=== PATIENT | female | born 1950 | race Caucasian/White ===

== ENCOUNTER 2025-02-10 08:59 | Emergency (ER) | payer MEDICARE, OTHER, SELFPAY ==
[2025-02-10] VITALS (11 sets, daily range): BP systolic 101–145; BP diastolic 67–83; PULSE 54–62; RESP 11–29; TEMP 36.3; O2SAT 96–98
--- NOTE | ~2025-02-10 | XR_ITS ---
Clinical Indication: Weakness AP and lateral views of the chest: Comparison: None Findings: The lungs are clear, without evidence of focal consolidation or pleural effusion. Cardiome diastinal silhouette is within normal limits. Bones and soft tissues are unremarkable. Impression: Normal chest. Reviewed, dictated and finalized at location . Impression: Normal chest.
--- NOTE | 2025-02-10 09:09 | ECG_ITS ---
Test Date: 2025-02-10 09:08:32 Measurements Intervals [place] Rate: 54 P: 55 CA: 201 QRS: 52 QRSD: 94 T: 45 QT: 431 QTc: 411 Interpretive Statements SINUS BRADYCARDIA BORDERLINE AV CONDUCTION DELAY BASELINE ARTIFACT- I, II, III, AVR, AVL, AVF, V1-V6 BORDERLINE ECG No previous ECG available for comparison Electronically Signed On 02-10-2025 09:33:58 CDT by Ran Laura D.O.
[2025-02-10 09:26] LABS: Basophils Absolute Auto 0.1 K/mm3 (0.0-0.1); Basophils Percent Auto 0.6 % (0.2-1.2); Eosinophils Absolute Auto 0.3 K/mm3 (0-0.3); Eosinophils Percent Auto 3.4 % (0-4.4); Hematocrit 41.4 % (37.0-47.0); Hemoglobin 13.5 g/dL (12.0-15.0); Immature Granulocyte Absolute 0.04 K/mm3 (0.00-0.031); Immature Granulocyte Percent A 0.5 % (0-0.5); Lymphocytes Absolute Auto 0.98 K/mm3 (0.9-3.2); Lymphocytes Percent Auto 11.3 % (18.3-44.2); Mean Corpuscular HGB Conc 32.6 g/dl (32-36); Mean Corpuscular Hemoglobin 30.1 pg (26-34); Mean Corpuscular Volume 92.2 fl (80-100); Mean Platelet Volume 9.9 fl (7.4-10.4); Monocytes Absolute Auto 0.8 K/mm3 (0.1-0.6); Monocytes Percent Auto 8.8 % (2.6-8.5); Neutrophils Absolute Auto 6.6 K/mm3 (1.3-6.7); Neutrophils Percent Auto 75.4 % (45.5-73.1); Platelet Count Result 284 k/mm3 (150-375); Red Blood Count 4.49 M/mm3 (4.2-5.4); Red Cell Distribution Width 13.1 % (11.5-14.5); White Blood Count 8.7 K/mm3 (4.5-10.0)
[2025-02-10 09:38] LABS: Alanine Aminotransferase 24 U/L (6-35); Albumin Level 4.3 g/dL (3.5-5.1); Alkaline Phosphatase 60 U/L (38-126); Anion Gap 7 mmol/L (4-12); Aspartate Amino Transferase 38 U/L (14-36); Bilirubin,Total 0.9 mg/dL (0.2-1.3); Blood Urea Nitrogen 15 mg/dL (7-17); Carbon Dioxide 26 mmol/L (22-30); Chloride 97 mmol/L (98-107); Estimated CRCL calculation 49 ml/min; Estimated Glomerular Filt Rate > 60; Glucose 103 mg/dL (65-110); Potassium 4.5 mmol/L (3.4-5.0); Sodium 130 mmol/L (137-145)
--- NOTE | 2025-02-10 09:44 | ED_ITS ---
HPI - Weakness General Chief complaint: Weakness Stated complaint: weakness, near syncope Time Seen by Provider: 02/10/25 09:43 Source: patient, family and RN notes reviewed Mode of arrival: EMS Limitations: no limitations History of Present Illness HPI Narrative: Patient presents with report of weakness. She states she had a near syncopal episode and adamantly denies losing consciousness and muscle tone however daughter states that she did. Patient states when she woke up she still felt tired. She felt like she had to go the bathroom and had a hard stool. But later she felt like she had to go to the bathroom again due to gurgling in her abdomen. She states she did not really eat dinner last night and in general over the last several days has been eating junk food ([employer]) while visiting. She notes that she had abdominal pain and felt flushed. For breakfast she had had toast and coffee and half of a boost drink. EMS was called and they reported initial blood pressure of 78/48. She has a history of hypertension and took her medications 30 minutes before her episode. She is wondering if perhaps she does not need to be on antihypertensives anymore given that she has made a lot of lifestyle changes including quitting smoking and exercising. Will check she endorses exercising yesterday and, this combined with the fact that she did not really eat well yesterday makes her believe she might be a bit dehydrated. She felt nauseated around the time of the event. She feels absolutely fine now any abdominal pain. She had no chest pain shortness of breath at the time of the incident. No history of CHF. When she felt acutely unwell she was laying down on the couch with her head down but got up to try to use the bathroom again and in fact had 2 more bowel movements while EMS was present. Related Data Allergies Allergy/AdvReac Type Severity Reaction Status Date / Time Penicillins Allergy Severe Anaphylactic Verified 02/10/25 09:17 Shock ibuprofen (From Motrin) AdvReac Intermediate Abdominal Verified 02/10/25 09:17 Pain codeine AdvReac Unknown Unknown Verified 02/10/25 09:17 [facility] Past Medical History Medical History Hypertension Social History Social History Social History: Starting to exercise regularly 2024 Smoking status: Former smoker Exam 2 Narrative: GENERAL: Well-appearing, well-nourished, and in no acute distress. HEAD: Normocephalic, atraumatic. EYES: Non injected, non icteric ENT: Nares clear, no rhinorrhea or epistaxis. Tacky mucous membranes NECK: Supple. CHEST: Speaking in full sentences. No respiratory distress. HEART: Borderline bradycardic rate and rhythm. . ABDOMEN: Soft, nondistended. EXTREMITIES: Normal range of motion. No lower extremity edema. SKIN: Warm, dry, no rash. NEURO: No focal deficits. Alert and oriented x3. PSYCH: Normal mood and affect. Course Vital Signs Vital signs: Vital Signs Temperature 97.3 F L 02/10/25 08:58 Pulse Rate 59 L 02/10/25 08:58 Respiratory Rate 16 02/10/25 08:58 Blood Pressure 134/83 02/10/25 08:58 Pulse Oximetry 98 02/10/25 08:58 Temperature 97.3 F L 02/10/25 08:58 Pulse Rate 62 02/10/25 12:16 Respiratory Rate 20 02/10/25 12:16 Blood Pressure 116/70 02/10/25 12:16 Pulse Oximetry 96 02/10/25 12:16 Oxygen Delivery Room Air 02/10/25 09:22 MDM - Weakness MDM Narrative Medical decision making narrative: Patient presents after report of feeling weak and nauseated and having a syncopal versus near syncopal event (patient adamantly denies losing muscle tone/consciousness, only that she felt like she might). In the emergency department she is afebrile with vital signs notable for borderline bradycardia. Patient's symptoms sound very consistent with orthostatic hypotension as she knows that there preceded by her laying on the couch and then getting up to go to the bathroom. There is possibly component of vasovagal as well given that she had been having multiple bowel movements prior to feeling that way and then even after EMS arrival. They reported initial blood pressure of 78/48 however her blood pressure on arrival here is 134/83. Hyponatremia with no prior for comparison. Not to a degree to suggest cause of symptoms. Normal troponin. Patient is given IV fluid hydration. Ortho stats are reviewed and appropriate. Starke Syncope Rule: Congestive heart failure history: 0 Hematocrit <30%: 0 EKG abnormal (changed or any non-sinus rhythm): 0 SOB symptoms: 0 SBP <90mmHg at triage: 0 Low risk. At the time of my assessment patient stated she was already feeling much better and she continues to feel sign while in the emergency department. Nurse notes that she is able to ambulate with steady gait to the bathroom. She was only able to initially give a small amount of urine which even further supports a degree of dehydration (combined with tacky mucous membranes on initial assesment) which has now been addressed. Differential Diagnosis Differential diagnosis: Likely acute myocardial infarction, anemia, hypoglycemia, dehydration and other (Orthostatic, vasovagal, tachydysrhythmia, Sukhdev dysrhythmia, complete heart block) Lab Data Attestation: I reviewed the patient's lab results. 02/10/25 09:20 02/10/25 09:20 Labs: Lab Results 02/10/25 02/10/25 02/10/25 Range/Units 09:19 09:20 11:27 WBC 8.7 (4.5-10.0) K/mm3 RBC 4.49 (4.2-5.4) M/mm3 Hgb 13.5 (12.0-15.0) g/dL Hct 41.4 (37.0-47.0) % MCV 92.2 (80-100) fl MCH 30.1 (26-34) pg MCHC 32.6 (32-36) g/dl RDW 13.1 (11.5-14.5) % Plt Count 284 (150-375) k/mm3 MPV 9.9 (7.4-10.4) fl Immature Gran % (Auto) 0.5 (0-0.5) % Neut % (Auto) 75.4 H (45.5-73.1) % Lymph % (Auto) 11.3 L (18.3-44.2) % [place] % (Auto) 8.8 H (2.6-8.5) % Eos % (Auto) 3.4 (0-4.4) % Baso % (Auto) 0.6 (0.2-1.2) % Lymph # (Auto) 0.98 (0.9-3.2) K/mm3 [place] # (Auto) 0.8 H (0.1-0.6) K/mm3 Eos # (Auto) 0.3 (0-0.3) K/mm3 Baso # (Auto) 0.1 (0.0-0.1) K/mm3 Abs Immat Gran (auto) 0.04 H (0.00-0.031) K/mm3 Absolute Neuts (auto) 6.6 (1.3-6.7) K/mm3 Absolute Nucleated RBC 0.000 (0.0-0.012) K/mm3 Nucleated RBC % 0.0 (0.0-0.2) % Sodium 130 L (137-145) mmol/L Potassium 4.5 (3.4-5.0) mmol/L Chloride 97 L (98-107) mmol/L Carbon Dioxide 26 (22-30) mmol/L Anion Gap 7 (4-12) mmol/L BUN 15 (7-17) mg/dL Creatinine 0.67 L (0.7-1.0) mg/dL Estim Creat Clear Calc 49 ml/min Estimated GFR > 60 (59 - ) Glucose 103 (65-110) mg/dL Calcium 9.0 (8.4-10.2) mg/dL Total Bilirubin 0.9 (0.2-1.3) mg/dL AST 38 H (14-36) U/L ALT 24 (6-35) U/L Alkaline Phosphatase 60 (38-126) U/L Troponin I < 0.012 (0.000-0.034) ng/mL Total Protein 7.0 (6.3-8.2) g/dL Albumin 4.3 (3.5-5.1) g/dL Urine Color Cancelled Urine Appearance Cancelled Urine pH Cancelled Ur Specific [place] Cancelled Urine Protein Cancelled Urine Glucose (UA) Cancelled Urine Ketones Cancelled Ur Blood (Man) Cancelled Urine Nitrate Cancelled Urine Bilirubin Cancelled Urine Urobilinogen Cancelled Add Ur Microanalysis Cancelled Leukocyte Esterase Rfl Cancelled Urine RBC Cancelled Urine WBC Cancelled Urine WBC Clumps Cancelled Ur Squamous Epith Cells Cancelled Ur Transition Epith Cell Cancelled Ur Renal Epithelial Cell Cancelled [place] Biurate Crystals Cancelled Calcium Carbonate Cryst Cancelled Calcium Phosphate Cryst Cancelled Calcium Oxalate Crystal Cancelled Leucine Crystals Cancelled Cystine Crystals Cancelled Uric Acid Crystals Cancelled Triple Phos Crystals Cancelled Sulfonamide Crystals Cancelled Cholesterol Crystals Cancelled Talc Crystals Cancelled Tyrosine Crystals Cancelled Hippuric Acid Crystals Cancelled Bilirubin Crystals Cancelled Other Crystals Cancelled Amorphous Sediment Cancelled Other Sediment Cancelled Urine Bacteria Cancelled Urine Casts Cancelled Cellular Casts Cancelled Epithelial Casts Cancelled Fatty Casts Cancelled Hyaline Casts Cancelled Granular Casts Cancelled Waxy Casts Cancelled Broad Casts Cancelled RBC Casts Cancelled WBC Casts Cancelled Urine Starch Cancelled Urine Mucus Cancelled Urine Trichomonas Cancelled Urine Yeast (Budding) Cancelled Ur Oval Fat Bodies Cancelled Sperm Presence Cancelled Imaging Data Radiologist's impression: Impression: Normal chest. ECG Data EKG #1: Attestation: I personally reviewed and interpreted this ECG as follows: ECG completion date: 02/10/25 ECG completion time: 09:08 Interpretation: Sinus bradycardia rate of 54 beats per minute. UT interval 201. This is consistent with a first-degree AV block. QRS 94. QT/QTC 431/417. Good R-wave progression across the precordial leads. No T-wave inversions. Discharge Plan Discharge Clinical Impression: Hyponatremia, Orthostatic syncope, Near syncope Patient Disposition: Home Condition: Stable Instructions: Antibiotic Form, Hyponatremia (ED), Near Syncope (ED), Syncope in Older Adults (ED) Additional Instructions: As we discussed, your symptoms sound consistent with orthostatic near syncope/syncope. We checked your vital signs to assess for this after which received fluid hydration, they were better. Rest and maintain your hydration and nutrition today. Follow-up the primary care physician. If you do not have 1 but remain in the area the name of a doctor is listed below. Return to the emergency department with any new or worsening symptoms Patient Language: Uzbek Follow-up/Referrals: Asim Abdi MD [Physician] - UNKNOWN,DOCTOR [Primary Care Provider] - Time of Disposition: 12:15
[2025-02-10] MEDS: SODIUM CHLORIDE 0.9% IV 1,000 ML 999 ML IV CONT (10:13)
[2025-02-10 10:53] LABS: Troponin I < 0.012 ng/mL (0.000-0.034)
--- OUTSIDE RECORDS SUMMARY | 2025-02-10 11:28 | XMS_ITS ---
Author Organization [facility] [place] Address [address] [place] [address] Care Team Providers Care Upsetter Helper Name Role Phone Mya Winchester Primary Care Provider Minh Tovar [phone] REASON FOR VISIT test results Encounters Encounter Location Date Provider Diagnosis [facility] [address] [facility] [address] [place] [address] 12/18/2024 Minh Holm Plan Of Treatment Next Appt Details Provider Name:Minh Xie i, 04/14/2025 12:50:00 PM, [address] [place], [address], Progress Notes * Annemarie ORTEGADOB:[birth year] (74 yo F)Acc No.[id number]:12/18/2024 Patient: Francisco Annemarie RUBIO :1950 A ge:74 Y S ex:Female [address] [address] [place] [address] * true * Date: Generated for Printi ng/Faxing/eTransmitting on: 0 02/10/2025 12:28 PM EDT
--- OUTSIDE RECORDS SUMMARY | 2025-02-10 11:29 | XMS_ITS | Encounter Summary ---
Author Organization [facility] Address [address] [place] [id number] Care Team Providers Care Unix Administrator Name Role Phone Kareen Winchester MD Primary Care Provider + Encounter Details Date Type Department Care Team (Late st Contact Info) Description 05/26/2024 Lab Requisition [facility] [address] [place] [address] [place] [address] [facility] [address] [place] [address] Social History Tobacco Use Types Packs/Day Years Used Date Smoking Tobacco: Former Cigarettes Q uit: 11/05/2018 Smokeless Tobacco: Former Quit: 11/05/2018 Comments:Hx 49 years 1/2 to 1 ppd. Multiple attempts to quit starting in 1992 Alcohol Use Standard Drinks/Week Comments Not Currently 0 (1 standard drink = 0.6 oz pur e alcohol) Comments Unknown Sex and Gender Information Value Date Recorded Sex Assigned at Female 01/23/2024 10:45 PM EDT Legal Sex Female 10:45 PM EDT Gender Identity Female 01/23/2024 10:45 PM EDT Sexual Orientation Straight 01/23/2024 10 :45 PM EDT documented as of this encounter Plan of Treatment Upcoming Encounters Date Type Department Care Team (Late st Contact Info) Description 06/02/2025 9:30 AM EDT [facility] [address] [facility] [address] [place] [address] Lazaro Murillo MD [address] [place] [address] documented as of this encounter Procedures Procedure Name Priority Date/Time Associated Diagnosis Comments BODY FLUID MAN DIFF KEYBOARD Routine 05/26/2024 4:20 PM EDT BODY FLUID CELL COUNT WITH DIFF IF INDICATED STAT 05/26/2024 4:20 PM EDT BODY FLUID CULTURE STAT 05/26/2024 4: 20 PM EDT WOUND CULTURE STAT 05/26/2024 4:20 PM EDT documented in this encounter Results * Body Fluid Manual Differential (Lab only) (05/26/2024 4:20 PM EDT) Neutrophils 23 % 05/26/2024 6:52 PM EDT [facility] Lymphocytes 61 % 05/26/2024 6:52 PM EDT [facility] Monocytes/Macrop hages 13 % 05/26/2024 6:52 PM EDT [facility] Eosinophils 3 % 05/26/2024 6:52 PM EDT [facility] Total Cells Counted 100 05/26/2024 6:52 PM EDT [facility] Body Fluid HIP JOINT SYNOVIAL FLUID / Unknown 05/26/2024 4:20 PM EDT 05/26/2024 5:47 PM EDT us Nati Whitney MD LAB BLOOD ORDERABLES Final Resul t [facility] [address] [place] [address] * (ABNORMAL) Body Fluid Cell Count, Diff if indicated ( [facility] Only ) (05/26/2024 4:20 PMEDT) Specimen Source Synovial, Hip, Right 05/26/2024 6:52 PM EDT [facility] Body Fluid Color [place](A) Colorless 05/26/2024 6:52 PM EDT [facility] Body Fluid Clarity Hazy(A) Clear 05/26/2024 6:52 PM EDT [facility] RBC 46,000(H) <=0 05/26/2024 6:52 PM EDT [facility] Total Nucleated Cells 571(H) <=200 /mcL 05/26/2024 6:52 PM EDT [facility] Body Fluid HIP JOINT SYNOVIAL FLUID / Unknown 05/26/2024 4:20 PM EDT 05/26/2024 5:47 PM EDT Nati Whitney MD LAB BODY FLUIDS ORDERABLES Final Result Performing Organization Address City/[facility]/ZIP Co de Phone Number [address] [facility] [place] [address] * Wound Culture (05/26/2024 4:20 PM EDT) Wound Culture No growth at 2 days [facility]MU 05/29/2024 7:38 AM EDT [facility] Gram stain Few PMNs 05/29/2024 7:38 AM EDT [facility] Gram stain No organism seen 05/29/2024 7:38 AM EDT [facility] Swabbed Collection HIP JOINT SYNOVIAL FLUID / Unknown 05/26/2024 4:20 PM EDT 05/26/2024 5:47 PM EDT Nati Whitney MD LAB MICROBIOLOGY - GENERAL ORDER MARCELO Final Result Performing Organization Address City/[facility]/ZIP Co de Phone Number [address] [facility] [place] [address] * Body Fluid Culture (05/26/2024 4:20 PM EDT) Body Fluid Culture No Growth at 4 days UMU 05/30/2024 4:53 PM EDT [facility] Gram stain No PMNs, no organisms seen 05/30/2024 4:53 PM EDT [facility] Body Fluid HIP JOINT SYNOVIAL FLUID / Unknown 05/26/2024 4:20 PM EDT 05/26/2024 5:47 PM EDT us Nati Whitney MD LAB MICROBIOLOGY - GENERAL ORDER MARCELO Final Result [facility] [address] [place] [address] documented in this encounter Visit Diagnoses Not on filedocumented in this encounter Care Teams Unix Administrator Relationship Specialty Start Date End Date Kareen Winchester MD [address] [place] [address] PCP - General Family Medicine 07/09/10 documented as of this encounter
--- OUTSIDE RECORDS SUMMARY | 2025-02-10 11:29 | XMS_ITS | Patient Health Record ---
Author Organization [facility] Address [address] [place] [address] Care Team Providers Care Route Clerk Name Role Phone Ranulfo Mya Primary Care Provider UnavailMinh Kemp Unavailable [phone] Remi Goodman Unavailable [phone] Allergies Allergen (clinical drug ingredient) Drug/Non Drug Allergy documented on EMR Reaction Allergy Type Onset Date Status ibuprofen Ibuprofen stomach upset Drug Allergy Act hipolito codeine Codeine anaphylaxis Drug Allergy Activ e Penicillin anaphylaxis Drug Allergy Acti ve Reason For Referral No Information Medications Medication SIG (Take, Route, Frequency, Duration) Notes Start Date End Date Status Aspirin 81 MG 1 tablet Orally Once a day Active Eliquis 5 MG 1 tablet Orally Twic e a day for 90 days Active ZyrTEC 10 MG 1 tablet Orally Once a day Active Atorvastatin Calcium 40 MG 1 tablet Orally Once a day Active Fish Oil Active Calcium & Magnesium Carbonates Active Vitamin C Active Spiriva Respimat 2.5 MCG/ACT 2 puffs Inhalation once a day Not-Taking oxyBUTYnin Chloride ER 5 MG 1 tablet Orally Once a day Active Albuterol Sulfate HFA 108 (90 Base) MCG/ACT 1 puff as needed Inhalation every 4 hrs Active Stool Softener Activ e Zinc Active busPIRone HCl 5 MG 1 tablet daily once a day Active clopidogrel 75mg once daily No t-Taking Fluticasone Propionate 50 MCG/ACT 1 spray in each nostril Nasally Twice a day Active Flonase Active Colchicine 0.6 MG 1 tablet Orally once a day Not-Taking Varenicline Tartrate 1 MG 1 tablet after eating with a full glass of water Orally TWICE A DAY As needed Active Vitamin B + C Complex Not-Taking Symbicort 160-4.5 MCG/ACT 2 puffs Inhala tion Twice a day Active Alendronate Sodium 70 MG 1 tablet 30 min utes before the first food, beverage or medicine of the day with plain water Orally Once a day every 7 days Active Budesonide-Formoterol Fumarate 160-4.5 MCG/ACT 1 puff as needed Inhalation once a day Active Sodium Chloride 1 GM 1 tablet Orally onc e a day Active Ferrous Sulfate 325 MG as directed Orally Active Omeprazole 20 MG 1 capsule 30 minutes before morning meal Orally Once a day Active Tdcyxpf-Cmhvygdzh-Uflz 333-133-8.3 MG 1 tablet with a meal Orally Once a day Active Nebulizer - as directed three ti mes a day Active Lisinopril 20 MG TAKE 1 TABLET BY [place] TH EVERY DAY for 90 Active Folic Acid Active Metoprolol Tartrate 25 MG TAKE 1 TABLET BY MOUTH TWICE A DAY WITH FOOD FOR 30 DAYS for 30 Active Mucinex 600 MG 1 tablet as needed Orally every 12 hrs Active Turmeric 500 MG as directed Orally Active Birchleaf 3 1200 MG 1 capsule Orally Onc e a day Active Vitamin B12 1000 MCG 1 tablet Orally onc e a day Active Social History Tobacco Use: Social History Observation Description Date Details (start date - stop date) Never Smoker NA - NA Tobacco Use/Smoking Question Answer Notes Are you a nonsmoker Problems Problem Type SNOMED Code ICD Code Onset Dates Problem Status W/U Status Risk Notes Problem Atrial fibrillation (disorder) (69028789) Afib (I48.91) Active confirmed Problem 999972286 Paroxysmal atria l fibrillation (I48.0) Active confirmed Problem 310936898 Bilateral caroti d artery stenosis (I65.23) Active confirmed Problem 195379225 Coronary artery disease involving [place] coronary artery of [place] heart without angina pectoris (I25.10) Active confirmed Problem 97918908 Hyperlipidemia, unspecified hyperlipidemia type (E78.5) Active confirmed Problem 82978820 Hypertension, unspecified type (I10) Active confirmed Problem 857588627568736 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) Active confirmed Vital Signs Heart Rate 60 /min 08/20/2024 Oximetry 93 % 08/20/2024 Height 62 in 08/20/2024 Weight 131 lbs 08/20/2024 BMI 23.96 kg/m2 08/20/2024 Encounters Encounter Location Date Provider Diagnosis [facility] [address] [place] [address] 08/20/2024 Remi Goodman Coronary artery dise ase involving [place] coronary artery of [place] heart without angina pectoris I25.10 ; Hypertension, unspecified type I10 ; Paroxysmal atrial fibrillation I48.0 ; Bilateral carotid artery stenosis I65.23 ; Hyperlipidemia, unspecified hyperlipidemia type E78.5 ; Other pericarditis, unspecified chronicity I31.8 ; History of COPD Z87.09 and Former smoker Z87.891 [facility] [address] [facility] [place] [address] 12/11/2024 Minh Holm [facility] [address] [place] [address] 12/18/2024 Minh Alta [facility] [address] [place] [address] 12/24/2024 Minh Alta [facility] [address] [place] [address] 12/24/2024 Minh Alta Assessments Encounter Date Diagnosis (ICD Code) Assessment Notes Treatment Notes Treatment Clinical Notes Section Notes 08/20/2024 Coronary artery disease involving [place] coronary artery of [place] heart without angina pectoris (ICD-10 - I25.10) Patient has a history of coronary artery disease. She had cardiac cath in 10/2022 which showed mild to moderate CAD. EKG today is SB, 1st degree block. She denies chest pain, shortness of breath, dizziness, or palpitations. Had a stress test done earlier this year seen below. Will continue with current meds and continue to monitor. Lexiscan Stress Test 01/08/24: Read as normal perfusion. Official report to follow Cardiac Cath 10/22/22: Impression:1. Mild to moderate coronary artery disease2. Normal LV systolic function with normal filling pressures. 08/20/2024 Hypertension, unspecified type (ICD-10 - I10) BP is elevated in the office today. Patient states her BP usually runs around 120/70s at home. Low sodium diet advised. Will continue with current meds and continue to monitor. Echocardiogram 03/12/23: Normal LV systolic function with visual EF 60-65%. Doppler evidence of grade I (impaired) diastolic dysfunction. Trileaflet aortic valve with trace regurgitation. Mild aortic valve leaflet calcification. Mild (Grade I) mitral regurgitation. Mild mitral valve leaflet calcification. Structurally normal tricuspid valve with mild regurgitation. Mild pulmonary hypertension. Structurally normal pulmonic valve with trace regurgitation. IVC is normal with a respiratory response of <50%. 08/20/2024 Paroxysmal atrial fibrillation (ICD-10 - I48.0) Patient has a history of Atrial fibrillation. EKG today is SB, 1st degree block. She is on BB and Eliquis therapy. Denies blood in urine, blood in stool, or black tarry stools. Will continue with current meds and continue to monitor. 08/20/2024 Bilateral carotid artery stenosis (ICD-10 - I65.23) Patient has a history of stroke in 2019, central retinal artery occlusion of left eye. Patient had a carotid duplex performed on 08/01/2022 that showed Mild stenosis in the right internal carotid artery (< 50%). Mild stenosis in the left internal carotid artery (< 50%). Antegrade right vertebral artery flow. Antegrade left vertebral artery flow with elevated velocity. She is currently asymptomatic. Physical exam shows right side carotid bruit. Will obtain a carotid duplex to reassess the stenosis. Will continue with current meds and continue to monitor. 08/20/2024 Hyperlipidemia, unspecified hyperlipidemia type (ICD-10 - E78.5) Lipids are managed by primary care physician. We will continue medical therapy and continue monitoring. Patient is encouraged to maintain a low-fat, low-cholesterol , 2 g sodium per day diet and exercise 20-30 minutes daily as tolerated. 08/20/2024 Other pericarditis, unspecified chronicity (ICD-10 - I31.8) Patient has history of pericarditis for which she was taking Colchine for. Reviewed and discussed prior echo results seen below. Will continue to monitor. Echocardiogram 03/12/23: Normal LV systolic function with visual EF 60-65%. Doppler evidence of grade I (impaired) diastolic dysfunction. Trileaflet aortic valve with trace regurgitation. Mild aortic valve leaflet calcification. Mild (Grade I) mitral regurgitation. Mild mitral valve leaflet calcification. Structurally normal tricuspid valve with mild regurgitation. Mild pulmonary hypertension. Structurally normal pulmonic valve with trace regurgitation. IVC is normal with a respiratory response of <50%. 08/20/2024 History of COPD (ICD-10 - Z87.09) Patient has a PMH of COPD for which she sees Dr. Murillo for. 08/20/2024 Former smoker (ICD-10 - Z87.891) Patient is a former smoker, she quit smoking in 2018. Plan Of Treatment Pending Test Test Name Order Date -Carotid doppler 08/20/2024 -EKG 08/20/2024 -EKG 07/04/2022 -EKG 12/18/2023 -Lexiscan 12/18/2023 -Lexiscan 07/04/2022 VASC BILATERAL CAROTID DUPLEX 02/15/2023 Next Appt Details Provider Name:Minh Xie i, 04/14/2025 12:50:00 PM, [address] , [place], [address], Insurance Providers Payer Name Payer Address Payer Phone Subscriber Number Group Number Insured Name Patient Relationship to Insured Coverage Start Date Coverage End Date MEDICARE [employer] [place] [address] [address] [place] [address] [id number] Annemarie Hutson Self - patient is the insured [employer] [address] [place] [address] [phone] [id number] Annemarie Hutson Self - patient is the insured MEDICARE [employer] [facility] [address] [place] [address] [id number] Annemarie Hutson Self - patient is the insured Medical (General) History Medical History History ICD Code Chronic obstructive pulmonary disease, u nspecified J44.9 Hyperlipidemia, unspecified E78.5 Essential (primary) hypertension I10 Lung nodule R91.1 Alcohol abuse, uncomplicated F10.10 Gastro-esophageal reflux disease without esophagitis K21.9 Other osteoporosis without current patho logical fracture M81.8 Anxiety disorder, unspecified F41.9 Central retinal artery occlusion, unspec ified eye H34.10 Surgical History Surgery Date(Month/Year) breast biopsy tonsillectomy and adenoidectomy cardiac cath no intervention 10/22/2022 lexiscan stress test 01/08/24 Hospitalization History Reason Date(Month/Year) Pilar @ [facility] 10/2022 FLU/ @ [facility] 11/2022
--- OUTSIDE RECORDS SUMMARY | 2025-02-10 11:29 | XMS_ITS | Referral Summary ---
Author Organization [place] ([facility] ore 05/25/2024) ([employer]) Address [address] [place] [address] Care Team Providers Care Shear Tender Name Role Phone Kareen Winchester MD Primary Care Provider + Allergies Active Allergy Reactions Criticality Noted Date Comments Codeine Anaphylaxis/Shock High 08/18/2010 Ibuprofen Micronized GI Distress 09/08/2010 Penicillin G Anaphylaxis/Shock High 08/18/2010 Had reaction > 10 yrs ago, not sure if she has ever had augmentin, amoxicillin, keflex, or ancef Medications Medication Sig Dispensed Refills Start Date End Date Status Lisle-3 Fatty Acids 1000 MG PO Cap take 1 Capsule by mouth once daily. Active omeprazole (PriLOSEC) 20 MG PO CAPSULE DELAYED RELEASE take 1 Capsule by mouth once daily before breakfast. 90 Capsule 1 07/03/2023 Active Additional Information Patient taking differently:20 mg OralEVERY EVENING, Reported on 04/21/2024 oxyBUTYnin (DITROPAN) 5 MG PO Tab take 1 Tablet by mouth twice daily. 180 Tablet 3 10/15/2023 Active busPIRone (BUSPAR) 5 MG PO Tab take 1 Tablet by mouth twice daily. Active ferrous sulfate 325 (65 Fe) MG PO Tab take 1 Tablet by mouth once daily. Active docusate (COLACE) 100 MG PO Cap take 1 Capsule by mouth once daily. Active guaiFENesin (MUCINEX) 600 MG PO TABLET SR 12 HR take 1 Tablet by mouth once every morning. Active Turmeric 400 MG PO Cap take by mouth once daily. Active Vitamin D, Cholecalciferol, 10 MCG (400 UNIT) PO Cap take by mouth once daily. Active vitamin C, ascorbic acid, 250 MG PO Tab take 1 Tablet by mouth once daily. Active folic acid (FOLATE) 1 MG PO Tab take 1 Tablet by mouth once daily. Active Rvgqdku-Cajjcttbr-M inc 333-133-5 MG PO Tab take by mouth once daily. Active cetirizine (ZyrTEC) 5 MG PO Chew Tab take 1 Tablet by mouth once daily. Active Alendronate Sodium 70 MG PO Tab take 1 Tablet by mouth every 7 days. Takes on Tuesdays01/07/2024 Active lisinopril (PRINIVIL, ZESTRIL) 20 MG PO Tab 1 Tablet once daily. 01/09/2024 Active varenicline (Chantix) 1 MG PO Tab take 1 Tablet by mouth twice daily. 60 Tablet 1 02/11/2024 Active albuterol-ipratropi um (DUONEB) 0.5-2.5 (3) MG/3ML INHAL Solution inhale 3 mL into the lungs 3 times daily. 360 mL 1 03/24/2024 Active mupirocin (BACTROBAN) 2 % EXTERNAL Ointment APPLY PEA-SIZED AMOUNT TO EACH NOSTRIL BOTH AM & PM THE 5 DAYS PRIOR TO SURGERY 30 g 03/28/2024 Active metoprolol (LOPRESSOR) 25 MG PO Tab take 1 Tablet by mouth twice daily. 180 Tablet 04/08/2024 Active CLINDAMYCIN HCL PO take 1 Capsule by mouth once daily. Active tiZANidine (ZANAFLEX) 2 MG PO Tab take 1 Tablet by mouth every 8 hours as needed for FOR MUSCLE SPASM. 30 Tablet 04/22/2024 Active traMADol (ULTRAM) 50 MG PO Tab take 1 Tablet by mouth every 6 hours as needed for FOR MODERATE PAIN or FOR SEVERE PAIN. 10 Tablet 04/22/2024 Active apixaban (ELIQUIS) 5 MG PO Tab take 1 Tablet by mouth every 12 hours. Hold until cleared by your surgeon 04/22/2024 Active aspirin (ECOTRIN) 81 MG PO Tablet Delayed Response take 1 Tablet by mouth every 12 hours. 56 Tablet 04/22/2024 Active Naproxen Sodium 220 MG PO Cap take 1 Capsule by mouth every 6 hours as needed (for pain). 60 Capsule 04/22/2024 Active albuterol HFA 108 (90 Base) MCG/ACT INHAL Aero SolnIndications:Pul monary emphysema, unspecified emphysema type (CMS/HCC),COPD, moderate (CMS/HCC) inhale 2 Puffs into the lungs every 4 hours as needed for FOR SHORTNESS OF BREATH. (disp insurance-pref prod) 18 g 3 04/22/2024 Active atorvastatin (LIPITOR) 40 MG PO TabIndications:Hype rlipidemia LDL goal <100 take 1 Tablet by mouth once every night at bedtime. 90 Tablet 04/24/2024 Active HYDROcodone-acetami nophen (NORCO) 5-325 MG PO TabIndications:Biology [employer]ship [place] pain disorder,Status post hip surgery take 1 Tablet by mouth every 6 hours as needed for FOR PAIN. 30 Tablet 04/28/2024 Active budesonide-formoter ol (Symbicort) 160-4.5 MCG/ACT INHAL inhaler inhale 2 Puffs into the lungs twice daily. 10.2 g 3 05/05/2024 Active sodium chloride 1 g PO Tab take 1 Tablet by mouth twice daily. 60 Tablet 3 05/20/2024 Active Active Problems Problem Noted Date Diagnosed Date Alcohol dependence in remission 04/28/2024 Atherosclerosis of aorta 04/28/2024 Other specified coagulation defects 04/28/2024 COPD (chronic obstructive pulmonary disease) 09/2024 History of CVA (cerebrovascular accident) 2023 Pain of right hip joint 09/11/2023 Primary osteoarthritis of right hip 06/26/2023 COPD exacerbation 11/11/2022 Paroxysmal atrial fibrillation 11/09/2022 Influenzal acute upper respiratory infection 03/2023 Acute pericarditis 10/23/2022 Chest pain 10/22/2022 Atrial fibrillation 10/22/2022 Leukocytosis 10/22/2022 GERD (gastroesophageal reflux disease) Occlusion and stenosis of bilateral carotid pako suhail 10/13/2022 COVID-19 10/07/2022 Hyponatremia 10/06/2022 Advanced care planning/counseling discussion Overview (07/01/2021): Yumiko [phone]=daughter Central retinal artery occlusion 05/18/2018 Dyslipidemia 05/18/2018 COPD with exacerbation 05/18/2018 CRAO (central retinal artery occlusion), left Tobacco abuse 05/17/2018 Essential hypertension 05/17/2018 Sinus congestion 05/17/2018 CRVO (central retinal vein occlusion) 05/17/2018 Syncope 06/12/2015 Fibrocystic mastitis 08/20/2010 Resolved Problems Problem Noted Date Diagnosed Date Resolved Date Combined forms of age-relate d cataract of left eye 06/19/2023 06/19/2023 Cancer 11/07/2022 12/17/2023 Hypotension 10/22/2022 10/23/2022 Combined forms of age-relate d cataract of right eye 08/22/2022 08/22/2022 Sinusitis, acute 09/13/2011 08/27/2015 Bronchitis 09/13/2011 08/27/2015 Immunizations Name Administration Dates Next Due COVID-19, mRNA, LNP-S, PF, 5 0 mcg/0.5 mL 08/15/2023 Covid-19 Vaccine (Moderna) 07/01/2021,02/09/2021 ,01/12/2021 INFLUENZA SHOT TIV (INJECT) 11/05/2021, 9 Influenza High Dose PF (Fluzone) 020,06/17/2018,08/22/2017,07/17,07/20/2015 Influenza Vaccine, Quadrival ent, (Fluzone High-dose) Injection 06/26/2022,07/01/2021 Influenza Vaccine, Trivalent Adjuvanted PF (Fluad) 06/27/2019 Influenza Vaccine, injection , quadrivalent (Preservative-Free) 10/11/2013 Pneumococcal Conjugate (PCV13)([id number]) 07/20/2015 Pneumococcal Polysaccharide (PPSV23)(Pneumovax) 07/17/2016 RSV, Recombinant, Protein Opnd bunit RsvpreF, Adj Recon, 0.5 mL, PF 07/11/2023 TDaP (Adol/Adult) 10/11/2013 Zoster (Zostavax)(shingles) Vaccine, Live 05/24/2015 influenza vaccine (FLUAD PATY DRIVALENT) injection patient age 65 years and older 08/15/2023 Social History Tobacco Use Types Packs/Day Years Used Date Smoking Tobacco: Former Cigarettes 1 50 1 969 - 2019 Smokeless Tobacco: Former Quit: 2019 Tobacco Cessation:Counseling Given: Not Answered Comments:Hx 49 years 1/2 to 1 ppd. Multiple attempts to quit starting in 1992 Alcohol Use Standard Drinks/Week Comments Not Currently 0 (1 standard drink = 0.6 oz pur e alcohol) recovering alcoholic 1992 PHQ-2 Answer Date Recorded Patient Health Questionnaire-2 Score 0 07/03/2023 Sex and Gender Information Value Date Recorded Sex Assigned at Female 09/23/2022 9:12 AM EST Gender Identity Female 09/23/2022 9:12 AM EST Sexual Orientation Straight 09/23/2022 9: 12 AM EST Last Filed Vital Signs Vital Sign Reading Time Taken Comments Blood Pressure 128/66 04/28/2024 12:32 PM EDT Pulse 70 04/28/2024 12:32 PM EDT Temperature 36.3 C (97.4 F) 04/28/2024 12:32 PM EDT Respiratory Rate 16 04/22/2024 7:30 AM EDT Oxygen Saturation 96% 04/22/2024 7:34 AM EDT Inhaled Oxygen Concentration - - Weight 60.1 kg (132 lb 9.6 oz) 04/28/2024 12:32 PM EDT Height 157.5 cm (5' 2 ) 04/28/2024 12:32 PM EDT Body Mass Index 24.25 04/28/2024 12:32 PM EDT Plan of Treatment Not on file Medical Devices Implanted Type Area Assistant Distribution Manager Device Identifier Shelf Expiration Date Model / Serial / Lot Lens Intraocular,23. 5d, [id number] Implanted:Qty: 1 on 08/22/2022 by Henrry Matthew MD at [facility] Right: Eye 02/11/2027 [id number] / [id number] / Lens Intraocular,23. 5d, [id number] Implanted:Qty: 1 on 06/19/2023 by Henrry Matthew MD at [facility] Left: Eye 07/09/2027 [id number] / [id number] / Head Femoral Biolox Ceramic -3.5mm Neck 36mm [id number] Implanted:Qty: 1 on 04/21/2024 by Nati Whitney MD at [facility] Right: Hip ASHANTI BIOMET 11/22/2033 [id number] / / [id number] Stem,Femoral,Hi gh Offset Collared,Size 4, [id number] Implanted:Qty: 1 on 04/21/2024 by Nati Whitney MD at [facility] Right: Hip Ashanti 02/05/2029 [id number] / / [id number] Screw Bone Acetabular Trilogy Full Thread Hex Drive Cancellous Self Tapping Ti 6.5x25mm [id number] Implanted:Qty: 1 on 04/21/2024 by Nati Whitney MD at [facility] Right: Hip [employer] 08/07/2033 [id number] / / [id number] Screw Bone Acetabular Trilogy Full Thread Hex Drive Cancellous Self Tapping Ti 6.5x20mm [id number] Implanted:Qty: 1 on 04/21/2024 by Nati Whitney MD at [facility] Right: Hip [employer] 06/08/2033 [id number] / / [id number] Liner,G7 Longevity,High Wall,36mm D, [id number] Implanted:Qty: 1 on 04/21/2024 by Nati Whitney MD at [facility] Right: Hip 02/24/2029 [id number] / / [id number] Shell,Acetabula r,3 Hole,50mm, [id number] Implanted:Qty: 1 on 04/21/2024 by Nati Whitney MD at [facility] Right: Hip 02/14/2034 [id number] / / [id number] Procedures Procedure Name Priority Date/Time Associated Diagnosis Comments PFT - SPIROMETRY - OFFICE Now 03/18/2024 Chronic obstructive pulmonary disease, unspecified COPD type (CMS/HCC) CT LUNG CANCER SCREENING Routine 11/27/2023 9:05 AM EST Former smoker Cigarette nicotine dependence in remission BONE MINERAL DENSITY AXIAL SKELETON Routine 08/13/2023 12:44 PM EDT Post-menopause MAMMOGRAPHY SCREENING BILATERAL Routine 08/13/2023 11:53 AM EDT Screening for hyperlipidemia Depression screening Encounter for screening mammogram for malignant neoplasm of breast Smoking history Routine general medical examination at health care facility Screening for cardiovascular condition Screening for diabetes mellitus (DM) Screening for ischemic heart disease (IHD) Hypertension screen Screening for malignant neoplasm of cervix Screening for osteoporosis FECAL DNA (COLOGUARD) - OFFICE Routine 07/09/2023 8:45 PM EDT Colon cancer screening from Last 3 Months or Most Recently Relevant to Health Maintenance Results * PFT - SPIROMETRY - OFFICE (03/18/2024) Lazaro Murillo MD [facility] PULMONARY - IN OFFICE * CT LUNG CANCER SCREENING (11/27/2023 9:05 AM EST) Anatomical Region Laterality Modality Chest Computed Tomogra phy 11/27/2023 1:12 PM EST Narrative 11/27/2023 1:[address] LUNG CANCER SCREENIN11/27/2023 8:58 AM CLINICAL DATA: Lung cancer screening. COMPARISON STUDY: Chest CT dated 10/23/2022 and additional CTs dating back to 2013 TECHNIQUE: Multiple axial non-contrast images were obtained from the lung apices through the upper abdomen (2mm slice thickness). Coronal, sagittal and axial MIP reformatted images were obtained. Low dose technique was utilized. FINDINGS: Lack of intravenous contrast and low dose technique limits the evaluation of the vascular and soft tissue structures. ======== LUNGS: Interval resolution of previously described lingular opacity with a 3 mm residual nodular opacity (series 3, image 79). Mild emphysema in the upper lung zones. Stable bilateral lung RADS 2 nodules. SIGNIFICANT NODULES: None LARGE AIRWAYS: Unremarkable. PLEURA: Unremarkable. HEART: Two-vessel coronary calcification. MEDIASTINUM AND LISETH: Unremarkable. VASCULAR STRUCTURES: Moderate vascular atherosclerosis. CHEST WALL AND DIAPHRAGM: Unremarkable. LOWER NECK: Unremarkable. UPPER ABDOMEN: Punctate nonobstructing left interpolar renal calculus. MUSCULOSKELETAL: Unremarkable. IMPRESSION: Negative lung cancer screening exam. Interval near complete resolution of previously described lingular opacity. Recommendation: Continue annual screening for lung cancer with unenhanced low-dose chest CT in 12 months. Lung-RADS Category: 2 - Benign Procedure Note Jasmin Hernandez MD - 11/27/2023 CT LUNG CANCER SCREENIN11/27/2023 8:58 AM CLINICAL DATA: Lung cancer screening. COMPARISON STUDY: Chest CT dated 10/23/2022 and additional CTs dating backto 2013 TECHNIQUE: Multiple axial non-contrast images were obtained from thelung apices through the upper abdomen (2mm slice thickness). Coronal, sagittaland axial MIP reformatted images were obtained. Low dose technique wasutilized. FINDINGS: Lack of intravenous contrast and low dose technique limits the evaluation of the vascular and soft tissue structures. ======== LUNGS: Interval resolution of previously described lingular opacity with a3 mm residual nodular opacity (series 3, image 79). Mild emphysema in theupper lung zones. Stable bilateral lung RADS 2 nodules. SIGNIFICANT NODULES: None LARGE AIRWAYS: Unremarkable. PLEURA: Unremarkable. HEART: Two-vessel coronary calcification. MEDIASTINUM AND LISETH: Unremarkable. VASCULAR STRUCTURES: Moderate vascular atherosclerosis. CHEST WALL AND DIAPHRAGM: Unremarkable. LOWER NECK: Unremarkable. UPPER ABDOMEN: Punctate nonobstructing left interpolar renal calculus. MUSCULOSKELETAL: Unremarkable. IMPRESSION: Negative lung cancer screening exam. Interval near complete resolutionof previously described lingular opacity. Recommendation: Continue annual screening for lung cancer withunenhanced low-dose chest CT in 12 months. Lung-RADS Category: 2 - Benign Lazaro Murillo MD [facility] CT ORDERABLE S * BONE MINERAL DENSITY AXIAL SKELETON (08/13/2023 12:44 PM EDT) Anatomical Region Laterality Modality Nuclear Medicine 08/13/2023 12:4 4 PM EDT Impressions 08/29/2023 8:06 AM EDT : 1. The bone mineral density for the lumbar spine at the L1-L4 level gives a mild fracture risk. The bone mineral density for the lumbar spine at the L2-L4 level gives a mild fracture risk. 2. The fracture risk of the mean femoral neck is moderate. The fracture risk of the mean total hip is moderate to high. Narrative 08/29/2023 8:06 AM EDT Table formatting from the original result was not included. BONE MINERAL ANALYSIS INDICATION: 73 year old female considered at risk for osteoporosis. Bone mineral analysis was performed by dual energy x-ray absorptiometry ([employer] Advance instrument) for the lumbar spine and bilateral hips. Images of the hips and lumbar spine recorded in the course of this study were also evaluated visually. This study was supervised and viewed for interpretation by both the staff physician and resident physician. Annemarie Hutson, MR # [id number], completed a BMD test on 08/13/2023 using the [facility] [employer] System at [facility]. BASELINE STUDY DATED: 07/09/2010 PREVIOUS STUDY DATED: 07/27/2022 Site Region BMD T- Score Z- Score Change from Baseline Change from Previous WHO Class DualFemur Neck Left 0.688 g/cm2 -2.5 -0.5 -14.1 % -7.5 % Osteoporosis DualFemur Neck Right 0.891 g/cm2 -1.1 1.0 13.9 % 13.5 % Osteopenia DualFemur Neck Mean 0.789 g/cm2 -1.8 0.2 -0.4 % 3.1 % Osteopenia DualFemur Total Mean 0.731 g/cm2 -2.2 -0.3 -12.7 % -4.4 % Osteopenia AP Spine L1-L4 1.005 g/cm2 -1.5 0.5 -4.8 % -0.5 % Osteopenia AP Spine L2-L4 1.057 g/cm2 -1.2 0.8 -3.4 % 0.6 % Osteopenia In order to assist in interpretation of the information in the table above, the following criteria are provided: 1. Low bone mass (osteopenia): T-value between -1 and -2.5. 2. Osteoporosis: T-value of less than -2.5 (eg. -3.0). 3. The relative fracture risk increases two to three fold for each 10% decrease in bone mineral density below the young adult values. 4. If the bone mineral density is less than 90% of the matched population, it is more likely that a treatable cause of low bone mass or osteoporosis is present. 5. Matched population is for age (T, young adult; Z, age matched), sex, weight, ethnicity. Kareen Winchester MD [facility] IMG BMD * MAMMOGRAPHY SCREENING BILATERAL (08/13/2023 11:53 AM EDT) Anatomical Region Laterality Modality Breast Bilateral Mammography 08/16/2023 8:07 AM EDT Addenda Addendum by Chantal Montes De Oca MD on 09/12/2023 8:21 AM EST Addendum report issued on 09/12/[address] Montes De Oca: Repeat right craniocaudal view was completed and is technically adequate. There are no suspicious findings. IMPRESSION: Negative mammogram. Recommend annual screening mammography. Narrative 08/16/2023 8:10 AM EDT Procedure: MAMMOGRAPHY SCREENING BILATERAL History: Asymptomatic. Niece with breast cancer. Comparison: 07/27/2022 study and exams dating back to 06/20/2019. Findings: The breasts are composed of heterogeneously dense tissue, which may obscure small masses. No suspicious masses, calcifications or areas of distortion are seen on the submitted images. The right CC view is suboptimal due to a skin fold. The patient will be recalled for a repeat right CC image. IMPRESSION: 1. No mammographic evidence for malignancy in either breast on the submitted images. 2. Right CC view to be repeated for technical reasons. Procedure Note Arsen Martinez MD / hCantal Montes De Oca MD - 08/16/2023 Procedure: MAMMOGRAPHY SCREENING BILATERAL History: Asymptomatic. Niece with breast cancer. Comparison: 07/27/2022 study and exams dating back to 06/20/2019. Findings: The breasts are composed of heterogeneously dense tissue, which mayobscure small masses. No suspicious masses, calcifications or areas of distortionare seen on the submitted images. The right CC view is suboptimal due to askin fold. The patient will be recalled for a repeat right CC image. IMPRESSION: 1. No mammographic evidence for malignancy in either breast on thesubmitted images. 2. Right CC view to be repeated for technical reasons. Kareen Winchester MD [facility] IMG MAMMO OR DERABLES * FECAL DNA (COLOGUARD) - OFFICE (07/09/2023 8:45 PM EDT) Fecal DNA (COLOGUARD) Office Negative Negative 07/17/2023 5:24 PM EDT [employer] ([employer]IA #:[id number]) Comment: NEGATIVE TEST RESULT. A negative Cologuard result indicates a low likelihood that a colorectal cancer (CRC) or advanced adenoma (adenomatous polyps with more advanced pre-malignant features) is present. The chance that a person with a negative Cologuard test has a colorectal cancer is less than 1 in 1500 (negative predictive value >99.9%) or has an advanced adenoma is less than 5.3% (negative predictive value 94.7%). These data are based on a prospective cross-sectional study of 10,000 individuals at average risk for colorectal cancer who were screened with both Cologuard and colonoscopy. (Gus Blake et al, N Engl J Med 2014;370(14):1511-0425) The normal value (reference range) for this assay is negative. COLOGUARD RE-SCREENING RECOMMENDATION: Periodic colorectal cancer screening is an important part of preventive healthcare for asymptomatic individuals at average risk for colorectal cancer. Following a negative Cologuard result, the [place] [employer] and U.S. Multi-Society Task Force screening guidelines recommend a Cologuard re-screening interval of 3 years. References: [place] [employer] Guideline for Colorectal Cancer Screening: https://www.cancer.org/cancer/oiyhq-ehkolu-nwwuow/oetbtiyob-ywkctdluw-qtqrlyu/ac s-rec ommendations.html.; Leon DK, Lorri CR, Yaquelin ColvinK, Colorectal Cancer Screening: Recommendations for Physicians and Patients from the U.S. Multi-Society Task Force on Colorectal Cancer Screening , Am J Gastroenterology 2017; 112:5366-5316. TEST DESCRIPTION: Composite algorithmic analysis of stool DNA-biomarkers with hemoglobin immunoassay. Quantitative values of individual biomarkers are not reportable and are not associated with individual biomarker result reference ranges. Cologuard is intended for colorectal cancer screening of adults of either sex, 45 years or older, who are at average-risk for colorectal cancer (CRC). Cologuard has been approved for use by the U.S. FDA. The performance of Cologuard was established in a cross sectional study of average-risk adults aged 50-84. Cologuard performance in patients ages 45 to 49 years was estimated by sub-group analysis of near-age groups. Colonoscopies performed for a positive result may find as the most clinically significant lesion: colorectal cancer [4.0%], advanced adenoma (including sessile serrated polyps greater than or equal to 1cm diameter) [20%] or non- advanced adenoma [31%]; or no colorectal neoplasia [45%]. These estimates are derived from a prospective cross-sectional screening study of 10,000 individuals at average risk for colorectal cancer who were screened with both Cologuard and colonoscopy. (Gus Luu al, N Engl J Med 2014;370(14):4791-7679.) Cologuard may produce a false negative or false positive result (no colorectal cancer or precancerous polyp present at colonoscopy follow up). A negative Cologuard test result does not guarantee the absence of CRC or advanced adenoma (pre-cancer). The current Cologuard screening interval is every 3 years. ([place] [employer] and U.S. Multi-Society Task Force). Cologuard performance data in a 10,000 patient pivotal study using colonoscopy as the reference method can be accessed at the following location: www.kontoblick/results. Additional description of the Cologuard test process, warnings and precautions can be found at www.Beabloord.com. Stool specimen (specimen) SPECIMEN FROM RECTUM / Unknown 07/09/2023 8:45 PM EDT 07/11/2023 10:37 PM EDT Kareen Winchester MD [facility] LAB - IN OFFICE [employer] (CLIA #:[id number]) [address] [place] [address], from Last 3 Months or Most Recently Relevant to Health Maintenance Advance Directives For more information, please contact: [phone] * Full CPR (Latest Code Status on File) Date Activated Date Inactivated Comments 11/09/2022 10:42 PM 11/13/2022 8:05 PM Question Answer Comments Decision Arrived By: Decision discussed with pat ient/decision-maker * Full CPR Date Activated Date Inactivated Comments 10/23/2022 8:50 AM 10/24/2022 1:10 PM Question Answer Comments Decision Arrived By: Decision discussed with pat ient/decision-maker * Full CPR Date Activated Date Inactivated Comments 10/06/2022 3:46 PM 10/09/2022 5:17 PM Question Answer Comments Decision Arrived By: Decision discussed with pat ient/decision-maker Care Teams Shear Tender Relationship Specialty Start Date End Date Kareen Winchester MD [address] [place] [id number] PCP - General Family Medicine 07/09/10
--- OUTSIDE RECORDS SUMMARY | 2025-02-10 11:29 | XMS_ITS | Data Portability ---
Author Organization [facility], [facility] Address [address] [place] [address] Care Team Providers Care Efficiency Miner Name Role Phone SHAVON RIOS MD Primary Care Provider EDEN VILLANUEVA Referring Provider Unavailable TY RIOS Referring Provider Assessment No assessment recorded. Plan of Treatment Reminders Order Date Submit Date Provider Last Modified By Organization Details Last Modified Time Details Appointments None recorded. Lab None recorded. Referral None recorded. Procedures None recorded. Surgeries incision & drainage, pelvis/ hip joint, abscess/hem atoma (SURG) 2023 024 [email or web address] Not available 4 09:20:54 total hip arthroplast y, anterior approach (SURG) 2022 024 [email or web address] Not available 4 09:19:06 Imaging XR, hip + pelvis, unilateral, 2 or 3 view 2023 024 [facility], [address] [place], [address], 4 21:38:50 Medication Orders doxycycline hyclate 100 mg capsule 2023 024 [id number], [address] [place], [address], 4 08:23:25 Mobic 15 mg tablet 2023 024 [id number], [address] [place], [address], 4 08:25:00 hydrocodone 5 mg-acetamin ophen 325 mg tablet 2023 024 [id number], [address] [place], [address], 4 08:25:00 triamcinolo ne acetonide 40 mg/mL suspension for injection 2023 024 [id number], [address] [place], [address], 4 13:05:50 bupivacaine (PF) 0.5 % (5 mg/mL) injection solution 2023 024 [email or web address] [id number], [address] [place], [address], 4 13:05:46 Patient TargetsNo targets recorded. Patient InstructionsNo instructions recorded. Reason for Referral None Reported. Results Created Date Observation Date Name Description Value Unit Range Abnormal Flag Note LastModifiedBy Organization Detail LastModifiedTime 12/24/19 24 12/24/2023 COMPR EHENS EDENILSON METAB OLIC PANEL (CMP) sodium 128 mmol/ L 135-14 5 low Not Available [facility] [address] [place], [address], 12/24/2023 16:21:58 12/24/19 24 12/24/2023 COMPR EHENS EDENILSON METAB OLIC PANEL (CMP) potassium 4.6 mmol/ L 3.5-5. 2 Not Available [facility] [address] [place], [address], 12/24/2023 16:21:58 12/24/19 24 12/24/2023 COMPR EHENS EDENILSON METAB OLIC PANEL (CMP) chloride 95 mmol/ L 98-111 low Not Available [facility] [address] [place], [address], 12/24/2023 16:21:58 12/24/19 24 12/24/2023 COMPR EHENS EDENILSON METAB OLIC PANEL (CMP) carbon dioxide -co2 26 mmol/ L 20-29 Not Available [facility] [address] [place], [address], 12/24/2023 16:21:58 12/24/19 24 12/24/2023 COMPR EHENS EDENILSON METAB OLIC PANEL (CMP) anion gap 7 5-17 Not Available [facility] [address] [place], [address], 12/24/2023 16:21:58 12/24/19 24 12/24/2023 COMPR EHENS EDENILSON METAB OLIC PANEL (CMP) glucose 95 mg/dL 70-99 Fasti ng Blood Gluco se: 70-99 mg/dL Rando m Blood Gluco se: 70-13 9 mg/dL Not Available [facility] [address] [place], [address], 12/24/2023 16:21:58 12/24/19 24 12/24/2023 COMPR EHENS EDENILSON METAB OLIC PANEL (CMP) blood urea nitrogen -BUN 9 mg/dL 7-25 Not Available [facility] [address] [place], [address], 12/24/2023 16:21:58 12/24/19 24 12/24/2023 COMPR EHENS EDENILSON METAB OLIC PANEL (CMP) creatinine 0.70 mg/dL 0.50-1 .10 Not Available [facility] [address] [place], [address], 12/24/2023 16:21:58 12/24/19 24 12/24/2023 COMPR EHENS EDENILSON METAB OLIC PANEL (CMP) eGFR by creatinine 91 mL/mi n/1.7 3m2 >60 Calcu latio n based on the Chron ic Kidne y Disea se Epide miolo gy Colla borat ion (CKD- EPI) equat ion refit witho ut adjus tment for race. Glome rular Filtr ation Rate is estim ated from serum creat inine , age and gende r using the CKD-E PI equat ion: G1: Ananya l GFR: >=90 G2: Mildl y decre ased GFR: 60-89 G3a: Mildl y to moder ately decre ased GFR: 45-59 G3b: Moder ately to sever anita decre ased GFR: 30-44 G4: Sever anita decre ased GFR: 15-29 G5: Kidne y failu re GFR: <15 Not Available [facility] [address] [place], [address], 12/24/2023 16:21:58 12/24/19 24 12/24/2023 COMPR EHENS EDENILSON METAB OLIC PANEL (CMP) calcium 9.2 mg/dL 8.5-10 .5 Not Available [facility] [address] [place], [address], 12/24/2023 16:21:58 12/24/19 24 12/24/2023 COMPR EHENS EDENILSON METAB OLIC PANEL (CMP) protein total 6.4 g/dL 6.2-8. 1 Not Available [facility] [address] [place], [address], 12/24/2023 16:21:58 12/24/19 24 12/24/2023 COMPR EHENS EDENILSON METAB OLIC PANEL (CMP) albumin 4.2 g/dL 3.5-4. 9 Not Available [facility] [address] [place], [address], 12/24/2023 16:21:58 12/24/19 24 12/24/2023 COMPR EHENS EDENILSON METAB OLIC PANEL (CMP) globulin 2.2 g/dL 2.2-3. 7 Not Available [facility] [address] [place], [address], 12/24/2023 16:21:58 12/24/19 24 12/24/2023 COMPR EHENS EDENILSON METAB OLIC PANEL (CMP) albumin/glob ulin ratio 1.[address] [facility] [address] [place], [address], 12/24/2023 16:21:58 12/24/19 24 12/24/2023 COMPR EHENS EDENILSON METAB OLIC PANEL (CMP) alkaline phosphatase 68 U/L 37-135 Not Available [facility] [address] [place], [address], 12/24/2023 16:21:58 12/24/19 24 12/24/2023 COMPR EHENS EDENILSON METAB OLIC PANEL (CMP) aspartate aminotransfe rase -AST 23 U/L <35 Not Available [facility] [address] [place], [address], 12/24/2023 16:21:58 12/24/19 24 12/24/2023 COMPR EHENS EDENILSON METAB OLIC PANEL (CMP) alanine aminotransfe rase -ALT 16 U/L 8-37 Not Available [facility] [address] [place], [address], 12/24/2023 16:21:58 12/24/19 24 12/24/2023 COMPR EHENS EDENILSON METAB OLIC PANEL (CMP) bilirubin total 0.5 mg/dL 0.3-1. 2 Not Available [facility] [address] [place], [address], 12/24/2023 16:21:58 12/24/19 24 12/24/2023 PROTI ME AND APTT protime 12.4 secon ds 9.2-13 .5 Not Available [facility] [address] [place], [address], 12/24/2023 16:37:44 12/24/19 24 12/24/2023 PROTI ME AND APTT INR 1.1 2.0 to 3.0 Routi ne Oral Antic oagul ant Thera py 2.5 to 3.5 Oral Antic oagul ant Thera py for certa in types of Mecha nical Heart Valve s: For more detai led infor jaime sheldon, see Oswaldo Shah h Pharm acy websi te. Not Available [facility] [address] [place], [address], 12/24/2023 16:37:44 12/24/19 24 12/24/2023 PROTI ME AND APTT APTT 33.2 secon ds 25.0-3 8.0 Hepar in Thera peuti c Range : *ACS or Low Inten sity: 50-75 secon ds *VTE/ acute throm bosis /A-fi b/daniel ves: 60-90 secon ds Not Available [facility] [address] [place], [address], 12/24/2023 16:37:44 12/24/19 24 12/24/2023 CBC W/ DIFF (OUTR EACH) WBC 5.1 rylee/L 3.3-10 .7 Not Available [facility] [address] [place], [address], 12/24/2023 16:56:41 12/24/19 24 12/24/2023 CBC W/ DIFF (OUTR EACH) RBC 4.21 tril/ L 3.87-5 .08 Not Available [facility] [address] [place], [address], 12/24/2023 16:56:41 12/24/19 24 12/24/2023 CBC W/ DIFF (OUTR EACH) hemoglobin 12.7 g/dL 12.1-1 5.0 Not Available [facility] [address] [place], [address], 12/24/2023 16:56:41 12/24/19 24 12/24/2023 CBC W/ DIFF (OUTR EACH) hematocrit 38.6 % 35.4-4 4.2 Not Available [facility] [address] [place], [address], 12/24/2023 16:56:41 12/24/19 24 12/24/2023 CBC W/ DIFF (OUTR EACH) MCV 92 fL 80-100 Not Available [facility] [address] [place], [address], 12/24/2023 16:56:41 12/24/19 24 12/24/2023 CBC W/ DIFF (OUTR EACH) MCH 30 pg 28-33 Not Available [facility] [address] [place], [address], 12/24/2023 16:56:41 12/24/19 24 12/24/2023 CBC W/ DIFF (OUTR EACH) MCHC 33 g/dL 32-35 Not Available [facility] [address] [place], [address], 12/24/2023 16:56:41 12/24/19 24 12/24/2023 CBC W/ DIFF (OUTR EACH) RDW-CV 13 % 12-15 Not Available [facility] [address] [place], [address], 12/24/2023 16:56:41 12/24/19 24 12/24/2023 CBC W/ DIFF (OUTR EACH) platelets 324 rylee/L 150-40 0 Not Available [facility] [address] [place], [address], 12/24/2023 16:56:41 12/24/19 24 12/24/2023 CBC W/ DIFF (OUTR EACH) nucleated red blood cells 0.0 % <=0.0 Not Available [facility] [address] [place], [address], 12/24/2023 16:56:41 12/24/19 24 12/24/2023 CBC W/ DIFF (OUTR EACH) neutrophils 3.0 rylee/L 1.6-7. 2 Not Available [facility] [address] [place], [address], 12/24/2023 16:56:41 12/24/19 24 12/24/2023 CBC W/ DIFF (OUTR EACH) lymphocytes 0.9 rylee/L 1.1-4. 0 low Not Available [facility] [address] [place], [address], 12/24/2023 16:56:41 12/24/19 24 12/24/2023 CBC W/ DIFF (OUTR EACH) monocytes 0.7 rylee/L 0.0-0. 8 Not Available [facility] [address] [place], [address], 12/24/2023 16:56:41 12/24/19 24 12/24/2023 CBC W/ DIFF (OUTR EACH) eosinophils 0.5 rylee/L 0.0-0. 5 Not Available [facility] [address] [place], [address], 12/24/2023 16:56:41 12/24/19 24 12/24/2023 CBC W/ DIFF (OUTR EACH) basophils 0.1 rylee/L 0.0-0. 1 Not Available [facility] [address] [place], [address], 12/24/2023 16:56:41 12/24/19 24 12/24/2023 CBC W/ DIFF (OUTR EACH) immature granulocytes 0.02 rylee/L 0.00-0 .03 Not Available [facility] [address] [place], [address], 12/24/2023 16:56:41 12/24/19 24 12/24/2023 CBC W/ DIFF (OUTR EACH) immature granulocyte % 0.4 Not Available [facility] [address] [place], [address], 12/24/2023 16:56:41 12/24/19 24 12/24/2023 URINA LYSIS , COMPL ETE color YELLOW Not Available [facility] [address] [place], [address], 12/24/2023 17:29:57 12/24/19 24 12/24/2023 URINA LYSIS , COMPL ETE clarity CLEAR clear Not Available [facility] [address] [place], [address], 12/24/2023 17:29:57 12/24/19 24 12/24/2023 URINA LYSIS , COMPL ETE glucose NEGATI VE negati ve Not Available [facility] [address] [place], [address], 12/24/2023 17:29:57 12/24/19 24 12/24/2023 URINA LYSIS , COMPL ETE bilirubin NEGATI VE negati ve Not Available [facility] [address] [place], [address], 12/24/2023 17:29:57 12/24/19 24 12/24/2023 URINA LYSIS , COMPL ETE ketones NEGATI VE negati ve Not Available [facility] [address] [place], [address], 12/24/2023 17:29:57 12/24/19 24 12/24/2023 URINA LYSIS , COMPL ETE specific gravity, urine 1.012 1.005- 1.030 Not Available [facility] [address] [place], [address], 12/24/2023 17:29:57 12/24/19 24 12/24/2023 URINA LYSIS , COMPL ETE blood NEGATI VE negati ve Not Available [facility] [address] [place], [address], 12/24/2023 17:29:57 12/24/19 24 12/24/2023 URINA LYSIS , COMPL ETE pH 7.5 5.0-8. 0 Not Available [facility] [address] [place], [address], 12/24/2023 17:29:57 12/24/19 24 12/24/2023 URINA LYSIS , COMPL ETE protein NEGATI VE negati ve Not Available [facility] [address] [place], [address], 12/24/2023 17:29:57 12/24/19 24 12/24/2023 URINA LYSIS , COMPL ETE urobilinogen 0.2 <2.0 Not Available [facility] [address] [place], [address], 12/24/2023 17:29:57 12/24/19 24 12/24/2023 URINA LYSIS , COMPL ETE nitrites NEGATI VE negati ve Not Available [facility] [address] [place], [address], 12/24/2023 17:29:57 12/24/19 24 12/24/2023 URINA LYSIS , COMPL ETE leukocyte esterase 3+ negati ve abnormal Not Available [facility] [address] [place], [address], 12/24/2023 17:29:57 12/24/19 24 12/24/2023 URINA LYSIS , COMPL ETE RBC 0-2 0-2 Not Available [facility] [address] [place], [address], 12/24/2023 17:29:57 12/24/19 24 12/24/2023 URINA LYSIS , COMPL ETE WBC 51-100 0-5 abnormal Not Available [facility] [address] [place], [address], 12/24/2023 17:29:57 12/24/19 24 12/24/2023 URINA LYSIS , COMPL ETE epithelial, squamous 0-2 0-5 Epith elial cell count may inclu de squam ous, trans ition al and renal tubul ar epith elial cells Not Available [facility] [address] [place], [address], 12/24/2023 17:29:57 12/24/19 24 12/24/2023 URINA LYSIS , COMPL ETE casts, hyaline 0-2 0-2 Not Available [facility] [address] [place], [address], 12/24/2023 17:29:57 12/24/19 24 12/24/2023 URINA LYSIS , COMPL ETE bacteria NEGATI VE negati ve Not Available [facility] [address] [place], [address], 12/24/2023 17:29:57 12/24/19 24 12/24/2023 HEMOG LOBIN A1C hemoglobin A1C 5.6 % 4.0-5. 6 Not Available [facility] [address] [place], [address], 12/24/2023 19:17:47 12/24/19 24 12/24/2023 HEMOG LOBIN A1C estimated average glucose 114 mg/dL Not Available [facility] [address] [place], [address], 12/24/2023 19:17:47 12/24/19 24 12/24/2023 TYPE/ SCREE N ABO/Rh type A POS Not Available [facility] [address] [place], [address], 12/24/2023 21:04:24 12/24/19 24 12/24/2023 TYPE/ SCREE N RBC antibody screen NEG Not Available [facility] [address] [place], [address], 12/24/2023 21:04:24 12/24/19 24 12/24/2023 CULTU RE, URINE culture, urine abnormal ORDER NUMBE R: [id number] ORDER ED BY: SYDNI WHITNEY SOURC E: Urine , Clean Catch COLLE CTED: 12/24 08:12 ORGAN ISM: CITRO BACTE R FREUN DII COMPL EX (ORGA NISM ID: 1) >100, 000 CFU/m l Citro bacte r freun dii compl ex ORGAN ISM: ESCHE QUYNH A COLI (ORGA NISM ID: 2) >100, 000 CFU/m l Esche quynh a coli ----- ----- ORGAN ISM ID: 1 SENSI TIVIT Y ----- ----- For sever e disea se or pyelo nephr itis, avoid ceftr iaxon e due to poten tial for emerg ence of resis tance on treat ment. ANTIB IOTIC INTER PRETA TION UMU STATU S For sever e disea se or pyelo nephr itis, avoid ceftr iaxon e due to poten tial for emerg ence of resis tance on treat ment. Amoxi cilli n/K Clavu lanat e>16/ 8 R F Ampic illin >16 R F Ampic illin /Sulb actam <=8/4 R F Cefaz cara >16 R F Ceftr iaxon e <=1 S F Cipro floxa josette <=0.2 5 S F Genta micin <=4 S F Levof loxac in <=0.5 S F Nitro furan toin <=32 S F Tobra mycin <=4 S F Trime thopr im/Pond lfa <=2/3 8 S F ----- ----- ORGAN ISM ID: 2 SENSI TIVIT Y ----- ----- ANTIB IOTIC INTER PRETA TION UMU STATU S Amoxi cilli n/K Clavu lanat e<=8/ 4 S F Ampic illin <=8 S F Cefaz cara <=2 S F Genta micin <=4 S F Nitro furan toin <=32 S F Tobra mycin <=4 S F Trime thopr im/Pond lfa <=2/3 8 S F Not Available [facility] [address] [place], [address], 12/26/2023 22:53:49 01/01/20 24 01/01/2024 SODIU M AND POTAS SIUM sodium 132 mmol/ L 135-14 5 low Not Available [facility] [address] [place], [address], 01/01/2024 10:06:24 01/01/20 24 01/01/2024 SODIU M AND POTAS SIUM potassium 4.5 mmol/ L 3.5-5. 2 Not Available [facility] [address] [place], [address], 01/01/2024 10:06:24 01/15/20 24 01/15/2024 STAPH YLOCO CCUS AUREU S/MRS A BY YULISSA, NARES staphylococc us aureus/MRSA by YULISSA, nares abnormal ORDER NUMBE R: [id number] ORDER ED BY: SYDNI WHITNEY SOUR E: Nares COLLE CTED: 01/14 08:19 Staph yloco ccus aureu s: Detec estelle - A Methi cilli n Resis tant: Not Detec estelle - Not Available [facility] [address] [place], [address], 01/16/2024 00:29:41 04/11/20 24 04/11/2024 TYPE/ SCREE N ABO/Rh type A POS Not Available [facility] [address] [place], [address], 04/11/2024 09:11:58 04/11/20 24 04/11/2024 TYPE/ SCREE N RBC antibody screen NEG Not Available [facility] [address] [place], [address], 04/11/2024 09:11:58 04/21/20 24 04/21/2024 HEMOG LOBIN , POC hemoglobin 11.9 g/dL 12.1-1 5.0 low Not Available [facility] [address] [place], [address], 04/21/2024 06:36:29 04/21/20 24 04/21/2024 HEMOG LOBIN , POC performed by Dianelys Beasley Not Available [facility] [address] [place], [address], 04/21/2024 06:36:29 04/22/20 24 04/22/2024 ELECT ROLYT E PANEL (LYTE S) sodium 131 mmol/ L 135-14 5 low Not Available [facility] [address] [place], [address], 04/22/2024 05:05:50 04/22/20 24 04/22/2024 ELECT ROLYT E PANEL (LYTE S) potassium 4.4 mmol/ L 3.5-5. 2 Not Available [facility] [address] [place], [address], 04/22/2024 05:05:50 04/22/20 24 04/22/2024 ELECT ROLYT E PANEL (LYTE S) chloride 100 mmol/ L 98-111 Not Available [facility] [address] [place], [address], 04/22/2024 05:05:50 04/22/20 24 04/22/2024 ELECT ROLYT E PANEL (LYTE S) carbon dioxide -co2 22 mmol/ L 20-29 Not Available [facility] [address] [place], [address], 04/22/2024 05:05:50 04/22/20 24 04/22/2024 ELECT ROLYT E PANEL (LYTE S) anion gap 9 5-17 Not Available [facility] [address] [place], [address], 04/22/2024 05:05:50 04/22/20 24 04/22/2024 COMPL ETE BLOOD COUNT WBC 11.9 rylee/L 3.3-10 .7 high Not Available [facility] [address] [place], [address], 04/22/2024 06:53:11 04/22/20 24 04/22/2024 COMPL ETE BLOOD COUNT RBC 2.94 tril/ L 3.87-5 .08 low Not Available [facility] [address] [place], [address], 04/22/2024 06:53:11 04/22/20 24 04/22/2024 COMPL ETE BLOOD COUNT hemoglobin 9.2 g/dL 12.1-1 5.0 low Not Available [facility] [address] [place], [address], 04/22/2024 06:53:11 04/22/20 24 04/22/2024 COMPL ETE BLOOD COUNT hematocrit 27.5 % 35.4-4 4.2 low Not Available [facility] [address] [place], [address], 04/22/2024 06:53:11 04/22/20 24 04/22/2024 COMPL ETE BLOOD COUNT MCV 94 fL 80-100 Not Available [facility] [address] [place], [address], 04/22/2024 06:53:11 04/22/20 24 04/22/2024 COMPL ETE BLOOD COUNT MCH 31 pg 28-33 Not Available [facility] [address] [place], [address], 04/22/2024 06:53:11 04/22/20 24 04/22/2024 COMPL ETE BLOOD COUNT MCHC 34 g/dL 32-35 Not Available [facility] [address] [place], [address], 04/22/2024 06:53:11 04/22/20 24 04/22/2024 COMPL ETE BLOOD COUNT RDW-CV 14 % 12-15 Not Available [facility] [address] [place], [address], 04/22/2024 06:53:11 04/22/20 24 04/22/2024 COMPL ETE BLOOD COUNT platelets 241 rylee/L 150-40 0 Not Available [facility] [address] [place], [address], 04/22/2024 06:53:11 04/22/20 24 04/22/2024 COMPL ETE BLOOD COUNT nucleated red blood cells 0.0 % <=0.0 Not Available [facility] [address] [place], [address], 04/22/2024 06:53:11 05/26/20 24 05/26/2024 BODY FLUID CULTU RE bacterial culture, body fluid No Growth at 3 days Not Available [facility] [address], [place], [address], 05/29/2024 18:01:13 05/26/20 24 05/26/2024 BODY FLUID CULTU RE gram stain No PMNs, no organi sms seen Not Available [facility] [address] [place], [address], 05/29/2024 18:01:13 05/26/20 24 05/26/2024 BODY FLUID CULTU RE bacterial culture, body fluid No Growth at 4 days Not Available [facility] [address] [place], [address], 05/30/2024 16:53:40 05/26/20 24 05/26/2024 BODY FLUID CULTU RE gram stain No PMNs, no organi sms seen Not Available [facility] [address] [place], [address], 05/30/2024 16:53:40 05/26/20 24 05/26/2024 BODY FLUID CELL COUNT WITH DIFF IF INDIC ATED specimen source Synovi al, Hip, Right Not Available [facility] [address] [place], [address], 06/02/2024 12:37:30 05/26/20 24 05/26/2024 BODY FLUID CELL COUNT WITH DIFF IF INDIC ATED body fluid color [place] colorl ess abnormal Not Available [facility] [address] [place], [address], 06/02/2024 12:37:30 05/26/20 24 05/26/2024 BODY FLUID CELL COUNT WITH DIFF IF INDIC ATED body fluid clarity Hazy clear abnormal Not Available [facility] [address] [place], [address], 06/02/2024 12:37:30 05/26/20 24 05/26/2024 BODY FLUID CELL COUNT WITH DIFF IF INDIC ATED RBC automated (bf reportable) 05221 <=0 high Not Available [facility] [address] [place], [address], 06/02/2024 12:37:30 05/26/20 24 05/26/2024 BODY FLUID CELL COUNT WITH DIFF IF INDIC ATED tnc automated (bf reportable) 571 /mcL <=200 high Not Available [facility] [address] [place], [address], 06/02/2024 12:37:30 05/26/20 24 05/26/2024 BODY FLUID CELL COUNT WITH DIFF IF INDIC ATED specimen source Synovi al, Hip, Right Not Available [facility] [address] [place], [address], 06/02/2024 12:37:32 05/26/20 24 05/26/2024 BODY FLUID CELL COUNT WITH DIFF IF INDIC ATED body fluid color [place] colorl ess abnormal Not Available [facility] [address] [place], [address], 06/02/2024 12:37:32 05/26/20 24 05/26/2024 BODY FLUID CELL COUNT WITH DIFF IF INDIC ATED body fluid clarity Hazy clear abnormal Not Available [facility] [address] [place], [address], 06/02/2024 12:37:32 05/26/20 24 05/26/2024 BODY FLUID CELL COUNT WITH DIFF IF INDIC ATED RBC automated (bf reportable) [address] <=0 high Not Available [facility] [address] [place], [address], 06/02/2024 12:37:32 05/26/20 24 05/26/2024 BODY FLUID CELL COUNT WITH DIFF IF INDIC ATED tnc automated (bf reportable) 571 /mcL <=200 high Not Available [facility] [address] [place], [address], 06/02/2024 12:37:32 05/26/20 24 05/26/2024 BODY FLUID MAN DIFF KEYBO CATIE neutrophils/ 100 leuk by man diff (bf) 23 % Not Available [facility] [address] [place], [address], 06/02/2024 12:37:32 05/26/20 24 05/26/2024 BODY FLUID MAN DIFF KEYBO CATIE lymphocytes/ 100 leuk by man diff bf 61 % Not Available [facility] [address] [place], [address], 06/02/2024 12:37:32 05/26/20 24 05/26/2024 BODY FLUID MAN DIFF KEYBO CATIE monocytes/ma crophages/10 0 leuk by man diff bf 13 % Not Available [facility] [address] [place], [address], 06/02/2024 12:37:32 05/26/20 24 05/26/2024 BODY FLUID MAN DIFF KEYBO CATIE eosinophils/ 100 leuk by manual count (bf) 3 % Not Available [facility] [address] [place], [address], 06/02/2024 12:37:32 05/26/20 24 05/26/2024 BODY FLUID MAN DIFF KEYBO CATIE total cells counted (eladio) 100 Not Available [facility] [address] [place], [address], 06/02/2024 12:37:32 05/26/20 24 05/26/2024 BODY FLUID CULTU RE gram stain No PMNs, no organi sms seen Not Available [facility] [address], [place], [address], 06/02/2024 13:06:57 05/26/20 24 05/26/2024 WOUND CULTU RE gram stain See Note Few PMNs No organ ism seen Not Available [facility] [address] [place], [place], [address], 06/02/2024 13:14:29 05/26/20 24 05/26/2024 BODY FLUID CULTU RE bacterial culture, body fluid No growth at 1 day Not Available [facility] [address] [place], [place], [address], 06/02/2024 13:27:10 05/26/20 24 05/26/2024 BODY FLUID CULTU RE gram stain No PMNs, no organi sms seen Not Available [facility] [address] [place], [address], 06/02/2024 13:27:10 05/26/20 24 05/26/2024 WOUND CULTU RE bacterial culture, wound No growth at 1 day Not Available [facility] [address] [place], [address], 06/02/2024 13:40:12 05/26/20 24 05/26/2024 WOUND CULTU RE gram stain See Note Few PMNs No organ ism seen Not Available [facility] [address] [place], [place], [address], 06/02/2024 13:40:12 05/26/20 24 05/26/2024 BODY FLUID CULTU RE bacterial culture, body fluid No growth at 2 days Not Available [facility] [address] [place], [address], 06/02/2024 13:54:50 05/26/20 24 05/26/2024 BODY FLUID CULTU RE gram stain No PMNs, no organi sms seen Not Available [facility] [address] [place], [address], 06/02/2024 13:54:50 05/26/20 24 05/26/2024 WOUND CULTU RE bacterial culture, wound No growth at 2 days Not Available [facility] [address] [place], [address], 06/02/2024 14:08:17 05/26/20 24 05/26/2024 WOUND CULTU RE gram stain See Note Few PMNs No organ ism seen Not Available [facility] [address] [place], [address], 06/02/2024 14:08:17 09/11/20 23 09/11/2023 pelvi s No observ ation record ed. INTERFACE [facility] [id number] [place], [address], 09/11/2023 07:52:35 04/21/20 24 04/21/2024 hip right 1 view Portab le right hip: Single AP projec tion of the right hip was obtain ed in the OR. Right- sided total hip arthro plasty in positi on. Final result Fluoro - 17 second s [address] [facility] [address] [facility] [id number] [facility] [address], [place], [address], 04/21/2024 22:13:01 04/21/20 24 04/21/2024 hip right 2-3 views with pelvi s Right hip: Histor y is status post right total hip arthro plasty . 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 Single AP projec tion of the pelvis was also obtain ed which shows no eviden ce of fractu re. Final result [address] [facility] [id number] [facility] [address], [place], [address], 04/21/2024 22:13:01 05/06/20 24 05/06/2024 pelvi s No observ ation record ed. INTERFACE [facility] [address] [place], [address], 05/06/2024 13:12:13 Result Notes None recorded. Problems Name Problem SNOMED Code Status Onset Date Resolution Date Notes Provider Name and Address Organization Details Recorded Time Osteoarthr itis of right hip joint [id number] 07 Active 2022 [place] [address] [place], [place], [address] , Formerly [facility] 3 14:45:49 Osteoarthr itis of hip 646760850 Active 2022 [place] [address] [place], [address] , Formerly [facility] 3 14:48:39 Pain in right hip joint 4357521796692 02 Active [facility]22 [facility] 3 07:39:52 Dehiscence of surgical wound 02594459 Active 2023 EDEN VILLANUEVA PA-C [address] [place], [address] , Formerly [facility] 4 08:48:34 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 Procedures Surgical History Date Name Laterality Status Provider Name and Address Organization Details Recorded Time 4 TOTAL HIP ARTHROPLASTY, ANTERIOR APPROACH (SURG) completed Birdie Antonio [facility] 05/27/2024 12:50:35 4 TOTAL HIP ARTHROPLASTY, ANTERIOR APPROACH (SURG) completed Birdie Antonio [facility] 05/30/2024 07:30:39 4 Hip Surgery completed Lizzy Santacruz [facility] 04/21/2024 21:54:13 4 HMA- U/S Hip Injection completed EDEN VILLANUEVA PA-C [address] [place], [address], Formerly [facility] 01/31/2024 19:59:29 3 HMA- U/S [place] [address] [place], [address], Formerly [facility] 10/09/2023 09:44:06 Imaging Results Imaging Date Name Status LastModified by Organiz ation Details LastModified Time 09/11/2023 pelvis completed INTERFACE [facility] [address] [place], [address], 09/11/2023 07:52:35 04/21/2024 hip right 1 view completed [address] [facility] [address] [place] [address] [address], [address], 04/21/2024 22:13:01 04/21/2024 hip right 2-3 views with pelvis completed [address] [facility]) [address] [place] [address] [address], [place], [address], 04/21/2024 22:13:01 05/06/2024 pelvis completed INTERFACE [facility] [address] [place], [address], 05/06/2024 13:12:13 Procedure Notes None recorded. Medical Equipment None Reported. Allergies Allergen ID Allergen Name Allergen Category Reaction Reaction Severity Criticality Documentation Date Start Date Code Code System Note Provider Name and Address Organization Details Recorded Time 630731 Product containin g penicilli n (product) medicatio n hives itching Not available Not available Not available 06/22/2023 65287 8001 SNOMED Not Available Health Note 3 16:08:17 578333 codeine medicatio n hives rash Not available Not available Not available 06/22/2023 2670 RxNorm Not Available Health Note 3 16:08:17 557656 Motrin medicatio n diarrhea nausea Not available Not available Not available 06/22/2023 51694 8 RxNorm Not Available Health Note 3 16:08:17 705209 tramadol medicatio n Not available Not available Not available 05/06/2024 34644 RxNorm EDEN VILLANUEVA PA-C [address] [facility] [place], [address] , [facility] 4 13:40:01 Medications Name Sig Start Date Stop Date Status Note LastModified by Organization Details LastModified Time atorvasta tin 40 mg tablet TAKE 1 TABLET BY MOUTH EVERYDAY AT BEDTIME active Not Available Not Available No t Available buspirone 5 mg tablet TAKE 1 TABLET BY MOUTH THREE TIMES A DAY active Not Available Not Available No t Available prednison e 10 mg tablet TAKE 4 TABS BY MOUTH ONCE DAILY X3 DAYS, 3 TABS DAILY X3 DAYS, 2 TABS X3 DAYS, THEN 1 TAB X3 DAYS 05/06 completed HN: Patient reports no longer taking Not Available Not Available Not Available doxycycli ne hyclate 100 mg capsule TAKE 1 CAPSULE BY MOUTH TWICE A DAY 2024 active Not Available Not Available Not Avai lable ipratropi um 0.5 mg-albute rol 3 mg (2.5 mg base)/3 mL nebulizat ion soln INHALE 3 ML INTO THE LUNGS 3 TIMES DAILY. active Not Available Not Available No t Available tizanidin e 2 mg tablet 06/17 completed HN: Patient reports no longer taking Not Available Not Available Not Available clindamyc in HCl 300 mg capsule TAKE 1 CAPSULE BY MOUTH THREE TIMES A DAY WITH FOOD NEEDED 06/17 completed HN: Patient reports no longer taking Not Available Not Available Not Available azithromy josette 250 mg tablet TAKE 2 TABLETS BY MOUTH TODAY, THEN TAKE 1 TABLET DAILY FOR 4 DAYS DIRECTED 01/23 completed HN: Patient reports no longer taking Not Available Not Available Not Available hydrocodo ne 5 mg-acetam inophen 325 mg tablet Take 1 tablet every 4-6 hours by oral route as directed for moderate to severe pain. 2023 active Not Available Not Available Not Avai lable lisinopri l 20 mg tablet TAKE 1 TABLET BY MOUTH EVERY DAY active Not Available Not Available No t Available prednison e 20 mg tablet TAKE 1 TABLET BY MOUTH EVERY DAY FOR 5 DAYS 10/09 completed HN: Patient reports no longer taking Not Available Not Available Not Available alendrona te 70 mg tablet TAKE 1 TABLET BY MOUTH ONE TIME PER WEEK active Not Available Not Available No t Available clopidogr el 75 mg tablet TAKE 1 TABLET BY MOUTH EVERY DAY 10/09 completed HN: Patient reports no longer taking Not Available Not Available Not Available ciproflox acin 500 mg tablet TAKE 1 TABLET BY MOUTH EVERY 12 HOURS FOR 3 DAYS 01/23 completed HN: Patient reports no longer taking Not Available Not Available Not Available tramadol 50 mg tablet 06/17 completed HN: Patient reports no longer taking Not Available Not Available Not Available ketorolac 0.5 % eye drops USE 1 DROP TO OPERATIV E EYE THREE TIMES A DAY START THREE DAYS PRIOR TO SURGERY 10/09 completed HN: Patient reports no longer taking Not Available Not Available Not Available Mobic 15 mg tablet Take 1 tablet every day by oral route for 14 days. 2023 active Not Available Not Available Not Avai lable prednisol one acetate 1 % eye drops,moon pension USE 1 DROP TO OPERATIV E EYE FOUR TIMES A DAY START AFTER SURGERY ONLY 10/09 completed HN: Patient reports no longer taking Not Available Not Available Not Available benzonata te 100 mg capsule TAKE 1 CAPSULE BY MOUTH EVERY 8 HOURS NEEDED FOR COUGH 01/23 completed HN: Patient reports no longer taking Not Available Not Available Not Available triamcino lone acetonide 40 mg/mL suspensio n for injection Take 2 mL by injectio n route. 05/06 completed HN: Patient reports no longer taking Not Available Not Available Not Available ferrous sulfate 325 mg (65 mg iron) tablet TAKE 1 TABLET BY MOUTH EVERY DAY active Not Available Not Available No t Available lisinopri l 10 mg tablet TAKE 1 TABLET BY MOUTH EVERY DAY 01/23 completed HN: Patient reports no longer taking Not Available Not Available Not Available omeprazol e 20 mg capsule,d elayed release TAKE 1 CAPSULE BY MOUTH EVERY DAY BEFORE BREAKFAS T active Not Available Not Available No t Available mupirocin 2 % topical ointment APPLY TO AFFECTED AREA TWICE A DAY 06/17 completed HN: Patient reports no longer taking Not Available Not Available Not Available albuterol sulfate HFA 90 mcg/actua tion aerosol inhaler INHALE 2 PUFFS INTO THE LUNGS EVERY 4 HOURS NEEDED FOR SHORTNES S OF BREATH active Not Available Not Available No t Available colchicin e 0.6 mg tablet TAKE 1 TABLET BY MOUTH EVERY DAY 10/09 completed HN: Patient reports no longer taking Not Available Not Available Not Available oxybutyni n chloride 5 mg tablet TAKE 1 TABLET BY MOUTH TWICE A DAY active Not Available Not Available No t Available moxifloxa josette 0.5 % eye drops USE 1 DROP IN OPERATIV E EYE THREE TIMES DAILY START 3 DAYS PRIOR TO SURGERY 01/23 completed HN: Patient reports no longer taking HN: Patient reports no longer taking Not Available Not Available Not Available bupivacai ne (PF) 0.25 % (2.5 mg/mL) injection solution Take 4 mL by injectio n route. 01/23 completed HN: Patient reports no longer taking Not Available Not Available Not Available bupivacai ne (PF) 0.5 % (5 mg/mL) injection solution Take 4 mL by injectio n route. 05/06 completed HN: Patient reports no longer taking Not Available Not Available Not Available metoprolo l tartrate 25 mg tablet TAKE 1 TABLET BY MOUTH TWICE A DAY active Not Available Not Available No t Available nitrofura ntoin monohydra te/macroc rystals 100 mg capsule TAKE 1 CAPSULE BY MOUTH EVERY 12 HOURS 01/23 completed HN: Patient reports no longer taking Not Available Not Available Not Available Mucinex DM 30 mg-600 mg tablet,ex tended release 12 hr 600mg/30 mg 1/day active Not Available Not Available No t Available Vitamin D3 2000iu 1/day active Not Available Not Available No t Available sodium chloride 1,000 mg soluble tablet TAKE 1 TABLET BY MOUTH TWICE A DAY active Not Available Not Available No t Available varenicli ne tartrate 1 mg tablet TAKE 1 TABLET BY MOUTH TWICE A DAY 06/17 completed HN: Patient reports no longer taking Not Available Not Available Not Available Pulmicort Flexhaler 180 mcg/actua tion breath activated INHALE 1 PUFF INTO THE LUNGS TWICE DAILY FOR 30 DAYS. 01/23 completed HN: Patient reports no longer taking Not Available Not Available Not Available budesonid e-formote rol HFA 160 mcg-4.5 mcg/actua tion aerosol inhaler INHALE 2 PUFFS BY MOUTH TWICE A DAY active Not Available Not Available No t Available Eliquis 5 mg tablet TAKE 1 TABLET BY MOUTH EVERY 12 HOURS active Not Available Not Available No t Available Spiriva Respimat 2.5 mcg/actua tion solution for inhalatio n INHALE 2 PUFFS INTO THE LUNGS ONCE DAILY. 10/09 completed HN: Patient reports no longer taking Not Available Not Available Not Available Stiolto Respimat 2.5 mcg-2.5 mcg/actua tion solution for inhalatio n INHALE 2 PUFFS INTO THE LUNGS ONCE DAILY. 06/17 completed HN: Patient reports no longer taking Not Available Not Available Not Available COVID-19 At-Home Test kit USE DIRECTED active Not Available Not Available No t Available Vitals Date Recorded Body height Provider Name an d Address Organization Details Last Updated DateTime 10/09/2023 160.02 cm [facility] 10/09/2023 09:30:49 Date Recorded Body height Provider Name an d Address Organization Details Last Updated DateTime 01/24/2024 160.02 cm [facility] 01/24/2024 13:42:37 Date Recorded Body height Provider Name an d Address Organization Details Last Updated DateTime 05/06/2024 160.02 cm [facility] 05/06/2024 13:05:42 Date Recorded Body height Provider Name an d Address Organization Details Last Updated DateTime 05/22/2024 160.02 cm Lynn Walsh [facility] 05/22/2024 08:32:10 Date Recorded Body height Provider Name an d Address Organization Details Last Updated DateTime 06/17/2024 160.02 cm Lynn Walsh [facility] 06/17/2024 10:33:11 Social History Question Answer Notes LastModified by Organizat ion Details LastModified Time Tobacco Smoking Status Former Smoker Not Available Health Note 06/22/2023 16:08:18 What Is Your Level Of Alcohol Consumption? None [email or web address] Information not available 06/22/2023 Are You Blind Or Do You Have Difficulty Seeing? No [email or web address] Information not available 06/22/2023 Is Blood Transfusion Acceptable In An Emergency? Yes [email or web address] Information not available 06/22/2023 In The 14 Days Before Symptom Onset, Have You Had Close Contact With A Laboratory-confir med COVID-19 While That Case Was Ill? No [email or web address] Information not available 05/22/2024 Are You Deaf Or Do You Have Serious Difficulty Hearing? No [email or web address] Information not available 06/22/2023 Do You Or Have You Ever Used E-cigarettes Or Vape? Never Used Electronic Cigarettes [email or web address] Information not available 06/22/2023 Which Of Your Hands Is Dominant? Right [email or web address] Information not available 06/22/2023 Was Your Injury Accident Related? No [email or web address] Information no t available 06/22/2023 If You Smoked In The Past When Did You Quit? 1-5 Years Since Last Cigarette [email or web address] Information not available 06/22/2023 Do You Have A Medical Power Of Laboratory [place]? Yes [email or web address] Information not available 06/22/2023 What Was The Date Of Your Most Recent Tobacco Screening? 06/26/2023 [email or web address] Information not available 06/22/2023 At What Age Did You Start Smoking Tobacco? 15 [email or web address] Information not available 06/22/2023 Do You Or Have You Ever Used Smokeless Tobacco? Never Used Smokeless Tobacco [email or web address] Information not available 06/22/2023 Do You Use Any Illicit Or Recreational Drugs? No [email or web address] Information not available 06/22/2023 How Many Years Have You Smoked Tobacco? 50 [email or web address] Information not available 06/22/2023 Sex: Unknown Functional Status Question Answer Note LastModified by Organization D etails LastModified Time Do you have difficulty walking or climbing stairs? No [email or web address] Information not available 06/22/2023 Do you have difficulty doing errands alone? No [email or web address] Information not available 06/22/2023 Are you able to care for yourself? Yes [email or web address] Information n ot available 06/22/2023 Mental Status Question Answer Note LastModified by Organization D etails LastModified Time Do you have difficulty concentrating, remembering or making decisions? No [email or web address] Information no t available 06/22/2023 Family History Relationship Description Onset Age of this Age Resolved Age Notes LastModified by Organization Details LastModified Time Father Arthritis [email or web address] Not available 06/22/2023 16:08:16 Father Family history of malignant neoplasm [email or web address] Not available 2022 16:08:16 Father Hypertensive disorder [email or web address] Not available 2022 16:08:16 Brother Hypertensive disorder [email or web address] Not available 2022 16:08:16 Medical History Condition Response Coronary Artery Disease N Gout N Defect N Hernia N Emphysema Y Genetic Disorder/Disease N Depression N COPD Y Pacemaker N Anesthesia Problems N Reflux N Alcoholism Y Arthritis N Heart Problems/Disease N Gerd/Heartburn N Cancer N Chemical Dependency N Epilepsy/Seizure Disorder N Blood Clot - DVT N High Cholesterol N Liver Disease N Rheumatoid Arthritis N Fibromyalgia N Kidney Disease N Cancer Treatment N Anxiety N Hepatitis A N Thyroid Problems N Eating Disorder N Hepatitis C N Anemia N Multiple Sclerosis N Ulcers N Diabetes N Bleeding Disorder N Metal in Body N Tuberculosis N AIDS/HIV N Asthma N Hepatitis B N Lupus N Connective Tissue Disorder N Stroke - Cerebrovascular Accident N Peripheral Vascular Disease N Hearing Aid N Neuropathy N Loss of balance or falls N Pulmonary Embolism N Bruise easily N Hypertension Y Osteoporosis Y Gynecological HistoryNo gynecological history recorded. Obstetrics History GPAL:G 0 P 0 0 0 0 Immunizations Vaccine Type Date Status Note Provider Nam e and Address Organization Details Recorded Time COVID-19, mRNA, LNP-S, PF, 100 mcg/0.5mL dose or 50 mcg/0.25mL dose 01/12/2021 completed Not Available Health Note 06/22/2023 16:08:22 COVID-19, mRNA, LNP-S, PF, 100 mcg/0.5mL dose or 50 mcg/0.25mL dose 07/01/2021 completed Not Available Health Note 06/22/2023 16:08:22 Past Encounters Encounter ID Performer Location Encounter Start Date Encounter Closed Date Diagnosis/Indication Diagnosis SNOMED-CT Code Diagnosis ICD10 Code Diagnosis Note [id number] Nati Whitney MD [facility] [address] [place] [address] 06/26/2023 13:30:21 06/26/2023 16:15:41 Osteoarthritis of right hip joint 8187742796 14640 M16.11 Hip osteoarthr itisI had discussion with the patient today regarding their radiograph ic and clinical findings of arthritis of the hip. We discussed the diagnosis of arthritis including the terminal manager progressiv e nature of the condition. Non-surgic al treatment options were detailed including therapy, NSAIDS, activity modificati on, the use of an assist device and judicious use of injections . We also discussed that as the condition progresses and/or non-operat edenilson treatments fail surgical options may include hip replacemen t surgery. At this time a step-platt conservati ve approach was recommende d- Continue activity modificati on- Home/PT exercise program- NSAIDs as needed for pain control unless medically contraindi cated [id number] Nati Whitney MD [facility] [address] [place] [address] 09/11/2023 07:36:29 09/11/2023 08:57:46 Pain in right hip joint [id number] 54783 M25.551 Followsup PRN for shots Discussed surgery [id number] Nati Whitney MD [facility] [address] [place] [address] 10/09/2023 09:27:51 10/09/2023 10:14:30 Osteoarthritis of hip 217935631 M16.11 Hip osteoarthr itis - failing nonoperati ve management The diagnosis of osteoarthr itis was discussed in detail with the patient today. Treatment options were discussed both operative and non-operat edenilson. Non-surgic al measures including activity modificati on, NSAIDS, injections , home therapy or outpatient therapy and the use of an assist device were discussed. The patient has attempted these in the past 6 months without improvemen t. At this time the patient is dissatisfi ed with their functional status and is seeking a more terminal manager solution to their pain, dysfunctio n and deformity. Exam demonstrat es joint crepitus, deformity, decreased range of motion and films confirm end stage arthritis of the joint with complete collapse of the joint as reviewed by myself.At this time the patient is dissatisfi ed with their functional status and is seeking a more fdc solution to their pain, dysfunctio n and deformity. We therefore discussed their surgical options including hip arthroplas ty. We discussed the associated risks of the procedure, including medical or surgical complicati on such as heart attack, stroke, blood clot, infection, , damage to artery to nerve resulting in paralysis or loss of limb, persistent pain, fracture, leg length discrepanc y, dislocatio n, mechanical failure of the prosthesis , or need for revision surgery. The patient has elected to proceed with surgery. [id number] EDEN VILLANUEVA PA-C [facility] [address] [place] [address] 01/24/2024 13:15:44 02/01/2024 12:38:02 Osteoarthritis of right hip joint [id number] 74660 M16.11 Hip Arthritis Clinical and radiograph ic findings were reviewed with the patient. We reviewed the diagnosis and treatment options for arthritis today. - Cortisone injection was provided for the hip - NSAIDS unless medically contraindi cated - Activity modificati on as needed - Followup in 6-12 weeks [id number] EDEN VILLANUEVA PA-C [facility] [address] [place] [address] 05/06/2024 12:33:17 05/06/2024 13:45:35 Pain in right hip joint [id number] 90031 M25.551 Plan First post operative visit following hip arthroplas ty iesha howard Reviewed pain management regimen and goal of tapering pain medication s in the subsequent weeks Continue DVT prophylaxi s for total of 4 weeks after surgery-Ho ld Eliquis another two weeks to allow for NSAID and Aspirin use Transition to home exercises program Discussed incision care and importance of icing and elevation to control edema Follow up 6 weeksseen with [facility] [id number] EDEN VILLANUEVA PA-C [facility] [address] [place] [address] 05/22/2024 08:23:48 05/22/2024 08:55:19 Dehiscence of surgical wound 71283019 T81.30XA Superficia l wound dehiscence . Plan for Closure in OR next week, aspiration to rule out infection Seen with [facility] [id number] EDEN VILLANUEVA PA-C [facility] [address] [place] [address] 06/17/2024 10:13:06 06/17/2024 10:48:30 Postoperative pain 995069281 G89.18 incision healed, sutures removed Follow up yearlyseen with [facility] Health Concerns Section Related Observation LastModified by Organization Detai ls LastModified Time None Recorded Concern Status LastModified by Organization Details LastModified Time None Recorded Advance Directives Directive None Recorded Payers Encounter Date Sequence Insurance Name Policy Number Policy Sab[place] Covered Member ID Sabillon Member ID Guarantor Name 10/09/2023 1 [employer] - MEDICARE CHOICE (MEDICARE REPLACEMENT PPO) [id number] Annemarie Hutson [id number] Annemarie Hutson 10/09/2023 2 () Meenu Hutson [id number] Annemarie Leyvakerson 01/24/2024 1 [employer] - MEDICARE CHOICE (MEDICARE REPLACEMENT PPO) [id number] Annemarie Hutson [id number] Annemarie Kendallson 01/24/2024 2 ( - INDEMNITY) Annemarie Hutson [id number] Annemarie Kendallson 05/06/2024 1 [employer] - MEDICARE CHOICE (MEDICARE REPLACEMENT PPO) [id number] Annemarie Hutson [id number] Annemarie Caryl 05/06/2024 2 () Meenu Hutson [id number] Annemarie Leyvakerson 05/22/2024 1 [employer] - MEDICARE CHOICE (MEDICARE REPLACEMENT PPO) [id number] Annemarie Hutson [id number] Annemarie Caryl 05/22/2024 2 ( - INDEMNITY) Annemarie Leyvakerson [id number] Annemarie Leyvakerson 06/17/2024 1 [facility] - MEDICARE CHOICE (MEDICARE REPLACEMENT PPO) [id number] Annemarie Leyvakerson [id number] Annemarie Leyvakerson 06/17/2024 2 [employer] ( - INDEMNITY) Annemarie Colvin Caryl [id number] Annemarie Leyvakerson Notes Date Note Type Note Provider Name and Address Organization Details Recorded Time 3 text/html Patient presents with {{left right* bilateral} } hip pain. The pain is aching and worse with activity and can be moderate to severe at times. The patient reports stiffness and soreness that has been noticeable for the past several months which interferes with daily activities, and reports difficulty walking a block or more without pain. Mechanical symptoms are present. No associated numbness, tingling, night pain, or paresthesia. To date patient has undergone the following treatments for greater than 6 weeks without symptom relief: NSAIDS: {{Yes* No}} HEP/PT: {{Yes* No}} Cortisone injections: {{Yes* No}} Annemarie Ortiz a 73 year oldFemalepresenting for care. Reason for visit: pain in relation [place] [address] [place], [address], Formerly [facility] 10/09/2023 09:44:36 4 text/html Annemarie Ortiz 73 year oldFemalepresenting for care. Patient presents with {{left right* bilateral} } hip pain. The pain is aching and worse with activity and can be moderate to severe at times. The patient reports stiffness and soreness that has been noticeable for the past several months which interferes with daily activities, and reports difficulty walking a block or more without pain. Mechanical symptoms are present. No associated numbness, tingling, night pain, or paresthesia. To date patient has undergone the following treatments for greater than 6 weeks without symptom relief: NSAIDS: {{Yes* No}} HEP/PT: {{Yes* No}} Cortisone injections: {{Yes* No}} Annemarie Ortiz a 73 year oldFemalepresenting for care. Reason for visit: pain in relation to the hip or pelvis EDEN VILLANUEVA PA-C [address] [place], [address], [facility]ly [facility] 01/31/2024 20:00:00 4 text/html Annemarie Ortiz 74 year oldFemalepresenting for care. Reason for visit: in relation to the hip or pelvisPatient follows up two weeks after right anterior total hip replacement. Progressing appropriately. Denies any fevers or chills. Taking medication as prescribed. Engaging in home exercise. Walking with a cane. Reports anterior tightness, worse with prolonged sitting or prolonged activity. EDEN VILLANUEVA PA-C [address] [place], [address], [facility] 05/08/2024 10:38:42 4 text/html Annemarie Ortiz 74 year oldFemalepresenting for care. Reason for visit: Incision in question in relation to the hip or pelvisPatient presents 4 weeks s/p right anterior total hip arthroplasty. Has noted scabbing and widening of wound at proximal portion for the past week. Notes it has been widening daily. No fevers, chills, purulence.Has been doing twice daily treatments with iodine and 50% dilute H2O2 for the past 3 days. EDEN VILLANUEVA PA-C [address] [place], [address], Formerly [facility] 05/23/2024 08:23:41 4 text/html Annemarie Ortiz 74 year oldFemalepresenting for care. Reason for visit: Incision in question in relation to the hip or pelvis Presents for incision check 3 weeks after hip aspiration, I&D superficial wound dehiscence. Denies significant drainage, denies fevers or chills. hip otherwise rehabbing well. EDEN VILLANUEVA PA-C [address] [place], [address], Formerly [facility] 06/25/2024 21:07:12 OBGyn Episode No OBEpisode recorded.
--- OUTSIDE RECORDS SUMMARY | 2025-02-10 11:29 | XMS_ITS ---
Author Organization [facility] [place] Address [address] [place] [address] Care Team Providers Care Block Cleaner Name Role Phone Mya Winchester Primary Care Provider Minh Tovar [phone] REASON FOR VISIT test results Encounters Encounter Location Date Provider Diagnosis [facility] [address] [facility] [address] [place] [address] 12/24/2024 Minh Holm Plan Of Treatment Next Appt Details Provider Name:Minh Xie i, 04/14/2025 12:50:00 PM, [address] [place], [address], Progress Notes * Annemarie ORTEGADOB:[birth year] (74 yo F)Acc No.[id number]:12/24/2024 Patient: Francisco Annemarie RUBIO :1950 A ge:74 Y S ex:Female [address] [place] [address] * true * Date: Generated for Printi ng/Faxing/eTransmitting on: 0 02/10/2025 12:28 PM EDT
--- OUTSIDE RECORDS SUMMARY | 2025-02-10 11:29 | XMS_ITS | Clinical Summary ---
Author Organization [employer] ([facility] 05/25/2024) ([employer]) Address [address] [place] [address] Care Team Providers Care Glove Wrapper Name Role Phone Kareen Winchester MD Primary Care Provider + Allergies Active Allergy Reactions Criticality Noted Date Comments Codeine Anaphylaxis/Shock High 08/18/2010 Ibuprofen Micronized GI Distress 09/08/2010 Penicillin G Anaphylaxis/Shock High 08/18/2010 Had reaction > 10 yrs ago, not sure if she has ever had augmentin, amoxicillin, keflex, or ancef Medications Medication Sig Dispensed Refills Start Date End Date Status [place]-3 Fatty Acids 1000 MG PO Cap take [...] 1 Tablet by mouth once daily. 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,Status post hip surgery take [...] Advanced care planning/counseling discussion Overview (07/01/2021): Yumiko [phone]=daughter Central retinal artery occlusion 05/18/2018 Dyslipidemia 05/18/2018 [...] injection , quadrivalent (Preservative-Free) 10/11/2013 Pneumococcal Conjugate (PCV13)(Iictlgr08) 07/20/2015 Pneumococcal Polysaccharide (PPSV23)(Pneumovax) 07/17/2016 RSV, Recombinant, Protein Pond bunit RsvpreF, Adj Recon, 0.5 mL, PF 07/11/2023 TDaP (Adol/Adult) 10/11/2013 Zoster (Zostavax)(shingles) Vaccine, Live 05/24/2015 influenza vaccine (FLUAD PATY DRIVALENT) injection patient age 65 years and older 08/15/2023 Family History Medical History Relation Name Comments Sleep Apnea Brother 1 Hypertension Brother 2 Sleep Apnea Brother 2 Cancer - Other Father kidney Colitis Father Hypertension Father Diverticulitis Mother Heart Mother Cancer - Breast Niece Osteoporosis Other Alcoholism Sister 1 Tanna Alcoholism Sister 2 Leslie Cirrhosis Sister 2 Leslie Hypertension Sister 2 Leslie 1 sister 6 2 -cirhossis Other Neg Hx Relation Name Status Comments Brother 1 Alive Brother 2 Father intestinal Grandfather Grandmother Mother 88 Niece Other Sister 1 Tanna Alive Sister 2 Leslie Social History Tobacco Use Types Packs/Day Years Used Date Smoking Tobacco: Former Cigarettes 1 50 1 969 - 2019 Smokeless Tobacco: Former Quit: 2019 Tobacco Cessation:Counseling Given: Not Answered Comments:Hx 49 years 11/06 to 1 ppd. Multiple attempts to quit [...] 04/28/2024 12:32 PM EDT Plan of Treatment Health Maintenance Due Date Last Done Comments VACCINE: INFLUENZA (#1) 2024 08/15/20 23, 06/26/2022, 11/05/2021, Additional history exists SCREENING: DEPRESSION 07/03/2024 07/03/2023 , 07/03/2022, 03/06/2022, Additional history exists SCREENING: FALL RISK 07/03/2024 07/03/2023, 07/03/2022, 03/06/2022, Additional history exists VACCINE: COVID-19 ( season) 2024 08/15/2023, 09/17/2022, 03/05/2022, Additional history exists VACCINE: TETANUS,DIPHTHERIA BOOSTER (TD BOOSTER) EVERY 10 YEARS 11/24/2024 11/24/2014, 10/11/2013 CA SCREENING: CT LUNG 11/27/2024 11/27/2023 , 10/23/2022, 08/09/2022, Additional history exists HEALTH MAINTENANCE EXAM (ADULT) 12/17/2024 12/17/2023, 07/03/2023, 07/03/2023, Additional history exists FIT-DNA 07/17/2026 07/17/2023, 07/09/2023 SCREENING: HEPATITIS C Completed 11/24/2014 Colonoscopy Discontinued 08/27/2015 VACCINE: ZOSTER (ZOSTAVAX) Completed 08/27, 05/24/2015, 11/24/2014 (Declined) Pneumococcal Vaccine: 65+ Years Addressed 07/17/2016, 06/05/2016 (Declined), 08/27/2015, Additional history exists Overridden with the intention of not completing the topic COPD ACTION PLAN Discontinued 08/20/2019 Mammogram Discontinued 08/13/2023, 07/07, 07/13/2021, Additional history exists SCREENING: OSTEOPOROSIS Completed 08/13/20, 07/27/2022, 07/06/2020, Additional history exists ZZZCOPD SPIROMETRY Discontinued 03/18/2024, 0 2024, 01/18/2024, Additional history exists Advance Care Planning Documentation Discontinued VACCINE: HEPATITIS A Discontinued VACCINE: ZOSTER (SHINGRIX) Discontinued Vaccines: HIB Aged Out No longer elig ible based on patient's age to complete this topic Vaccines: IPV Aged Out No longer elig ible based on patient's age to complete this topic Vaccines: Meningococcal Aged Out No l onger eligible based on patient's age to complete this topic Vaccines: Rotavirus Aged Out No longe r eligible based on patient's age to complete this topic Medical Devices Implanted Type Area Blending Tank Helper Device Identifier Shelf Expiration Date Model / Serial / Lot Lens Intraocular,23. 5d, [id number] Implanted:Qty: 1 on 08/22/2022 by Henrry Matthew MD at [facility] Right: Eye 02/11/2027 [id number] / [id number] / Lens Intraocular,23. 5d, [id number] Implanted:Qty: 1 on 06/19/2023 by Henrry Matthew MD at [facility] Left: Eye 07/09/2027 [id number] / [id number] / Head Femoral Biolox Ceramic -3.5mm Neck 36mm [id number] Implanted:Qty: 1 on 04/21/2024 by Nati Whitney MD at [facility] Right: Hip ASHANTI BIOMET 11/22/2033 [id number] / / [id number] Stem,Femoral,Hi gh Offset Collared,Size 4, [id number] Implanted:Qty: 1 on 04/21/2024 by Nati Whitney MD at [facility] Right: Hip Ashanti 02/05/2029 [id number] / / [id number] Screw Bone Acetabular Trilogy Full Thread Hex Drive Cancellous Self Tapping Ti 6.5x25mm [id number] Implanted:Qty: 1 on 04/21/2024 by Nati Whitney MD at [facility] Right: Hip ASHANTI [employer]ET 08/07/2033 [id number] / / [id number] Screw Bone Acetabular Trilogy Full Thread Hex Drive Cancellous Self Tapping Ti 6.5x20mm [id number] Implanted:Qty: 1 on 04/21/2024 by Nati Whitney MD at [facility] Right: Hip ASHANTI BI[employer]ET 06/08/2033 [id number] / / [id number] Liner,G7 Longevity,High Wall,36mm D, [id number] Implanted:Qty: 1 on 04/21/2024 by Nati Whitney MD at [facility] Right: Hip 02/24/2029 [id number] / / [id number] Shell,Acetabula r,3 Hole,50mm, [id number] Implanted:Qty: 1 on 04/21/2024 by Nati Whitney MD at [facility] Right: Hip 02/14/2034 [id number] / / [id number] Procedures Procedure Name Priority Date/Time Associated Diagnosis [...] SPIROMETRY - OFFICE (03/18/2024) Lazaro Murillo MD [facility] - IN OFFICE * CT LUNG [...] Category: 2 - Benign Lazaro Murillo MD [facility] [address] ORDERABLE S * BONE MINERAL DENSITY [...] was performed by dual energy x-ray absorptiometry (Clinked Advance instrument) for the lumbar spine and bilateral hips. Images of the hips and lumbar spine recorded in the course of this study were also evaluated visually. This study was supervised and viewed for interpretation by both the staff physician and resident physician. Annemarie Hutson, MR # [id number], completed a BMD test on 08/13/2023 using the [employer] System at [facility]. BASELINE STUDY DATED: 07/09/2010 PREVIOUS STUDY [...] matched), sex, weight, ethnicity. Kareen Winchester MD [facility] IM BMD * MAMMOGRAPHY SCREENING BILATERAL (08/13/2023 11:53 [...] reasons. Procedure Note Arsen Martinez MD / Chantal Montes De Oca MD - 08/16/2023 Procedure: [...] repeated for technical reasons. Kareen Winchester MD [facility] IMG MAMMO OR DERABLES * FECAL DNA (COLOGUARD) - OFFICE (07/09/2023 8:45 PM EDT) Pathologist [facility] Fecal DNA (COLOGUARD) Office Negative Negative 07/17/2023 5:24 PM EDT [employer] (CLIA #:[id number]) Comment: NEGATIVE TEST RESULT. A negative Cologuard [...] (Gus Luu al, N Engl J Med 2014;370(14):6939-2376) The normal value (reference range) for this assay is negative. COLOGUARD RE-SCREENING RECOMMENDATION: Periodic colorectal cancer screening is an important part of preventive healthcare for asymptomatic individuals at average risk for colorectal cancer. Following a negative Cologuard result, the [place] [employer] Society and U.S[place] Multi-Society Task Force screening guidelines recommend a Cologuard re-screening interval of 3 years. References: [place] [employer] Guideline for Colorectal Cancer Screening: https://www.cancer.org/cancer/wuanu-lavdyj-gyqvcs/lmrcepgph-zddrovbaa-mlxtceu/ac s-rec ommendations.html.; Leon DK, Lorri CLEMENTE, Yaquelin ColvinK, Colorectal Cancer Screening: Recommendations for Physicians and Patients from the U.S. Multi-Society Task Force on Colorectal Cancer Screening , Am J Gastroenterology 2017; 112:0255-2589. TEST DESCRIPTION: Composite algorithmic analysis of stool [...] (Gus Luu al, N Engl J Med 2014;370(14):1280-4910.) Cologuard may produce a false negative or false positive result (no colorectal cancer or precancerous polyp present at colonoscopy follow up). A negative Cologuard test result does not guarantee the absence of CRC or advanced adenoma (pre-cancer). The current Cologuard screening interval is every 3 years. ([place] [employer] and U.S. Multi-Society Task Force). Cologuard performance data in a 10,000 patient pivotal study using colonoscopy as the reference method can be accessed at the following location: www.[employer]/results. Additional description of the Cologuard test process, warnings and precautions can be found at www.cologuard.com. Stool specimen (specimen) SPECIMEN FROM RECTUM / Unknown 07/09/2023 8:45 PM EDT 07/11/2023 10:37 PM EDT Kareen Winchester MD [facility] - IN OFFICE [employer] (CLIA #:[id number]) [address] [place] [address], from Last 3 Months or Most Recently Relevant to Health Maintenance Advance Directives For more information, please contact: [phone] * Full CPR (Latest Code Status on [...] Decision discussed with pat ient/decision-maker Care Teams Glove Wrapper Relationship Specialty Start Date End Date Kareen Winchester MD [address] [place] [address] PCP - General Family Medicine 07/09/10
--- OUTSIDE RECORDS SUMMARY | 2025-02-10 11:29 | XMS_ITS | Referral Summary ---
Author Organization [facility] Address [address] [place] [id number] Care Team Providers Care Superintendent Car Construction Name Role Phone Kareen Winchester MD Primary Care Provider + Encounters Date Type Department Care Team Description 01/23/2025 11:00 AM EDT Outpatient Rehabilitation [facility] - [address] [place] [address] Chronic obstructive pulmonary disease, unspecified COPD type (HCC) (Primary Dx) 01/19/2025 11:00 AM EDT Outpatient Rehabilitation [facility] - [address] [place] [address] Chronic obstructive pulmonary disease, unspecified COPD type (HCC) (Primary Dx) 01/16/2025 1:00 PM EDT Outpatient Rehabilitation [facility] - [address] [place] [address] Chronic obstructive pulmonary disease, unspecified COPD type (HCC) (Primary Dx) 01/13/2025 8:45 AM EDT Office Visit Dr Mya Winchester MD [address] [phone] Kareen Winchester MD Primary hypertension (Primary Dx); Central retinal vein occlusion, left eye, stable (CMS-HCC); Pulmonary emphysema, unspecified emphysema type (HCC); Atherosclerosis of aorta (CMS-HCC); Gastroesophageal reflux disease with esophagitis without hemorrhage; Dyslipidemia; Osteoarthritis of right hip, unspecified osteoarthritis type; 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, in remission (HCC); Paroxysmal atrial fibrillation (HCC); Obstructive chronic bronchitis with exacerbation (HCC); BMI 24.0-24.9, adult 01/12/[address] Mya Winchester MD [address] [place] [address] Kareen Winchester MD MEDICATION REFILL (Pt cld req refill- ipratropium albuterol (DUO-NEB) 0.5-2.5 (3) MG/3ML nebulizer/Last seen 09/30/24 for cough, COPD/[facility] [place]) 01/12/2025 11:00 AM EDT Outpatient Rehabilitation [facility] - [address] [place] [address] Chronic obstructive pulmonary disease, unspecified COPD type (HCC) (Primary Dx) 01/09/2025 11:00 AM EST Outpatient Rehabilitation [facility] - [address] [place] [phone] Chronic obstructive pulmonary disease, unspecified COPD type (HCC) (Primary Dx) 01/05/[address] Mya Winchester MD [address] [phone] Kareen Winchester MD MEDICATION REFILL (PATIENT REQUESTS THE FOLLOWING REFILL/ELIQUIS 5 MG/[facility]/LAST VISIT 10/01/24 COPD) 01/05/2025 11:00 AM EST Outpatient Rehabilitation [facility] - [address] [place] [address] Chronic obstructive pulmonary disease, unspecified COPD type (HCC) (Primary Dx) 01/02/2025 11:00 AM EST Outpatient Rehabilitation [facility] - [address] [place] [address] Chronic obstructive pulmonary disease, unspecified COPD type (HCC) (Primary Dx) 12/29/2024 11:00 AM EST Outpatient Rehabilitation [facility] - [address] [place] [address] Chronic obstructive pulmonary disease, unspecified COPD type (HCC) (Primary Dx) 12/26/2024 11:00 AM EST Outpatient Rehabilitation [facility] - [address] [place] [address] Chronic obstructive pulmonary disease, unspecified COPD type (HCC) (Primary Dx) 12/22/2024 11:00 AM EST Outpatient Rehabilitation [facility] - [address] [place] [address] Chronic obstructive pulmonary disease, unspecified COPD type (HCC) (Primary Dx) 12/19/2024 11:00 AM EST Outpatient Rehabilitation [facility] - [address] [place] [address] Chronic obstructive pulmonary disease, unspecified COPD type (HCC) (Primary Dx) 12/15/2024 11:00 AM EST Outpatient Rehabilitation [facility] - [address] [place] [address] Chronic obstructive pulmonary disease, unspecified COPD type (HCC) (Primary Dx) 12/12/2024 11:00 AM EST Outpatient Rehabilitation [facility] - [address] [place] [address] Chronic obstructive pulmonary disease, unspecified COPD type (HCC) (Primary Dx) 12/08/2024 12:00 PM EST Outpatient Rehabilitation [facility] - [address] [place] [address] Chronic obstructive pulmonary disease, unspecified COPD type (HCC) 12/02/2024 [facility]phone [facility] [address] [facility] [address] [place] [address] Lazaro Murillo MD OTHER (Rx for new nebulizer to [facility] ) 12/02/2024 Telephone [facility] - [address] [facility] [address] [place] [phone] Oralia Lopez, COLD PRESS OPERATOR Referrals 12/02/2024 11:00 AM EST Office Visit [facility] [address] [facility] [address] [place] [address] Lazaro Murillo MD Chronic obstructive pulmonary disease, unspecified COPD type (HCC) (Primary Dx); Other cough; History of COVID-19; PND (post-nasal drip); Former smoker; Anemia, unspecified type; Hypertension, unspecified type; History of osteoporosis 11/17/[address] Mya Winchester [facility] [address] [place] [address] Kareen Winchester MD MEDICATION REFILL (Pt cld req refill, albuterol HFA 108 (90 base) mcg/ACT Inhaler, Atorvastatin (Lipitor) 40 MG, alendronate (Fosamax) 70 MG/Last seen 09/30/24 for Cough/[facility] [place]) from Last 3 Months Allergies Active Allergy Reactions Criticality Noted Date Comments Codeine Anaphylaxis/Shock High 08/18/2010 Ibuprofen GI Distress 09/08/2010 Penicillin G Anaphylaxis/Shock High 08/18/2010 Had reaction > 10 yrs ago, not sure if she has ever had augmentin, amoxicillin, keflex, or ancef Medications sodium chloride 1 g tablet take 1 Tablet by mouth twice daily. 60 tablet 3 12/17/19 24 Active omeprazole (PRILOSEC) 20 mg delayed release capsule take 1 Capsule by mouth once daily before breakfast. 90 capsule 1 07/03/20 23 Active ferrous sulfate 325 (65 Fe) mg tablet take 1 Tablet by mouth once daily. 02/23/20 24 Active Turmeric 400 MG CAPS take by mouth once daily. 12/28/19 Active cholecalciferol (VITAMIN D3) 10 MCG (400 UNIT) CAPS take by mouth once daily. 12/28/19 Active Calcium-Magnesium- Zinc 333-133-5 MG TABS take by mouth once daily. 12/28/19 Active aspirin 81 mg enteric coated tablet take 1 Tablet by mouth every 12 hours. 56 tablet 0 04/22/20 Active Naproxen Sodium 220 MG CAPS take 1 Capsule by mouth every 6 hours as needed (for pain). 60 capsule 0 04/22/20 Active oxyBUTYnin (DITROPAN) 5 mg tabletIndications: Osteoarthritis of right hip, unspecified osteoarthritis type Take 1 tablet by mouth 3 (three) times daily. 180 tablet 3 08/29/20 Active folic acid (FOLVITE) 1 mg tabletIndications: Osteoarthritis of right hip, unspecified osteoarthritis type Take 1 tablet by mouth daily. 90 tablet 08/29/20 Active budesonide/formote rol (SYMBICORT) 160-4.5 MCG/ACT inhalerIndications :COPD with exacerbation (HCC),Osteoarthrit is of right hip, unspecified osteoarthritis type Take 2 puffs by inhalation 2 times daily. 10.2 g 3 08/29/20 Active methylPREDNISolone 4 MG TBPKIndications:CO PD with acute exacerbation (HCC) Follow package directions 21 each 09/30/20 Active benzonatate (TESSALON) 100 mg capsuleIndications :COPD with acute exacerbation (HCC) Take 1 capsule by mouth 3 times daily as needed for Cough. 30 capsule 09/30/20 24 Active albuterol (PROVENTIL) (2.5 mg/3 mL) 0.083 % nebulizationIndica tions:Chronic obstructive pulmonary disease with acute lower respiratory infection (HCC) Take 3 mL by nebulization every 4 hours as needed for Wheezing. 90 each 10/17/20 24 Active alendronate (FOSAMAX) 70 MG tabletIndications: Osteoarthritis of right hip, unspecified osteoarthritis type,COPD with exacerbation (HCC) Take 1 tablet by mouth per week. 12 tablet 3 11/17/19 Active albuterol HFA (PROVENTIL HFA, VENTOLIN HFA, PROAIR HFA) 108 (90 Base) MCG/ACT inhalerIndications :Osteoarthritis of right hip, unspecified osteoarthritis type,Encounter for screening mammogram for high-risk patient,COPD with exacerbation (HCC) Take 2 puffs by inhalation every 4 hours as needed for Wheezing. 3 each 2 11/17/19 25 Active apixaban (ELIQUIS) 5 mg tabletIndications: Essential hypertension Take 1 tablet by mouth 2 times daily. 180 tablet 01/06/20 25 Active ipratropium-albute rol (DUO-NEB) 0.5-2.5 (3) MG/3ML nebulizer solutionIndication s:Centrilobular emphysema (HCC) Take 3 mL by nebulization 4 times daily. 360 mL 1 01/13/20 25 Active atorvastatin (LIPITOR) 40 MG tabletIndications: Dyslipidemia Take 1 tablet by mouth daily. 90 tablet 1 01/14/20 25 Active lisinopril (PRINIVIL,ZESTRIL) 20 MG tabletIndications: Osteoarthritis of right hip, unspecified osteoarthritis type Take 1 tablet by mouth daily. 90 tablet 1 01/14/20 25 Active metoprolol tartrate (LOPRESSOR) 25 MG tabletIndications: Osteoarthritis of right hip, unspecified osteoarthritis type Take 1 tablet by mouth 2 times daily. 180 tablet 01/14/20 25 Active varenicline (CHANTIX) 1 MG tabletIndications: Osteoarthritis of right hip, unspecified osteoarthritis type Take 1 tablet by mouth 2 times daily. 60 tablet 2 01/14/20 25 Active fish oil-omega-3 fatty acids 1000 MG capsule take 1 Capsule by mouth once daily. 06/14/20 23 025 Discontin ued(No Longer Taking) docusate (COLACE) 100 mg capsule take 1 Capsule by mouth once daily. 12/28/19 24 025 Discontin ued(No Longer Taking) CLINDAMYCIN HCL PO take 1 Capsule by mouth once daily. 04/10/20 24 025 Discontin ued(No Longer Taking) lisinopril (PRINIVIL,ZESTRIL) 20 mg tabletIndications: Osteoarthritis of right hip, unspecified osteoarthritis type Take 1 tablet by mouth daily. 90 tablet 1 08/29/20 24 025 Discontin ued(Reord er) varenicline (CHANTIX) 1 mg tabletIndications: Osteoarthritis of right hip, unspecified osteoarthritis type Take 1 tablet by mouth 2 times daily. 60 tablet 2 08/29/20 24 025 Discontin ued(Reord er) metoprolol tartrate (LOPRESSOR) 25 mg tabletIndications: Osteoarthritis of right hip, unspecified osteoarthritis type Take 1 tablet by mouth 2 times daily. 180 tablet 10/01/20 24 025 Discontin ued(Reord er) ipratropium-albute rol (DUO-NEB) 0.5-2.5 (3) MG/3ML nebulizer solutionIndication s:Centrilobular emphysema (HCC) Take 3 mL by nebulization 4 times daily. 360 mL 1 10/17/20 24 025 Discontin ued(Reord er) atorvastatin (LIPITOR) 40 mg tabletIndications: Dyslipidemia Take 1 tablet by mouth daily. 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[facility]) Atherosclerosis of aorta 04/28/2024 History of CVA (cerebrovascular accident) 2023 COPD (chronic obstructive pulmonary disease) 09/2024 Pain of right hip joint 09/11/2023 Primary osteoarthritis of right hip 06/26/2023 Osteoarthritis of right hip 06/26/2023 COPD exacerbation 11/11/2022 Paroxysmal atrial fibrillation 11/09/2022 Influenzal acute upper respiratory infection 03/2023 Acute pericarditis ([facility]-HCC) 10/23/2022 Chest pain 10/22/2022 Atrial fibrillation 10/22/2022 Leukocytosis 10/22/2022 GERD (gastroesophageal reflux disease) Occlusion and stenosis of bilateral carotid pako suhail 10/13/2022 COVID-19 10/07/2022 Hyponatremia 10/06/2022 Advanced care planning/counseling discussion Overview (05/16/2024): Yumiko villarreal-[phone]=daughter COPD with exacerbation 05/18/2018 Central retinal artery occlusion 05/18/2018 Dyslipidemia 05/18/2018 CRAO (central retinal artery occlusion), left Tobacco abuse 05/17/2018 Sinus congestion 05/17/2018 Essential hypertension 05/17/2018 CRVO (central retinal vein occlusion) 05/17/2018 Syncope 06/12/2015 Fibrocystic mastitis 08/20/2010 Immunizations Immunization Administration Dates Next Due Fluzone High Dose Quad >=65 06/26/2022, Influenza Quad Pres Free 10/11/2013 Influenza Quad Pres Free Fluad >=65 08/15/2023 Influenza adjuvanted trivale nt PF (Fluad) 06/27/2019 Influenza high-dose trivalen t PF (Fluzone) 08/20/2024,06/18/2020,06/17/2018,2016,07/17/2016,07/20/2015 Influenza split virus trival ent preservative (IIV3) 11/05/2021,08/19/2009 MODERNA SARS-COV-2 VACCINATION ,07/01/2021,02/09/2021,2020 Moderna SARS-COV-2 12yrs and older 08/15/2023 Moderna SARS-CoV-2 BIVALENT 09/17/2022 PPSV23 (Pneumovax) 07/17/2016 Pfizer SARS-COV-2 12yrs and older 08/20/2024 Pneumococcal conjugate PCV13 (Prevnar 13) 07/20/2015 RSV Adjuvant Vaccine (Arexvy) 07/11/2023 Tdap 10/11/2013 Zoster (Zostavax) 05/24/2015 Social History Tobacco Use Types Packs/Day Years Used Date Smoking Tobacco: Former Cigarettes 0.5 53 1 966 - 11/05/2018 Smokeless Tobacco: Former Quit: 11/05/2018 Tobacco Cessation:Counseling Given: Not Answered Comments:Hx 49 years 1/2 to 1 ppd. Multiple attempts to quit starting in 1992 Alcohol Use Standard Drinks/Week Comments Not Currently 0 (1 standard drink = 0.6 oz pur e alcohol) PHQ-2 Answer Date Recorded PHQ-2 Depression Score - If > 2, have the patient complete remainder of PHQ-9 0 01/23/2025 Comments Unknown Sex and Gender Information Value Date Recorded Sex Assigned at Female 01/23/2024 10:45 PM EDT Legal Sex Female 10:45 PM EDT Gender Identity Female 01/23/2024 10:45 PM EDT Sexual Orientation Straight 01/23/2024 10 :45 PM EDT Last Filed Vital Signs Vital Sign Reading Time Taken Comments Blood Pressure 124/74 01/23/2025 12:06 PM EDT Pulse 83 01/23/2025 12:06 PM EDT Temperature 36.9 C (98.4 F) 01/13/2025 9:10 AM EDT Respiratory Rate 18 01/23/2025 11:02 AM EDT Oxygen Saturation 94% 01/23/2025 12:06 PM EDT Inhaled Oxygen Concentration - - Weight 60.8 kg (134 lb) 01/16/2025 12:53 PM EDT Height 157.5 cm (5' 2.01 ) 01/23/2025 11:34 AM E DT Body Mass Index 24.51 01/16/2025 12:53 PM EDT Functional Status * Is the person deaf or does he/she have serious difficulty hearing? Answer Date of Assessment Author No 01/13/2025 9:21 AM EDT * Is this person blind or does he/she have serious difficulty seeing even when wearing glasses? Answer Date of Assessment Author No 01/13/2025 9:21 AM EDT * Does this person have serious difficulty walking or climbing stairs? Answer Date of Assessment Author No 01/13/2025 9:21 AM EDT * Does this person have difficulty dressing or bathing? Answer Date of Assessment Author No 01/13/2025 9:21 AM EDT * Because of a physical, mental, or emotional condition, does this person have difficulty doing errands alone such as visiting a doctor's office or shopping? Answer Date of Assessment Author No 01/13/2025 9:21 AM EDT Mental Status * Because of a physical, mental, or emotional condition, does this person have serious difficulty concentrating, remembering, or making decisions? Answer Entry Date Author No 01/13/2025 9:21 AM EDT Plan of Treatment Upcoming Encounters Date Type Department Care Team (Late st Contact Info) Description 06/02/2025 9:30 AM EDT Office Visit [facility] [address] [facility] [address] [place] [address] Lazaro Murillo MD [address] [facility] [address] [place] [phone] Medical Devices Implanted Type Area Drilling Engineering Manager Device Identifier Shelf Expiration Date Model / Serial / Lot Lens Intraocular,23. 5d, [id number] Implanted:Qty: 1 on 08/22/2022 by Henrry Matthew MD Right: Eye 02/11/2027 [id number] / [id number] / Lens Intraocular,23. 5d, [id number] Implanted:Qty: 1 on 06/19/2023 by Henrry Matthew MD Left: Eye 07/09/2027 [id number] / [id number] / Head Femoral Biolox Ceramic -3.5mm Neck 36mm [id number] Implanted:Qty: 1 on 04/21/2024 by Nati Whitney MD Right: Hip [employer] 11/22/2033 [id number] / / [id number] Liner,G7 Longevity,High Wall,36mm D, [id number] Implanted:Qty: 1 on 04/21/2024 by Nati Whitney MD Right: Hip 02/24/2029 [id number] / / [id number] Screw Bone Acetabular Trilogy Full Thread Hex Drive Cancellous Self Tapping Ti 6.5x20mm [id number] Implanted:Qty: 1 on 04/21/2024 by Nati Whitney MD Right: Hip [employer] 06/08/2033 [id number] / / [id number] Screw Bone Acetabular Trilogy Full Thread Hex Drive Cancellous Self Tapping Ti 6.5x25mm [id number] Implanted:Qty: 1 on 04/21/2024 by Nati Whitney MD Right: Hip [employer] 08/07/2033 [id number] / / [id number] Shell,Acetabula r,3 Hole,50mm, [id number] Implanted:Qty: 1 on 04/21/2024 by Nati Whitney MD Right: Hip 02/14/2034 [id number] / / [id number] Stem,Femoral,Hi gh Offset Collared,Size 4, [id number] Implanted:Qty: 1 on 04/21/2024 by Nati Whitney MD Right: Hip 02/05/2029 [id number] / / [id number] Description:Drilling Engineering Manager: Zi mmer Procedures Procedure Name Priority Date/Time Associated Diagnosis Comments BCS SCREENING MAMMOGRAM BILATERAL Routine 09/12/2024 9:10 AM EST Encounter for screening mammogram for high-risk patient CT LUNG SCREEN Routine 08/14/2024 10:02 AM EDT Former smoker EXT LIPID PANEL Routine 12/15/2023 9:42 AM EST Well adult exam DEXA BONE DENSITY AXIAL Routine 08/13/2023 12:44 PM EDT Post-menopause EXT FECAL DNA (COLOGUARD) - OFFICE Routine 07/09/2023 8:45 PM EDT Colon cancer screening from Last 3 Months or Most Recently Relevant to Health Maintenance Results * [facility] Screening Mammogram Bilateral (09/12/2024 9:10 AM EST) Anatomical Region Laterality Modality breast Bilateral Mammography Impressions 09/20/2024 9:22 AM EST NEGATIVE - There is no mammographic evidence of malignancy. BI-RADS CATEGORY: Overall: 1 - Negative RECOMMENDATION: - Screening mammogram of both breasts Patient information entered into a reminder system with a target due date for the next mammogram (09/12/2025). The patient will be notified of the breast imaging results. Sun Pedroza MD Narrative 09/20/2024 9:22 AM EST PROCEDURE: BCS Screening Mammogram Bilateral The study was acquired using full field digital technology and interpreted from soft copy. Current study was also evaluated with a Computer Aided Detection (CAD) system. HISTORY: Patient is 74 years old and asymptomatic. Family medical history includes breast cancer in niece. Surgical history includes breast biopsy. COMPARISONS : 07/13/2021 [facility]CS Screening Mammogram Bilateral 07/27/2022 [facility] Screening Mammogram Bilateral 08/13/2023 BCS Screening Mammogram Bilateral BREAST COMPOSITION: The breasts are heterogeneously dense, which may obscure small masses. FINDINGS: No suspicious masses, calcifications or architectural distortion are seen. There has been no significant interval change. us Kareen Winchester MD MAMMO ORDERABLES Final R esult * CT Lung Screen (08/14/2024 10:02 AM EDT) Anatomical Region Laterality Modality Body, Chest Computed Tomogra phy 08/14/2024 10:1 4 AM EDT Impressions 08/16/2024 9:27 AM EDT 1. No suspicious pulmonary nodules. Similar emphysematous changes Recommendation: Follow-up annual lung cancer screening CT in one year Lung-RADS Category: 2 Radiation dose reduction techniques were employed per protocol. CTDIvol: 2.4 mGy. DLP: 85 mGy-cm. Narrative 08/16/2024 9:[address] LUNG SCREEN: 08/14/2024 9:37 AM CLINICAL DATA: Lung cancer screening. COMPARISON STUDY: November 2023 and remote exams. TECHNIQUE: Multiple axial non-contrast images were obtained from the lung apices through the upper abdomen (2mm slice thickness). Coronal, sagittal and axial MIP reformatted images were obtained. Low dose technique was utilized. FINDINGS: Lack of intravenous contrast and low dose technique limits the evaluation of the vascular and soft tissue structures. ======== LUNGS: Similar emphysematous changes. Mild bronchial wall thickening involving the lower lobes SIGNIFICANT NODULES: (defined as part solid nodules, nodules with suspicious morphologic features, solid nodules >5mm on a baseline exam, new nodules >3mm on subsequent exams). Similar small noncalcified pulmonary nodules, benign as seen in the left lower lobe measuring 0.4 cm. No new nodules LARGE AIRWAYS: Unremarkable. PLEURA: Unremarkable. HEART: Moderate coronary artery calcifications present. MEDIASTINUM AND LISETH: Unremarkable. VASCULAR STRUCTURES: Unremarkable. CHEST WALL AND DIAPHRAGM: Unremarkable. LOWER NECK: Unremarkable. UPPER ABDOMEN: Unremarkable. MUSCULOSKELETAL: Degenerative changes involving the spine Procedure Note Aries Zarco MD - 08/16/2024 CT LUNG SCREEN: 08/14/2024 9:37 AM CLINICAL DATA: Lung cancer screening. COMPARISON STUDY: November 2023 and remote exams. TECHNIQUE: Multiple axial non-contrast images were obtained from thelung apices through the upper abdomen (2mm slice thickness). Coronal, sagittaland axial MIP reformatted images were obtained. Low dose technique wasutilized. FINDINGS: Lack of intravenous contrast and low dose technique limits the evaluation of the vascular and soft tissue structures. ======== LUNGS: Similar emphysematous changes. Mild bronchial wall thickeninginvolving the lower lobes SIGNIFICANT NODULES: (defined as part solid nodules, nodules withsuspicious morphologic features, solid nodules >5mm on a baseline exam, new nodules>3mm on subsequent exams). Similar small noncalcified pulmonary nodules, benign as seen in the leftlower lobe measuring 0.4 cm. No new nodules LARGE AIRWAYS: Unremarkable. PLEURA: Unremarkable. HEART: Moderate coronary artery calcifications present. MEDIASTINUM AND LISETH: Unremarkable. VASCULAR STRUCTURES: Unremarkable. CHEST WALL AND DIAPHRAGM: Unremarkable. LOWER NECK: Unremarkable. UPPER ABDOMEN: Unremarkable. MUSCULOSKELETAL: Degenerative changes involving the spine IMPRESSION: 1. No suspicious pulmonary nodules. Similar emphysematous changes Recommendation: Follow-up annual lung cancer screening CT in one year Lung-RADS Category: 2 Radiation dose reduction techniques were employed per protocol. CTDIvol:2.4 mGy. DLP: 85 mGy-cm. Lazaro Murillo MD CT ORDERABLES Final Result * EXT Lipid Panel (12/15/2023 9:42 AM EST) EXT Cholesterol 171 <200 mg/dL [facility] (CLIA#: [id number]) Comment: <200 mg/dL Desirable 200-239 mg/dL Borderline High >=240 mg/dL High EXT Triglycerides 51 <150 mg/dL B [facility] (CLIA#: [id number]) Comment: <150 mg/dL Normal 150-199 mg/dL Borderline high 200-499 mg/dL High >=500 mg/dL Very High EXT HDL Cholesterol 71 >=50 mg/dL [facility] (CLIA#: [id number]) EXT LDL Cholesterol, Calculated 90 <=129 mg/dL [facility] (CLIA#: [id number]) Comment: <70 mg/dL Desirable if very high risk <100 mg/dL Desirable if high risk 100-129 mg/dL Above desirable 130-159 mg/dL Borderline high 160-189 mg/dL High >=190 mg/dL Very high EXT Non-HDL Cholesterol,Calcul ated 100 <=159 mg/dL [facility] (CLIA#: [id number]) Comment: <130 mg/dL Desirable 130-159 mg/dL Above desirable 160-189 mg/dL Borderline high 190-219 mg/dL High >=220 mg/dL Very high Ext Chol/HDL Ratio 2.4 1.8 - 4.9 B [facility] (CLIA#: [id number]) Blood VENOUS BLOOD SPECIMEN / Unknown 12/15/2023 9:42 AM EST 12/15/2023 10:14 AM EST us Kareen Winchester MD LAB BLOOD ORDERABLES Fin al Result [facility] (CLIA#: [id number]) [address] [place] [address] * DEXA Bone Density Axial (VFA if indicated) (08/13/2023 12:44 PM EDT) Anatomical Region Laterality Modality Dexa Impressions 08/29/2023 8:06 AM EDT : 1. [...] was performed by dual energy x-ray absorptiometry ([employer] instrument) for the lumbar spine and bilateral hips. Images of the hips and lumbar spine recorded in the course of this study were also evaluated visually. This study was supervised and viewed for interpretation by both the staff physician and resident physician. Annemarie Hutson, MR # [id number], completed a BMD test on 08/13/2023 using the [employer] [facility] at [facility]. BASELINE STUDY DATED: 07/09/2010 PREVIOUS STUDY [...] adult; Z, age matched), sex, weight, ethnicity. Procedure Note Rehan Méndez MD - 04/25/2024 Table formatting from the original result was not included. BONE MINERAL ANALYSIS INDICATION: 73 year old female considered at risk for osteoporosis. Bone mineral analysis was performed by dual energy x-ray absorptiometry ([employer] Advance instrument) for the lumbar spine and bilateral hips. Images of the hips and lumbar spine recorded in the course of this study were also evaluated visually. This study was supervised and viewed for interpretation by both the staff physician and resident physician. Annemarie Hutson, MR # [id number], completed a BMD test on 08/13/2023 using the Isis Parent[employer] System at [facility]. BASELINE STUDY DATED: 07/09/2010 PREVIOUS STUDY [...] adult; Z, age matched), sex, weight, ethnicity. IMPRESSION: : 1. The bone mineral density for the lumbar spine at the L1-L4 level gives a mild fracture risk. The bone mineral density for the lumbar spine at the L2-L4 level gives a mild fracture risk. 2. The fracture risk of the mean femoral neck is moderate. The fracture risk of the mean total hip is moderate to high. us Kareen Winchester MD DEXA ORDERABLES Final Re sult * EXT Fecal Dna (Cologuard) - Office (07/09/2023 8:45 PM EDT) Ext Fecal DNA (Cologuard) - Office Negative Negative [employer] (CLIA #:[id number]) Comment: NEGATIVE TEST RESULT. A negative Cologuard [...] (Gus Luu al, N Engl J Med 2014;370(14):2826-9913) The normal value (reference range) for this assay is negative. COLOGUARD RE-SCREENING RECOMMENDATION: Periodic colorectal cancer screening is an important part of preventive healthcare for asymptomatic individuals at average risk for colorectal cancer. Following a negative Cologuard result, the [employer] [place] Cancer Society and U.S. Multi-Society Task Force screening guidelines recommend a Cologuard re-screening interval of 3 years. References: [employer] [place] Cancer Society Guideline for Colorectal Cancer Screening: https://www.cancer.org/cancer/xuohr-fybbcc-eafoed/ystkgboix-ulqkwenpb-bgavges/ac s-rec ommendations.html.; Leon WEINSTEIN, Lorri CLEMENTE, Yaquelin KILLIAN, Colorectal Cancer Screening: Recommendations for Physicians and Patients from the U.S. Multi-Society Task Force on Colorectal Cancer Screening , Am J Gastroenterology 2017; 112:1946-7247. TEST DESCRIPTION: Composite algorithmic analysis of stool [...] (Gus Luu al, N Engl J Med 2014;370(14):0138-9267.) Cologuard may produce a false negative or false positive result (no colorectal cancer or precancerous polyp present at colonoscopy follow up). A negative Cologuard test result does not guarantee the absence of CRC or advanced adenoma (pre-cancer). The current Cologuard screening interval is every 3 years. ([employer] [place] Cancer Society and U.S. Multi-Society Task Force). Cologuard performance data in a 10,000 patient pivotal study using colonoscopy as the reference method can be accessed at the following location: www.Comic Rocket/results. Additional description of the Cologuard test process, warnings and precautions can be found at www.[employer].com. Stool SPECIMEN FROM RECTUM / Unknown 07/09/2023 8:45 PM EDT 07/11/2023 10:37 PM EDT us Kareen Winchester MD LAB BLOOD ORDERABLES Fin al Result [employer] [facility] (CLIA #:[id number]) [address] [place] [address], [facility] (CLIA #:[id number]) [address] [place] [address] from Last 3 Months or Most Recently Relevant to Health Maintenance Insurance [place] [address] [facility] PPO PLUS BLUE [place] [address] [facility] Care Teams Superintendent Car Construction Relationship Specialty Start Date End Date Kareen Winchester MD [address] [place] [phone] PCP - General Family Medicine 07/09/10
--- OUTSIDE RECORDS SUMMARY | 2025-02-10 11:29 | XMS_ITS ---
Author Organization [employer] ([facility] ore 05/25/2024) ([employer]) Address [address] [place] [address] Care Team Providers Care Bullet Slugs Inspector Name Role Phone Kareen Winchester MD Primary Care Provider + Active Problems Problem Noted Date Diagnosed Date [...] Advanced care planning/counseling discussion Overview (07/01/2021): Yumiko villarreal-[phone]=daughter Central retinal artery occlusion 05/18/2018 Dyslipidemia 05/18/2018 COPD with exacerbation 05/18/2018 CRAO (central retinal artery occlusion), left Tobacco abuse 05/17/2018 Essential hypertension 05/17/2018 Sinus congestion 05/17/2018 CRVO (central retinal vein occlusion) 05/17/2018 Syncope 06/12/2015 Fibrocystic mastitis 08/20/2010 Current Oncology Plans No current plan information found. Past Plans No past plan information found. Radiation Treatments * No radiation treatments are documented for this patient in [facility]. Treatments may have been administered in another system. Lifetime Dose Tracking * Chemical Lifetime Dose Automatic Entry Manual Entr y DLP 2,472 mGy 2,472 mGy 0 mGy CTDI 203.2 mGy 203.2 mGy 0 mGy Radiation 147 DLP 147 DLP 0 DLP Resolved Problems Problem Noted Date Diagnosed Date Resolved Date Combined forms of age-relate d cataract of left eye 06/19/2023 06/19/2023 Cancer 11/07/2022 12/17/2023 Hypotension 10/22/2022 10/23/2022 Combined forms of age-relate d cataract of right eye 08/22/2022 08/22/2022 Sinusitis, acute 09/13/2011 08/27/2015 Bronchitis 09/13/2011 08/27/2015
--- OUTSIDE RECORDS SUMMARY | 2025-02-10 11:29 | XMS_ITS | Clinical Summary ---
Author Organization [facility] Address [address] [place] [address] Care Team Providers Care Administration Manager Name Role Phone Kareen Winchester MD Primary [...] take 1 Tablet by mouth once daily. 12/28/19 24 Active Turmeric 400 MG CAPS take by mouth once daily. 12/28/19 24 Active cholecalciferol (VITAMIN D3) 10 MCG (400 UNIT) CAPS take by mouth once daily. 12/28/19 24 Active Calcium-Magnesium- Zinc 333-133-5 MG TABS take by mouth once daily. 12/28/19 24 Active aspirin 81 mg enteric coated tablet take 1 Tablet by mouth every 12 hours. 56 tablet 0 04/22/20 24 Active Naproxen Sodium 220 MG CAPS take 1 Capsule by mouth every 6 hours as needed (for pain). 60 capsule 0 04/22/20 24 Active oxyBUTYnin (DITROPAN) 5 mg tabletIndications: Osteoarthritis of right hip, unspecified osteoarthritis type Take 1 tablet by mouth 3 (three) times daily. 180 tablet 3 08/29/20 24 Active folic acid (FOLVITE) 1 mg tabletIndications: Osteoarthritis of right hip, unspecified osteoarthritis type Take 1 tablet by mouth daily. 90 tablet 08/29/20 24 Active budesonide/formote rol (SYMBICORT) 160-4.5 MCG/ACT inhalerIndications :COPD with exacerbation (HCC),Osteoarthrit is of right hip, unspecified osteoarthritis type Take 2 puffs by inhalation 2 times daily. 10.2 g 3 08/29/20 24 Active methylPREDNISolone 4 MG TBPKIndications:CO PD with acute exacerbation (HCC) Follow package directions 21 each 09/30/20 24 Active benzonatate (TESSALON) 100 mg capsuleIndications :COPD [...] mouth per week. 12 tablet 3 11/17/19 25 Active albuterol HFA (PROVENTIL HFA, VENTOLIN HFA, [...] tablet by mouth daily. 30 tablet 11/17/19 25 025 Discontin ued(Reord er) Active Problems Problem Noted Date Diagnosed Date Alcohol dependence in remission 04/28/2024 Other specified coagulation defects (HHS-HCC) Atherosclerosis of aorta 04/28/2024 History of CVA (cerebrovascular accident) 2023 COPD (chronic obstructive pulmonary disease) 09/2024 Pain of right hip joint 09/11/2023 Primary osteoarthritis of right hip 06/26/2023 Osteoarthritis of right hip 06/26/2023 COPD exacerbation 11/11/2022 Paroxysmal atrial fibrillation 11/09/2022 Influenzal acute upper respiratory infection 03/2023 Acute pericarditis (HHS-HCC) 10/23/2022 Chest pain 10/22/2022 Atrial fibrillation 10/22/2022 Leukocytosis 10/22/2022 GERD (gastroesophageal reflux disease) Occlusion and stenosis of bilateral carotid pako suhail 10/13/2022 COVID-19 10/07/2022 Hyponatremia 10/06/2022 Advanced care planning/counseling discussion Overview (05/16/2024): Yumiko villarreal-[phone]=daughter COPD with exacerbation 05/18/2018 Central retinal artery occlusion 05/18/2018 Dyslipidemia 05/18/2018 CRAO (central retinal artery occlusion), left Tobacco abuse 05/17/2018 Sinus congestion 05/17/2018 Essential hypertension 05/17/2018 CRVO (central retinal vein occlusion) 05/17/2018 Syncope 06/12/2015 Fibrocystic mastitis 08/20/2010 Encounters Date Type Department Care Team Description 01/23/2025 11:00 AM EDT Outpatient Rehabilitation [facility] - [address] [place] [address] Chronic obstructive pulmonary disease, unspecified COPD type (HCC) (Primary Dx) 01/19/2025 11:00 AM EDT Outpatient Rehabilitation [facility] - [address] [facility] [address] [place] [address] Chronic obstructive pulmonary disease, unspecified COPD type (HCC) (Primary Dx) 01/16/2025 1:00 PM EDT Outpatient Rehabilitation [facility] - [address] [facility] [address] [place] [address] Chronic obstructive pulmonary disease, unspecified COPD type (HCC) (Primary Dx) 01/13/2025 8:45 AM EDT Office Visit Dr Mya Winchester MD [address] [phone] Kareen Winchester MD Primary hypertension (Primary Dx); Central retinal vein occlusion, left eye, stable (CMS-HCC); Pulmonary emphysema, unspecified emphysema type (HCC); Atherosclerosis of aorta (CMS-HCC); Gastroesophageal reflux disease with esophagitis without hemorrhage; Dyslipidemia; Osteoarthritis of right hip, unspecified osteoarthritis type; 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, in remission (HCC); Paroxysmal atrial fibrillation (HCC); Obstructive chronic bronchitis with exacerbation (HCC); BMI 24.0-24.9, adult 01/12/2025 11:00 AM EDT Outpatient Rehabilitation [facility] - [address] [facility] [address] [place] [address] Chronic obstructive pulmonary disease, unspecified COPD type (HCC) (Primary Dx) 01/12/[address] Mya Winchester MD [address] [phone] Kareen Winchester MD MEDICATION REFILL (Pt cld req refill- ipratropium albuterol (DUO-NEB) 0.5-2.5 (3) MG/3ML nebulizer/Last seen 09/30/24 for cough, COPD/[facility] [place]) 01/09/2025 11:00 AM EST Outpatient Rehabilitation [facility] - [address] [facility] [address] [place] [address] Chronic obstructive pulmonary disease, unspecified COPD type (HCC) (Primary Dx) 01/05/2025 11:00 AM EST Outpatient Rehabilitation [facility] - [address] [place] [address] Chronic obstructive pulmonary disease, unspecified COPD type (HCC) (Primary Dx) 01/05/[address] Mya Winchester MD [address] [phone] Kareen Winchester MD MEDICATION REFILL (PATIENT REQUESTS THE FOLLOWING REFILL/ELIQUIS 5 MG/[facility]/LAST VISIT 10/01/24 COPD) 01/02/2025 11:00 AM EST Outpatient Rehabilitation [facility] - [address] [place] [address] Chronic obstructive pulmonary disease, unspecified COPD type (HCC) (Primary Dx) 12/29/2024 11:00 AM EST Outpatient Rehabilitation [facility] - [address] [place] [address] Chronic obstructive pulmonary disease, unspecified COPD type (HCC) (Primary Dx) 12/26/2024 11:00 AM EST Outpatient Rehabilitation [facility] - [address] [place] [address] Chronic obstructive pulmonary disease, unspecified COPD type (HCC) (Primary Dx) 12/22/2024 11:00 AM EST Outpatient Rehabilitation [facility] - [address] [place] [address] Chronic obstructive pulmonary disease, unspecified COPD type (HCC) (Primary Dx) 12/19/2024 11:00 AM EST Outpatient Rehabilitation [facility] - [address] [place] [address] Chronic obstructive pulmonary disease, unspecified COPD type (HCC) (Primary Dx) 12/15/2024 11:00 AM EST Outpatient Rehabilitation [facility] - [address] [place] [address] Chronic obstructive pulmonary disease, unspecified COPD type (HCC) (Primary Dx) 12/12/2024 11:00 AM EST Outpatient Rehabilitation [facility] - [address] [facility] [address] [place] [address] Chronic obstructive pulmonary disease, unspecified COPD type (HCC) (Primary Dx) 12/08/2024 12:00 PM EST Outpatient Rehabilitation [facility] - [address] [facility] [address] [place] [address] Chronic obstructive pulmonary disease, unspecified COPD type (HCC) 12/02/2024 11:00 AM EST [facility] [address] [place] [phone] Lazaro Murillo MD Chronic obstructive pulmonary disease, unspecified COPD type (HCC) (Primary Dx); Other cough; History of COVID-19; PND (post-nasal drip); Former smoker; Anemia, unspecified type; Hypertension, unspecified type; History of osteoporosis 12/02/2024 Telephone [facility] [address] [place] [phone] Lazaro Murillo MD OTHER (Rx for new nebulizer to [facility] ) 12/02/2024 Telephone [facility] - [address] [facility] [address] [place] [phone] Oralia Lopez, DISCHARGE COORDINATOR Referrals 11/17/[address] Mya Winchester MD [address] [address] Kareen Winchester MD MEDICATION REFILL (Pt cld req refill, albuterol HFA 108 (90 base) mcg/ACT Inhaler, Atorvastatin (Lipitor) 40 MG, alendronate (Fosamax) 70 MG/Last seen 09/30/24 for Cough/[facility] [place]) from Last 3 Months Immunizations Immunization Administration Dates Next Due Fluzone [...] (Arexvy) 07/11/2023 Tdap 10/11/2013 Zoster (Zostavax) 05/24/2015 Family History Medical History Relation Name Comments Sleep Apnea Brother 1 Hypertension Brother 2 Sleep Apnea Brother 2 Cancer - Other Father kidney Colitis Father Hypertension Father Diverticulitis Mother Heart Mother Breast Cancer Niece Osteoporosis Other Alcohol Use Disorder Sister 1 Tanna Alcohol Use Disorder Sister 2 Leslie Cirrhosis Sister 2 Leslie Hypertension Sister 2 Leslie 1 sister 6 2 -cirhossis Other Family History Neg Hx Relation Name Status Comments Brother [...] Mass Index 24.51 01/16/2025 12:53 PM EDT Plan of Treatment Upcoming Encounters Date Type Department Care Team (Late st Contact Info) Description 06/02/2025 9:30 AM EDT Office Visit [facility] [address] [facility] [address] [place] [address] Lazaro Murillo MD [address] [facility] [address] [place] [address] Health Maintenance Due Date Last Done Comments Hepatitis C Antibody Screening 1950 Tobacco Cessation Counseling 1961 Advance Care Planning Documentation 2014 Shingrix Vaccine (2 of 3) 07/19/2015 05/24/2015 DTaP/Tdap/Td Vaccine (2 - Td or Tdap) 10/11/2023 10/11/2013 Annual Wellness Visit 12/17/2024 12/17/2023 , 12/17/2023, 07/03/2023, Additional history exists Lung Cancer Screening 08/14/2025 08/14/2024 , 11/27/2023, 08/09/2022, Additional history exists Pneumococcal Vaccine 50 plus Completed 07/17/2016, 07/20/2015 FIT-DNA Discontinued 07/09/2023, 07/09/2023 RSV Vaccine (Adult) Completed 07/11/2023 Colonoscopy Discontinued 07/17/2023 Colorectal Cancer Screening Discontinued DXA Bone Density Screening Discontinued 08/13, 08/13/2023, 08/13/2023, Additional history exists Chronic Disease Monitoring Lipid Panel Discontinued 12/15/2023, 12/15/2023, 07/03/2023, Additional history exists COVID-19 Vaccine Completed 08/20/2024, 09/2023, 09/17/2022, Additional history exists Flu Vaccine Completed 08/20/2024, 08/05, 06/26/2022, Additional history exists Breast Cancer Screening (Bilateral) Discontinued 09/12/2024, 08/13/2023, 08/13/2023, Additional history exists CT Colonography Discontinued FIT/iFOBT Discontinued Hepatitis B Vaccine Aged Out No longe r eligible based on patient's age to complete this topic Sigmoidoscopy Discontinued Medical Devices Implanted Type Area Route Process Administrator Device Identifier Shelf Expiration Date Model / Serial / Lot Lens Intraocular,23. 5d, [id number] Implanted:Qty: 1 on 08/22/2022 by Henrry Matthew MD Right: Eye 02/11/2027 [id number] / [id number] / Lens Intraocular,23. 5d, [id number] Implanted:Qty: 1 on 06/19/2023 by Henrry Matthew MD Left: Eye 07/09/2027 [id number] / [id number] / Head Femoral Biolox Ceramic -3.5mm Neck 36mm [id number] Implanted:Qty: 1 on 04/21/2024 by Nati Whitney MD Right: Hip ASHANTI BIOMET 11/22/2033 [id number] / / [id number] Liner,G7 Longevity,High Wall,36mm D, [id number] Implanted:Qty: 1 on 04/21/2024 by Nati Whitney MD Right: Hip 02/24/[id number] / / [id number] Screw Bone Acetabular Trilogy Full Thread Hex Drive Cancellous Self Tapping Ti 6.5x20mm [id number] Implanted:Qty: 1 on 04/21/2024 by Nati Whitney MD Right: Hip ASH[employer]I [employer]ET 06/08/2033 [id number] / / [id number] Screw Bone Acetabular Trilogy Full Thread Hex Drive Cancellous Self Tapping Ti 6.5x25mm [id number] Implanted:Qty: 1 on 04/21/2024 by Nati Whitney MD Right: Hip ASH[employer]I BI[employer]ET 08/07/2033 [id number] / / [id number] Shell,Acetabula r,3 Hole,50mm, [id number] Implanted:Qty: 1 on 04/21/2024 by Nati Whitney MD Right: Hip 02/14/2034 [id number] / / [id number] Stem,Femoral,Hi gh Offset Collared,Size 4, [id number] Implanted:Qty: 1 on 04/21/2024 by Nati Whitney MD Right: Hip 02/05/2029 [id number] / / [id number] Description:Route Process Administrator: Erasmo vicente Procedures Procedure Name Priority Date/Time Associated Diagnosis [...] cancer screening. COMPARISON STUDY: November 2023 and exams. TECHNIQUE: Multiple axial non-contrast images were [...] AM EST) EXT Cholesterol 171 <200 mg/dL [facility] (CLIA#: [id number]) Comment: <200 mg/dL Desirable 200-239 mg/dL Borderline High >=240 mg/dL High EXT Triglycerides 51 <150 mg/dL [facility] (CLIA#: [id number]) Comment: <150 mg/dL Normal 150-199 mg/dL Borderline high 200-499 mg/dL High >=500 mg/dL Very High EXT HDL Cholesterol 71 >=50 mg/dL [facility] (CLIA#: [id number]) EXT LDL Cholesterol, Calculated 90 <=129 mg/dL [facility] (CLIA#: [id number]) Comment: <70 mg/dL Desirable if very high risk <100 mg/dL Desirable if high risk 100-129 mg/dL Above desirable 130-159 mg/dL Borderline high 160-189 mg/dL High >=190 mg/dL Very high EXT Non-HDL Cholesterol,Calcul ated 100 <=159 mg/dL [facility] (CLIA#: [id number]) Comment: <130 mg/dL Desirable 130-159 mg/dL Above desirable 160-189 mg/dL Borderline high 190-219 mg/dL High >=220 mg/dL Very high Ext Chol/HDL Ratio 2.4 1.8 - 4.9 [facility] (CLIA#: [id number]) Blood VENOUS BLOOD SPECIMEN / Unknown 12/15/2023 9:42 AM EST 12/15/2023 10:14 AM EST us Sasenarine S Winchester MD LAB BLOOD ORDERABLES Fin al Result [facility] (CLIA#: [id number]) [address] [place] [address] * DEXA Bone Density Axial (VFA if [...] was performed by dual energy x-ray absorptiometry ([employer] Advance instrument) for the lumbar spine and bilateral hips. Images of the hips and lumbar spine recorded in the course of this study were also evaluated visually. This study was supervised and viewed for interpretation by both the staff physician and resident physician. Annemarie Hutson, MR # [id number], completed a BMD test on 08/13/2023 using the [employer] System at [facility]. BASELINE STUDY DATED: 07/09/2010 PREVIOUS STUDY DATED: [...] was performed by dual energy x-ray absorptiometry ([employer] Advance instrument) for the lumbar spine and bilateral hips. Images of the hips and lumbar spine recorded in the course of this study were also evaluated visually. This study was supervised and viewed for interpretation by both the staff physician and resident physician. Annemarie Hutson, MR # [id number], completed a BMD test on 08/13/2023 using the [employer]X Therapiesx System at [facility]. BASELINE STUDY DATED: 07/09/2010 PREVIOUS STUDY DATED: [...] mean total hip is moderate to high. Kareen Winchester MD DEXA ORDERABLES Final Re sult * EXT Fecal Dna (Cologuard) - Office (07/09/2023 8:45 PM EDT) Ext Fecal DNA (Cologuard) - Office Negative Negative [facility] (CLIA #:[id number]) Comment: NEGATIVE TEST RESULT. A negative Cologuard [...] (Gus Luu al, N Engl J Med 2014;370(14):5141-7986) The normal value (reference range) for this assay is negative. COLOGUARD RE-SCREENING RECOMMENDATION: Periodic colorectal cancer screening is an important part of preventive healthcare for asymptomatic individuals at average risk for colorectal cancer. Following a negative Cologuard result, the [place] Cancer Society and U.S. Multi-Society Task Force screening guidelines recommend a Cologuard re-screening interval of 3 years. References: [place] Cancer Society Guideline for Colorectal Cancer Screening: https://www.cancer.org/cancer/flqlx-jstjfk-zqqcij/epkdqezzs-mjkstcere-usteonc/ac s-rec ommendations.html.; Leon DK, Lorri CLEMENTE, Yaquelin ColvinK, Colorectal Cancer Screening: Recommendations for Physicians and Patients from the U.S. Multi-Society Task Force on Colorectal Cancer Screening , Am J Gastroenterology 2017; 112:4009-8258. TEST DESCRIPTION: Composite algorithmic analysis of stool [...] (Gus Luu al, N Engl J Med 2014;370(14):7591-1054.) Cologuard may produce a false negative or false positive result (no colorectal cancer or precancerous polyp present at colonoscopy follow up). A negative Cologuard test result does not guarantee the absence of CRC or advanced adenoma (pre-cancer). The current Cologuard screening interval is every 3 years. ([place] Cancer Society and U.S. Multi-Society Task Force). Cologuard performance data in a 10,000 patient pivotal study using colonoscopy as the reference method can be accessed at the following location: www.[employer]aha.com/results. Additional description of the Cologuard test process, warnings and precautions can be found at www.cologuard.com. Stool SPECIMEN FROM RECTUM / Unknown 07/09/2023 8:45 PM EDT 07/11/2023 10:37 PM EDT Kareen Winchester MD LAB BLOOD ORDERABLES [facility] al Result [facility] (CLIA #:[id number]) [address] [facility] [address], [facility] (CLIA #:[id number]) [address] [facility] [place] [address] from Last 3 Months or Most Recently Relevant to Health Maintenance [facility] BL[facility] [place] [address] Care Teams Administration Manager Relationship Specialty Start Date End Date Kareen Winchester MD [address] [place] [phone] PCP - General Family Medicine 07/09/10
--- OUTSIDE RECORDS SUMMARY | 2025-02-10 11:30 | XMS_ITS ---
Author Organization [facility] Address [address] [place] [address] Care Team Providers Care Police Shift Commander Name Role Phone Mya Winchester Primary Care Provider Minh Tovar [phone] REASON FOR VISIT test results Encounters Encounter Location Date Provider Diagnosis [facility] [address] [facility] [address] [place] [address] 12/24/2024 Minh Holm Plan Of Treatment Next Appt Details Provider Name:Minh Xie i, 04/14/2025 12:50:00 PM, [address] [place], [address], Progress Notes * Annemarie ORTEGADOB:[birth year] (74 yo F)Acc No.[id number]:12/24/2024 Patient: Francisco Annemarie RUBIO :1950 A ge:74 Y S ex:Female [address] [address] * true * Date: Generated for Printi ng/Faxing/eTransmitting on: 0 02/10/2025 12:29 PM EDT
== END 2025-02-10 12:33 | disposition home or self-care (01) ==
PROVIDERS: Physician Assistant; Emergency Provider Student in an Organized Health Care Education/Training Program
DX: E87.1 Hypo-osmolality and hyponatremia (principal); R55 Syncope and collapse; R00.1 Bradycardia, unspecified; I10 Essential (primary) hypertension
CPT/HCPCS: 36415; 71046; 80053; 84484; 85025; 93005; 96360; 99284; J7030

== ENCOUNTER 2025-10-29 11:06 | Emergency (ER) | payer MEDICARE, OTHER, SELFPAY ==
--- NOTE | ~2025-10-29 | XR_ITS ---
EXAMINATION: XR chest 2V 10/29/2025 12:11 INDICATION: Shortness of breath and cough for one week PROCEDURE: 2 view chest COMPARISON: 02/10/2025 FINDINGS: The lungs are clear. The cardiomediastinal silhouette is within normal limits. There are no pleural effusions. There is no pneumothorax suspected. IMPRESSION: 1: NO ACUTE CARDIOPULMONARY DISEASE. Reviewed, dictated and finalized at location O. DATA ARCHITECT
[2025-10-29 11:08] VITALS: BP 184/80; PULSE 81; RESP 22; TEMP 36.3; O2SAT 97
--- NOTE | 2025-10-29 11:28 | ECG_ITS ---
Test Date: 2025-10-29 11:55:21 Measurements Intervals [place] Rate: 59 P: 44 CO: 168 QRS: 39 QRSD: 83 T: 43 QT: 391 QTc: 390 Interpretive Statements SINUS BRADYCARDIA BASELINE ARTIFACT- I, II, III, AVR, AVL, AVF BORDERLINE ECG Compared to ECG 02/10/2025 09:08:32 No significant changes Electronically Signed On 10-29-2025 16:34:17 [employer] AGENT by Ran Laura D.O.
[2025-10-29 11:50] LABS: Hematocrit 34.4 % (37.0-47.0); Hemoglobin 11.6 g/dL (12.0-15.0); Immature Granulocyte Percent A 0.6 % (0-0.5); Lymphocytes Absolute Auto 1.16 K/mm3 (0.9-3.2); Mean Corpuscular HGB Conc 33.7 g/dl (32-36); Mean Corpuscular Hemoglobin 30.3 pg (26-34); Mean Corpuscular Volume 89.8 fl (80-100); Nucleated Red Blood Cells Absolute Auto 0.000 K/mm3 (0.0-0.012); Nucleated Red Blood Cells Perc 0.0 % (0.0-0.2); Platelet Count Result 290 k/mm3 (150-375); Red Blood Count 3.83 M/mm3 (4.2-5.4); White Blood Count 10.2 K/mm3 (4.5-10.0)
[2025-10-29 12:03] LABS: Alanine Aminotransferase 31 U/L (6-35); Albumin Level 4.0 g/dL (3.5-5.1); Alkaline Phosphatase 70 U/L (38-126); Anion Gap 7 mmol/L (4-12); Aspartate Amino Transferase 38 U/L (14-36); Bilirubin,Total 0.5 mg/dL (0.2-1.3); Blood Urea Nitrogen 4 mg/dL (7-17); Calcium 9.1 mg/dL (8.4-10.2); Carbon Dioxide 25 mmol/L (22-30); Chloride 95 mmol/L (98-107); Estimated CRCL calculation 65 ml/min; Estimated Glomerular Filt Rate > 60; Glucose 115 mg/dL (65-110); Potassium 4.0 mmol/L (3.4-5.0); Sodium 127 mmol/L (137-145); Total Protein 6.9 g/dL (6.3-8.2)
--- NOTE | 2025-10-29 12:15 | ED_ITS ---
HPI - SOB/Dyspnea General Chief Complaint: Shortness of Breath/Dyspnea Stated Complaint: sob Time Seen by Provider: 10/29/25 11:57 Source: patient Mode of arrival: ambulatory Limitations: no limitations History of Present Illness HPI Narrative: This is a 75 yo female with history of COPD who presents to the ED for shortness of breath. Patient states for the past week, she has been having cough and congestion with worsening shortness of breath today. She uses a DuoNeb 4 times daily but this has not helped. No known sick contacts. Denies fevers, chills, chest pain. No recent antibiotic use. No recent steroid use. Related Data Allergies Allergy/AdvReac Type Severity Reaction Status Date / Time Penicillins Allergy Severe Anaphylactic Verified 02/10/25 09:17 Shock ibuprofen (From Motrin) AdvReac Intermediate Abdominal Verified 02/10/25 09:17 Pain codeine AdvReac Unknown Unknown Verified 02/10/25 09:17 Review of Systems 2 Review of Systems: All systems reviewed & are unremarkable except as noted in HPI and below PMFSH Past Medical History Medical History Hypertension Social History Social History Social History: Starting to exercise regularly 2024 Smoking status: Former smoker Exam 2 Narrative: APPEARANCE: No acute distress, nontoxic, resting in bed EYES: EOMI HEENT: Normocephalic, atraumatic, OMM RESPIRATORY: Diminished breath sounds throughout worse on the left compared to the right, no wheezes CARDIOVASCULAR: Regular rate and rhythm without murmurs rubs or gallops. ABDOMINAL: Soft, nontender, nondistended, no rebound or guarding MUSCULOSKELETAl: Moves all extremities. No clubbing, cyanosis or edema. NEURO: Awake and alert. Following commands, speech normal, no focal deficits SKIN:: Warm, dry. No rashes lesions or abrasions PSYCHIATRIC: Normal affect/mood, Course Vital Signs Vital signs: Vital Signs Temperature 97.3 F L 10/29/25 11:08 Pulse Rate 81 10/29/25 11:08 Respiratory Rate 22 H 10/29/25 11:08 Blood Pressure 184/80 H 10/29/25 11:08 Pulse Oximetry 97 10/29/25 11:08 Oxygen Delivery Room Air 10/29/25 11:08 Temperature 97.3 F L 10/29/25 11:08 Pulse Rate 60 10/29/25 14:00 Respiratory Rate 16 10/29/25 14:00 Blood Pressure 168/72 H 10/29/25 14:00 Pulse Oximetry 95 10/29/25 14:00 Oxygen Delivery Room Air 10/29/25 11:08 MDM MDM Narrative Medical decision making narrative: 75-year-old female Presenting for shortness of breath. On initial evaluation patient was in no acute distress afebrile, hemodynamic stable. Differentials include but are not limited to: ACS, CHF Exacerbation, COPD exacerbation, PE, PNA, PTX, bronchitis, viral syndrome Notable exam findings: Diminished breath sounds throughout worse on the left compared to the right I personally reviewed the patient's lab result. Notable lab findings: Mild leukocytosis at 10.2, hyponatremia to 127. COVID/flu/RSV negative. I personally reviewed the patient's images and interpret as follows: Chest x- ray: Normal cardiac silhouette, no consolidations, no pleural effusions, no pulmonary vascular congestion I personally reviewed the patient's EKGs: Sinus bradycardia, normal axis, normal intervals, no acute ST or T-wave changes Patient was given a DuoNeb, prednisone, doxycycline, Rocephin for likely COPD exacerbation. She did have improved breath sounds with the DuoNeb. She was given prescriptions for cefpodoxime, doxycycline, prednisone. She was advised follow-up with her PCP in the next week for re-evaluation. Patient was agreeable to this plan. Given strict return precautions. Differential Diagnosis Differential Diagnosis: ACS, CHF Exacerbation, COPD exacerbation, PE, PNA, PTX, bronchitis, viral syndrome Lab Data 10/29/25 11:43 10/29/25 11:43 Labs: Lab Results 10/29/25 Range/Units 11:43 WBC 10.2 H (4.5-10.0) K/mm3 RBC 3.83 L (4.2-5.4) M/mm3 Hgb 11.6 L (12.0-15.0) g/dL Hct 34.4 L (37.0-47.0) % MCV 89.8 (80-100) fl MCH 30.3 (26-34) pg MCHC 33.7 (32-36) g/dl RDW 12.6 (11.5-14.5) % Plt Count 290 (150-375) k/mm3 MPV 9.7 (7.4-10.4) fl Immature Gran % (Auto) 0.6 H (0-0.5) % Neut % (Auto) 75.2 H (45.5-73.1) % Lymph % (Auto) 11.4 L (18.3-44.2) % [place] % (Auto) 10.2 H (2.6-8.5) % Eos % (Auto) 2.2 (0-4.4) % Baso % (Auto) 0.4 (0.2-1.2) % Lymph # (Auto) 1.16 (0.9-3.2) K/mm3 [place] # (Auto) 1.0 H (0.1-0.6) K/mm3 Eos # (Auto) 0.2 (0-0.3) K/mm3 Baso # (Auto) 0.0 (0.0-0.1) K/mm3 Abs Immat Gran (auto) 0.06 H (0.00-0.031) K/mm3 Absolute Neuts (auto) 7.7 H (1.3-6.7) K/mm3 Absolute Nucleated RBC 0.000 (0.0-0.012) K/mm3 Nucleated RBC % 0.0 (0.0-0.2) % Sodium 127 L (137-145) mmol/L Potassium 4.0 (3.4-5.0) mmol/L Chloride 95 L (98-107) mmol/L Carbon Dioxide 25 (22-30) mmol/L Anion Gap 7 (4-12) mmol/L BUN 4 L D (7-17) mg/dL Creatinine 0.48 L (0.7-1.0) mg/dL Estim Creat Clear Calc 65 ml/min Estimated GFR > 60 (59 - ) Glucose 115 H (65-110) mg/dL Calcium 9.1 (8.4-10.2) mg/dL Total Bilirubin 0.5 (0.2-1.3) mg/dL AST 38 H (14-36) U/L ALT 31 (6-35) U/L Alkaline Phosphatase 70 (38-126) U/L NT-Pro-B Natriuret Pep 355 H (19.9-100) pg/mL Total Protein 6.9 (6.3-8.2) g/dL Albumin 4.0 (3.5-5.1) g/dL Influenza A (RT-PCR) Negative (Negative) Influenza B (RT-PCR) Negative (Negative) RSV (RT-PCR) Negative (Negative) SARS-CoV-2 RNA (RT-PCR) Negative (Negative) Imaging Data Radiologist's impression: ITS Impressions Chest X-Ray 10/29/25 12:17 IMPRESSION: 1: NO ACUTE CARDIOPULMONARY DISEASE. Discharge Plan Discharge Clinical Impression: COPD exacerbation Patient Disposition: Home Condition: Stable Instructions: Antibiotic Form, Doxycycline (By mouth), COPD (Chronic Obstructive Pulmonary Disease) (ED) Additional Instructions: Take prednisone, doxycycline, cefpodoxime as prescribed. Follow-up with your PCP in the next week for re-evaluation. Return to the ED for any new or worsening symptoms. Patient Language: Hungarian Prescriptions: New doxycycline hyclate 100 mg capsule 100 mg PO BID Qty: 10 0RF cefpodoxime 200 mg tablet 200 mg PO BID Qty: 10 0RF Rx Instructions: must administer with a meal/food prednisone 20 mg tablet 40 mg PO DAILY Qty: 8 0RF Follow-up/Referrals: UNKNOWN,DOCTOR [Non-Staff]
[2025-10-29 12:30] LABS: Influenza A QL RT-PCR Negative (Negative); Influenza B QL RT-PCR Negative (Negative); RSV RNA, RT-PCR Negative (Negative); SARS-CoV-2 RNA PCR Negative (Negative)
[2025-10-29 12:33] VITALS: PULSE 56; RESP 16
[2025-10-29] MEDS: IPRATROPIUM 0.5 MG/ALBUTEROL SULFATE 2.5 MG (BASE) AMPUL.NEB 3 ML INHALATION (12:33)
[2025-10-29 12:35] VITALS: PULSE 62; RESP 16
[2025-10-29 12:43] LABS: NT Pro B Type Natriuretic Pept 355 pg/mL (19.9-100)
[2025-10-29 12:57] VITALS: BP 141/84; PULSE 64; RESP 22; O2SAT 95
[2025-10-29] MEDS: DOXYCYCLINE IV 100 MG in SODIUM CHLORIDE 0.9% IV 100 ML IVPB (13:07)
[2025-10-29] MEDS: cefTRIAXone 1 GM in SODIUM CHLORIDE 0.9% IV 50 ML 100 ML IVPB (13:29)
--- OUTSIDE RECORDS SUMMARY | 2025-10-29 13:40 | XMS_ITS | Clinical Summary ---
Author Organization [employer] ([facility] ore 05/25/2024) ([employer] and [employer]) Address [address] [place] [address] Care Team Providers Care Hospital Education Coordinator Name Role Phone Kareen Winchester MD Primary Care Provider + Allergies Active Allergy Reactions Criticality Noted Date Comments Codeine Anaphylaxis/Shock High 08/18/2010 Ibuprofen Micronized GI Distress 09/08/2010 Penicillin G Anaphylaxis/Shock High 08/18/2010 Had reaction > 10 yrs ago, not sure if she has ever had augmentin, amoxicillin, keflex, or ancef Medications * This document contains information received from the source organization and may not represent a complete record from that organization. [place]-3 Fatty Acids 1000 MG PO Cap take 1 Capsule by mouth once daily. Active omeprazole (PriLOSEC) 20 MG PO CAPSULE DELAYED RELEASE take 1 Capsule by mouth once daily before breakfast. 90 Capsule 1 3 Active Additional Information Patient taking differently:20 mg OralEVERY EVENING, Reported on 04/21/2024 oxyBUTYnin (DITROPAN) 5 MG PO Tab take 1 Tablet by mouth twice daily. 180 Tablet 3 3 Active busPIRone (BUSPAR) 5 MG PO Tab [...] 1 Tablet by mouth once daily. Active Calcium-Magnesiu m-Zinc 333-133-5 MG PO Tab take by mouth once daily. Active cetirizine (ZyrTEC) 5 MG PO Chew Tab take 1 Tablet by mouth once daily. Active Alendronate Sodium 70 MG PO Tab take 1 Tablet by mouth every 7 days. Takes on Tuesdays 4 Active lisinopril (PRINIVIL, ZESTRIL) 20 MG PO Tab 1 Tablet once daily. 4 Active varenicline (Chantix) 1 MG PO Tab take 1 Tablet by mouth twice daily. 60 Tablet 1 4 Active albuterol-ipratr opium (DUONEB) 0.5-2.5 (3) MG/3ML INHAL Solution inhale 3 mL into the lungs 3 times daily. 360 mL 1 4 Active mupirocin (BACTROBAN) 2 % EXTERNAL Ointment APPLY PEA-SIZED AMOUNT TO EACH NOSTRIL BOTH AM & PM THE 5 DAYS PRIOR TO SURGERY 30 g 4 Active metoprolol (LOPRESSOR) 25 MG PO Tab take 1 Tablet by mouth twice daily. 180 Tablet 4 Active CLINDAMYCIN HCL PO take 1 Capsule by mouth once daily. Active tiZANidine (ZANAFLEX) 2 MG PO Tab take 1 Tablet by mouth every 8 hours as needed for FOR MUSCLE SPASM. 30 Tablet 4 Active traMADol (ULTRAM) 50 MG PO Tab take 1 Tablet by mouth every 6 hours as needed for FOR MODERATE PAIN or FOR SEVERE PAIN. 10 Tablet 4 Active apixaban (ELIQUIS) 5 MG PO Tab take 1 Tablet by mouth every 12 hours. Hold until cleared by your surgeon 4 Active aspirin (ECOTRIN) 81 MG PO Tablet Delayed Response take 1 Tablet by mouth every 12 hours. 56 Tablet 4 Active Naproxen Sodium 220 MG PO Cap take 1 Capsule by mouth every 6 hours as needed (for pain). 60 Capsule 4 Active albuterol HFA 108 (90 Base) MCG/ACT INHAL Aero SolnIndications: Pulmonary emphysema, unspecified emphysema type (CMS/HCC),COPD, moderate (CMS/HCC) inhale 2 Puffs into the lungs every 4 hours as needed for FOR SHORTNESS OF BREATH. (disp insurance-pref prod) 18 g 3 4 Active atorvastatin (LIPITOR) 40 MG PO TabIndications:H yperlipidemia LDL goal <100 take 1 Tablet by mouth once every night at bedtime. 90 Tablet 4 Active HYDROcodone-acet aminophen (NORCO) 5-325 MG PO TabIndications:C hronic pain disorder,Status post hip surgery take 1 Tablet by mouth every 6 hours as needed for FOR PAIN. 30 Tablet 4 Active budesonide-formo terol (Symbicort) 160-4.5 MCG/ACT INHAL inhaler inhale 2 Puffs into the lungs twice daily. 10.2 g 3 4 Active sodium chloride 1 g PO Tab take 1 Tablet by mouth twice daily. 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 Dyslipidemia 05/18/2018 [...] acute 09/13/2011 08/27/2015 Bronchitis 09/13/2011 08/27/2015 Immunizations Immunization Administration Dates Next Due COVID-19, mRNA, LNP-S, PF, 5 0 mcg/0.5 mL 08/15/2023 Covid-19 Vaccine (Moderna) 07/01/2021,02/09/2021 ,01/12/2021 INFLUENZA SHOT TIV (INJECT) 11/05/2021, 9 Influenza High Dose PF (Fluzone) 020,06/17/2018,08/22/2017,07/17,07/20/2015 Influenza Vaccine, Quadrival ent, (Fluzone High-dose) Injection 06/26/2022,07/01/2021 Influenza Vaccine, Trivalent Adjuvanted PF (Fluad) 06/27/2019 Influenza Vaccine, injection , quadrivalent (Preservative-Free) 10/11/2013 Pneumococcal Conjugate (PCV13)(Eueienl05) 07/20/2015 Pneumococcal Polysaccharide (PPSV23)(Pneumovax) 07/17/2016 RSV, Recombinant, [...] Recorded Patient Health Questionnaire-2 Score 0 07/03/2023 Comments No Sex and Gender Information Value Date Recorded Sex Assigned at Female 09/23/2022 9:12 AM EST Legal Sex Female 7:37 AM EST Gender Identity Female 09/23/2022 9:12 AM EST Sexual Orientation Straight 09/23/2022 9: 12 AM EST 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 on file Not on file Not on file Last Filed Vital Signs Vital Sign Reading [...] 12:32 PM EDT Height 157.5 cm (5' 2) 04/28/2024 12:32 PM EDT Body Mass Index 24.25 04/28/2024 12:32 PM EDT Plan of Treatment Health Maintenance Due Date Last Done Comments SCREENING: DEPRESSION 07/03/2024 07/03/2023 , 07/03/2022, 03/06/2022, Additional history exists SCREENING: FALL RISK 07/03/2024 07/03/2023, 07/03/2022, 03/06/2022, Additional history exists VACCINE: TETANUS,DIPHTHERIA BOOSTER (TD BOOSTER) EVERY 10 YEARS 11/24/2024 11/24/2014, 10/11/2013 CA SCREENING: CT LUNG 11/27/2024 11/27/2023 , 10/23/2022, 08/09/2022, Additional history exists HEALTH MAINTENANCE EXAM (ADULT) 12/17/2024 12/17/2023, 07/03/2023, 07/03/2023, Additional history exists VACCINE: INFLUENZA (#1) 2025 08/15/20, 06/26/2022, 11/05/2021, Additional history exists VACCINE: COVID-19 ( season) 2025 08/15/2023, 09/17/2022, 03/05/2022, Additional history exists FIT-DNA 07/17/2026 07/17/2023, 07/09/2023 [...] age to complete this topic Vaccines: Meningococcal B Aged Out No longer eligible based on patient's age to complete this topic Vaccines: Meningococcal Aged Out No l onger eligible based on patient's age to complete this topic Vaccines: Rotavirus Aged Out No longe r eligible based on patient's age to complete this topic Medical Devices Implanted Type Area Stunner Device Identifier Shelf Expiration Date Model / Serial / Lot Lens Intraocular,23. 5d, [id number] Implanted:Qty: 1 on 08/22/2022 by Henrry Matthew MD at [facility] Right: Eye 02/11/2027 [id number] / [id number] / Lens Intraocular,23. 5d, [id number] Implanted:Qty: 1 on 06/19/2023 by Henrry Matthew MD at [facility] Left: Eye 07/09/2027 [id number] / [id number] / Head Femoral Biolox Ceramic -3.5mm Neck 36mm [id number] Implanted:Qty: 1 on 04/21/2024 by Nati Whitney MD at [facility] Right: Hip [employer]SHANTI BI[employer] 11/22/2033 [id number] / / [id number] Stem,Femoral,Hi gh Offset Collared,Size 4, [id number] Implanted:Qty: 1 on 04/21/2024 by Nati Whitney MD at [facility] Right: Hip Ashanti 02/05/2029 [id number] / / [id number] Screw Bone Acetabular Trilogy Full Thread Hex Drive Cancellous Self Tapping Ti 6.5x25mm [id number] Implanted:Qty: 1 on 04/21/2024 by Nati Whitney MD at [facility] Right: Hip [employer] 08/07/2033 [id number] / / [id number] Screw Bone Acetabular Trilogy Full Thread Hex Drive Cancellous Self Tapping Ti 6.5x20mm [id number] Implanted:Qty: 1 on 04/21/2024 by Nati Whitney MD at [facility] Right: Hip [employer] 06/08/2033 [id number] / / [id number] Liner,G7 Longevity,High Wall,36mm D, [id number] Implanted:Qty: 1 on 04/21/2024 by Nati Whitney MD at [facility] Right: Hip 02/24/2029 [id number] / / [id number] Shell,Acetabula r,3 Hole,50mm, [id number] Implanted:Qty: 1 on 04/21/2024 by Nati Whitney MD at [facility] Right: Hip 02/14/2034 [id number] / / [id number] Procedures Procedure Name Priority Date/Time Associated Diagnosis [...] * PFT - SPIROMETRY - OFFICE (03/18/2024) us Lazaro Murillo MD [facility] AMB PULMONARY - IN OFFICE Fi nal Result * CT LUNG CANCER SCREENING (11/27/2023 9:05 [...] 12 months. Lung-RADS Category: 2 - Benign us Lazaro Murillo MD [facility] IM CT ORDERABLES Final Resu lt * BONE MINERAL DENSITY AXIAL SKELETON (08/13/2023 [...] was performed by dual energy x-ray absorptiometry (Weimi Advance instrument) for the lumbar spine and bilateral hips. Images of the hips and lumbar spine recorded in the course of this study were also evaluated visually. This study was supervised and viewed for interpretation by both the staff physician and resident physician. Annemarie Hutson, MR # [id number], completed a BMD test on 08/13/2023 using the Isofluxx System at [facility]. BASELINE STUDY DATED: 07/09/2010 PREVIOUS STUDY DATED: [...] matched), sex, weight, ethnicity. Kareen Winchester MD [facility] IM BMD Final Re sult * MAMMOGRAPHY SCREENING BILATERAL (08/13/2023 11:53 AM [...] view to be repeated for technical reasons. us Kareen Winchester MD [facility] MAMMO ORDERABLES Edited Result - Final * FECAL DNA (COLOGUARD) - OFFICE (07/09/2023 8:45 PM EDT) Fecal DNA (COLOGUARD) Office Negative Negative 07/17/2023 5:24 PM EDT [facility] (CLIA #:[id number]) Comment: NEGATIVE TEST RESULT. A negative Cologuard [...] (Gus Luu al, N Engl J Med 2014;370(14):6186-3457) The normal value (reference range) for this assay is negative. COLOGUARD RE-SCREENING RECOMMENDATION: Periodic colorectal cancer screening is an important part of preventive healthcare for asymptomatic individuals at average risk for colorectal cancer. Following a negative Cologuard result, the [place] [employer] Society and U.S. Multi-Society Task Force screening guidelines recommend a Cologuard re-screening interval of 3 years. References: [place] [employer] Guideline for Colorectal Cancer Screening: https://www.cancer.org/cancer/fndza-exipco-nbqidj/yranpkdlf-hgxfbydfq-tzjhvyy/ac s-rec ommendations.html.; Leon DK, Lorri CLEMENTE, Yaquelin ColvinK, Colorectal Cancer Screening: Recommendations for Physicians and Patients from the U.S. Multi-Society Task Force on Colorectal Cancer Screening , Am J Gastroenterology 2017; 112:6081-7526. TEST DESCRIPTION: Composite algorithmic analysis of stool [...] screened with both Cologuard and colonoscopy. (Gus Henry, N Engl J Med 2014;370(14):4714-9436.) Cologuard may produce a false negative or false positive result (no colorectal cancer or precancerous polyp present at colonoscopy follow up). A negative Cologuard test result does not guarantee the absence of CRC or advanced adenoma (pre-cancer). The current Cologuard screening interval is every 3 years. ([place] [employer] Society and U.S. Multi-Society Task Force). Cologuard performance data in a 10,000 patient pivotal study using colonoscopy as the reference method can be accessed at the following location: www.[employer]/results. Additional description of the Cologuard test process, warnings and precautions can be found at www.cologuard.com. Stool specimen (specimen) SPECIMEN FROM RECTUM / Unknown 07/09/2023 8:45 PM EDT 07/11/2023 10:37 PM EDT Kareen Winchester MD [facility] - IN OFFICE Final Result [facility] (CLIA #:[id number]) [place] [address], from Last 3 Months or Most Recently Relevant to Health Maintenance Advance Directives For more information, please contact: [phone] * Full CPR (Latest Code Status on [...] Decision discussed with pat ient/decision-maker Care Teams Hospital Education Coordinator Relationship Specialty Start Date End Date Kareen Winchester MD [address] [place] [id number] PCP - General Family Medicine 07/09/10
--- OUTSIDE RECORDS SUMMARY | 2025-10-29 13:40 | XMS_ITS | Clinical Summary ---
Author Organization [employer] [facility] lin Address [address] [place] [address] Care Team Providers Care Visitor Services Coordinator Name Role Phone Pcp, No Primary Care Provider [phone] Social History Tobacco Use Types Packs/Day Years Used Date Smoking Tobacco: Never Assessed Comments Unknown Sex and Gender Information Value Date Recorded Sex Assigned at Not on file Legal Sex Female 7:23 PM EST Gender Identity Not on file Sexual Orientation Not on file Plan of Treatment Not on file Medical Devices [place] [id number] [facility] [place] [id number] Care Teams Visitor Services Coordinator Relationship Specialty Start Date End Date Pcp, Ofe PCP - General Family Medicine 10/24/21
--- OUTSIDE RECORDS SUMMARY | 2025-10-29 13:41 | XMS_ITS | Patient Health Record ---
Author Organization [facility] Address [address] [place] [address] Care Team Providers Care Therapist Speech Name Role Phone Mya Winchester Primary Care Provider Unavailabl e Minh Holm Unavailable [phone] Crescencio Bosch Unavailable [phone] Allergies Allergen (clinical drug ingredient) Drug/Non Drug Allergy documented on EMR Reaction Allergy Type Onset Date Status ibuprofen Ibuprofen stomach upset Drug Allergy Act hipolito codeine Codeine anaphylaxis Drug Allergy Activ e Penicillin anaphylaxis Drug Allergy Acti ve Results Component Value Reference Range Notes -EKG (Not yet reviewed by nora lugo) Interpretation:SR Performing Lab: Notes/Report: SR Reason For Referral Reason [id number] retro Diagnosis 1 Bilateral carotid ar dane stenosis (I65.23) Referred Organization [facility] Referred Provider Minh Holm Referred Address [address] ,[place], [place],[address], Referred Provider Specialty Cardiac Surg hawa Referral Priority Routine Medications Medication SIG (Take, Route, Frequency, Duration) Notes Start Date End Date Status Turmeric 500 MG Capsule as directed Orally Active [place]leton 3 1200 MG Capsule 1 capsule Orally Once a day Active Lisinopril 20 MG Tablet TAKE 1 TABLET BY MOUTH EVERY DAY; Duration: 90 Active Folic Acid Active Metoprolol Tartrate 25 MG Tablet TAKE 1 TABLET BY MOUTH TWICE A DAY WITH FOOD FOR 30 DAYS; Duration: 30 Active Mucinex 600 MG Tablet Extended Release 12 Hour 1 tablet as needed Orally every 12 hrs Active Eliquis 5 MG Tablet 1 tablet Orally Twic e a day; Duration: 90 days Active ZyrTEC 10 MG Tablet Chewable 1 tablet Orally Once a day Active Atorvastatin Calcium 40 MG Tablet 1 tablet Orally Once a day Active Symbicort 160-4.5 MCG/ACT Aerosol 2 puffs Inhalation Twice a day Active Aspirin 81 MG Capsule 1 tablet Orally On ce a day Active Alendronate Sodium 70 MG Tablet 1 tablet 30 minutes before the first food, beverage or medicine of the day with plain water Orally Once a day every 7 days Active oxyBUTYnin Chloride ER 5 MG Tablet Extended Release 24 Hour 1 tablet Orally Once a day Active Albuterol Sulfate HFA 108 (90 Base) MCG/ACT Aerosol Solution 1 puff as needed Inhalation every 4 hrs Active Stool Softener Activ e Zinc Active Fish Oil Active Calcium & Magnesium Carbonates Active Vitamin C Active Flonase Active Spiriva Respimat 2.5 MCG/ACT Aerosol Solution 2 puffs Inhalation once a day Not-Taking Colchicine 0.6 MG Tablet 1 tablet Orally once a day Not-Taking Varenicline Tartrate 1 MG Tablet 1 tablet after eating with a full glass of water Orally TWICE A DAY As needed Active Vitamin B + C Complex Not-Taking busPIRone HCl 5 MG Tablet 1 tablet daily once a day Active clopidogrel 75mg once daily No t-Taking Fluticasone Propionate 50 MCG/ACT Suspension 1 spray in each nostril Nasally Twice a day Active Budesonide-Formoterol Fumarate 160-4.5 MCG/ACT Aerosol 1 puff as needed Inhalation once a day Active Sodium Chloride 1 GM Tablet 1 tablet Orally once a day Active Vitamin B12 1000 MCG Tablet Extended Release 1 tablet Orally once a day Active Wwpihrw-Xruztzvdc-Ehlb 333-133-8.3 MG Tablet 1 tablet with a meal Orally Once a day Active Nebulizer - Device as directed three ti mes a day Active Ferrous Sulfate 325 MG Capsule as directed Orally Active Omeprazole 20 MG Capsule Delayed Release 1 capsule 30 minutes before morning meal Orally Once a day Active Social History Tobacco Use: Social History Observation Description Date Details (start date - stop date) Former Smoker NA - NA Social History Drug/Alcohol: Social Info Question Answer Notes AUDIT-C (Standard) Did you have a drink containing alcohol in the past year? No Points 0 Interpretation Negative Tobacco Use: Social Info Question Answer Notes Tobacco Control (Standard) Tobacco use: Former smoker How long has it been since you last smoked? 5-10 years Section Notes: stopped smoking 2018, smoked for 55 yrs Problems Problem Type SNOMED Code ICD Code Onset Dates Problem Status W/U Status Risk Notes Problem Atrial fibrillation (disorder) (51582839) Afib (I48.91) Active confirmed Problem Paroxysmal atrial fibrillation (124662281) Paroxysmal atrial fibrillation (I48.0) Active confirmed Problem Occlusion and stenosis of multiple and bilateral cerebral arteries (933034682) Bilateral carotid artery stenosis (I65.23) Active confirmed Problem Atherosclerotic heart disease of pechanga coronary artery without angina pectoris (412830286854859) Coronary artery disease involving pechanga coronary artery of pechanga heart without angina pectoris (I25.10) Active confirmed Problem Hyperlipidaemia (83776614) Hyperlipidemia, unspecified hyperlipidemia type (E78.5) Active confirmed Problem Retinal artery occlusion (318925464) Retinal artery occlusion (H34.9) Active confirmed Problem Essential hypertension (54429239) Hypertension, unspecified type (I10) Active confirmed Problem Central retinal artery occlusion (03612310) 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) Active confirmed Vital Signs Heart Rate 66 /min 06/30/2025 Oximetry 95 % 06/30/2025 Height 62 in 06/30/2025 Weight 130 lbs 06/30/2025 BMI 23.77 kg/m2 06/30/2025 Encounters Encounter Location Date Provider Diagnosis [address] [address] [facility] [address] [place] [address] 04/28/2025 Minh Holm Coronary artery dise ase involving pechanga coronary artery of pechanga heart without angina pectoris I25.10 ; Hypertension, unspecified type I10 ; Paroxysmal atrial fibrillation I48.0 ; Bilateral carotid artery stenosis I65.23 ; Hyperlipidemia, unspecified hyperlipidemia type E78.5 ; Other pericarditis, unspecified chronicity I31.8 ; History of COPD Z87.09 ; Former smoker Z87.891 ; Bilateral carotid bruits R09.89 and Retinal artery occlusion H34.9 [facility] [address] [place] [address] [facility] [address] [place] [address] 06/30/2025 Minh Holm Paroxysmal atrial fibrillation I48.0 ; Former smoker Z87.891 ; Bilateral carotid artery stenosis I65.23 ; Bilateral carotid bruits R09.89 ; Coronary artery disease involving pechanga coronary artery of pechanga heart without angina pectoris I25.10 ; Hyperlipidemia, unspecified hyperlipidemia type E78.5 ; Retinal artery occlusion H34.9 ; Hypertension, unspecified type I10 ; Other pericarditis, unspecified chronicity I31.8 ; History of COPD Z87.09 and Chest pain, unspecified type R07.9 [facility] [address] [place] [address] 12/18/2024 Minhcandelaria Xiei [facility] [address] [place] [address] 12/24/2024 Minhcandelaria Xiei [facility] [address] [place] [address] 12/24/2024 Minhcandelaria Xiei [facility] [address] [place] [address] 07/13/2025 Crescencio Bosch Assessments Encounter Date Diagnosis (ICD Code) Assessment Notes Treatment Notes Treatment Clinical Notes Section Notes 04/28/2025 Coronary artery disease involving pechanga coronary artery of pechanga heart without angina pectoris (ICD-10 - I25.10) Patient has a history of coronary artery disease. She had cardiac cath in 10/2022 which showed mild to moderate CAD. EKG today is SR. Patient has a history of coronary artery disease, which is stable at this time. Patient tolerating medications without adverse side effects. Patient is currently on beta brittney, statin, and ASA therapy, but not Plavix. Most recent EF was 71% on 01/08/24 via stress test. No changes to medical therapy will be made at this time. We will continue to monitor. Today, patient reports fatigue, ADAN, and dizziness. Patient says ADAN is due to COPD and she gags up phlegm once a week and coughs up phlegm at 3am. Denies any chest pain or tightness, palpitations, weakness, lightheadedness , swelling, painful extremities, blood in stools/urine, blackout spells. Will continue to monitor. Lexiscan Stress Test 01/08/24: Read as normal perfusion. Official report to follow Cardiac Cath 10/22/22: Impression:1. Mild to moderate coronary artery disease2. Normal LV systolic function with normal filling pressures. 06/30/2025 Paroxysmal atrial fibrillation (ICD-10 - I48.0) Patient has a history of Atrial fibrillation. Previous EKG t is SR. She is on BB and Eliquis therapy. Denies blood in urine, blood in stool, or black tarry stools. Will continue with current meds and continue to monitor. 06/30/2025 Former smoker (ICD-10 - Z87.891) Patient is a former smoker, she quit smoking in 2018. 04/28/2025 Hypertension, unspecified type (ICD-10 - I10) Blood pressure is stable. Patient tolerating medications, denies adverse side effects. Will continue current medications as prescribed and monitored by our office. Patient is advised to maintain a low sodium diet and we will continue to monitor for progression of hypertension. Echocardiogram 03/12/23: Normal LV systolic function with [...] normal with a respiratory response of <50%. 06/30/2025 Bilateral carotid artery stenosis (ICD-10 - I65.23) [...] Physical exam shows right side carotid bruit. A carotid duplex was ordered to reassess the stenosis. Results were seen and disscussed with the patient. Will continue with current meds and continue to monitor. carotid 06/08/25: 1. Mild stenosis in the right internal carotid artery (< 50%). 2. Mild stenosis in the left internal carotid artery (< 50%). 3. Antegrade right vertebral artery flow. 4. Antegrade left vertebral artery flow. 5. Follow up in one year is appropriate if clinically indicated. 04/28/2025 Paroxysmal atrial fibrillation (ICD-10 - I48.0) Patient has a history of Atrial fibrillation. EKG today is SR. She is on BB and Eliquis therapy. Denies blood in urine, blood in stool, or black tarry stools. Will continue with current meds and continue to monitor. 04/28/2025 Bilateral carotid artery stenosis (ICD-10 - I65.23) [...] with current meds and continue to monitor. 06/30/2025 Bilateral carotid bruits (ICD-10 - R09.89) Patient has bilateral carotid bruits, but specifically on the right side. Upon physical examination, doctor heard bruits. A carotid duplex was ordered to reassess the stenosis. Results were seen and disscussed with the patient. Will continue with current meds and continue to monitor. carotid 06/08/25: 1. Mild stenosis in the right internal carotid artery (< 50%). 2. Mild stenosis in the left internal carotid artery (< 50%). 3. Antegrade right vertebral artery flow. 4. Antegrade left vertebral artery flow. 5. Follow up in one year is appropriate if clinically indicated. 06/30/2025 Coronary artery disease involving pechanga coronary artery of pechanga heart without angina pectoris (ICD-10 - I25.10) Patient has a history of coronary artery disease. She had cardiac cath in 10/2022 which showed mild to moderate CAD. EKG today is SR. Patient has a history of coronary artery disease, which is stable at this time. Patient tolerating medications without adverse side effects. Patient is currently on beta brittney, statin, and ASA therapy, but not Plavix. Most recent EF was 71% on 01/08/24 via stress test. No changes to medical therapy will be made at this time. We will continue to monitor. Today, patient reports expireincing some chest tightness recently. Patient states it happens infrequently and does not increase with exercise. Reviewed the Lexiscan results from previous year. Will continue to monitor. Lexiscan Stress Test 01/08/24: Read as normal perfusion. Official report to follow Cardiac Cath 10/22/22: Impression:1. Mild to moderate coronary artery disease2. Normal LV systolic function with normal filling pressures. 04/28/2025 Hyperlipidemia, unspecified hyperlipidemia type (ICD-10 - E78.5) Lipids are managed by primary care physician. We will continue medical therapy and continue monitoring. Patient is encouraged to maintain a low-fat, low-cholesterol , 2 g sodium per day diet and exercise 20-30 minutes daily as tolerated. 04/28/2025 Other pericarditis, unspecified chronicity (ICD-10 - I31.8) [...] normal with a respiratory response of <50%. 06/30/2025 Hyperlipidemia, unspecified hyperlipidemia type (ICD-10 - E78.5) Lipids are managed by primary care physician. We will continue medical therapy and continue monitoring. Patient is encouraged to maintain a low-fat, low-cholesterol , 2 g sodium per day diet and exercise 20-30 minutes daily as tolerated. 06/30/2025 Retinal artery occlusion (ICD-10 - H34.9) Patient has a history of stroke in 2019, central retinal artery occlusion of left eye. 04/28/2025 History of COPD (ICD-10 - Z87.09) Patient has a PMH of COPD for which she sees Dr. Murillo for. Patient reports ADAN. Patient says ADAN is due to COPD and she gags up phlegm once a week and coughs up phlegm at 3am. Denies any chest pain or tightness, palpitations, weakness, lightheadedness , swelling, painful extremities, blood in stools/urine, blackout spells. Will continue to monitor. 04/28/2025 Bilateral carotid bruits (ICD-10 - R09.89) Patient has bilateral carotid bruits, but specifically on the right side. Upon physical examination, doctor heard bruits. Will obtain a carotid duplex to reassess the stenosis. Will continue with current meds and continue to monitor. 04/28/2025 Former smoker (ICD-10 - Z87.891) Patient is a former smoker, she quit smoking in 2018. 06/30/2025 Hypertension, unspecified type (ICD-10 - I10) BP elevated in the office today. Patient will remain on same medications as prescribed and will monitor BP at home. Patient tolerating medications without adverse side effects. If BP remains elevated, patient to contact the office. Low sodium diet advised. Will continue to monitor. Echocardiogram 03/12/23: Normal [...] normal with a respiratory response of <50%. 06/30/2025 Other pericarditis, unspecified chronicity (ICD-10 - I31.8) [...] normal with a respiratory response of <50%. 04/28/2025 Retinal artery occlusion (ICD-10 - H34.9) Patient has a history of stroke in 2019, central retinal artery occlusion of left eye. 06/30/2025 Chest pain, unspecified type (ICD-10 - R07.9) Today, patient reports expireincing some chest tightness recently. Patient states it happens infrequently and does not increase with exercise. Denies SOB, lightheadedness , or dizziness. Reviewed the Lexiscan results from previous year. No changes to medical therapy will be made.Will continue to monitor. 06/30/2025 History of COPD (ICD-10 - Z87.09) Patient has a PMH of COPD for which she sees Dr. Murillo for. Denies any chest pain or tightness, palpitations, weakness, lightheadedness , swelling, painful extremities, blood in stools/urine, blackout spells. Will continue to monitor. Plan Of Treatment Pending Test Test Name Order Date -Carotid doppler 08/20/2024 -EKG 04/28/2025 -EKG 08/20/2024 -EKG 07/04/2022 -EKG 12/18/2023 -Lexiscan 12/18/2023 -Lexiscan 07/04/2022 VASC BILATERAL CAROTID DUPLEX 02/15/2023 Carotid 04/28/2025 Next Appt Details Provider Name:Minh Xie i, 06/29/2026 12:20:00 PM, [address] [place], [address], Insurance Providers Payer Name Payer Address Payer Phone Subscriber Number Group Number Insured Name Patient Relationship to Insured Coverage Start Date Coverage End Date MEDICARE PLUS [address] [address] [place] [address] [id number] Annemarie Hutson Self - patient is the insured MEDICARE [employer]-Claims Department [address] [place] [address] [id number] Annemarie Hutson Self - patient is the [...] stress test 01/08/24 Hospitalization History Reason Date(Month/Year) Covid @ [facility] 10/2022 FLU/ @ [facility] 11/2022
--- OUTSIDE RECORDS SUMMARY | 2025-10-29 13:41 | XMS_ITS ---
Author Organization [employer] ([facility] ore 05/25/2024) ([place] [place] Address [address] [place] [address] Care Team Providers Care Orthodontic Laboratory Technician Name Role Phone Kareen Winchester MD Primary Care Provider + Active Problems * This document contains information received from the source organization and may not represent a complete record from that organization. Problem Noted Date Diagnosed Date Alcohol dependence [...] Advanced care planning/counseling discussion Overview (07/01/2021): Yumiko villarreal-[phone]=daughter Central retinal artery occlusion 05/18/2018 Dyslipidemia 05/18/2018 COPD with exacerbation 05/18/2018 CRAO (central retinal artery occlusion), left Tobacco abuse 05/17/2018 Essential hypertension 05/17/2018 Sinus congestion 05/17/2018 CRVO (central retinal vein occlusion) 05/17/2018 Syncope 06/12/2015 Fibrocystic mastitis 08/20/2010 Current Treatment and Therapy Plans No current plan information found. Past Treatment and Therapy Plans No past plan information found. Lifetime Dose Tracking * Chemical Lifetime Dose [...]
--- OUTSIDE RECORDS SUMMARY | 2025-10-29 13:41 | XMS_ITS | Referral Summary ---
Author Organization [employer] ([facility] ore 05/25/2024) ([employer]) Address [address] [place] [address] Care Team Providers Care Automatic Packer Operator Name Role Phone Kareen Winchester MD Primary [...] represent a complete record from that organization. Lutz-3 Fatty Acids 1000 MG PO Cap take [...] Occlusion and stenosis of bilateral carotid pako suhali 10/13/2022 COVID-19 10/07/2022 Hyponatremia 10/06/2022 Advanced care planning/counseling discussion Overview (07/01/2021): Yumiko villarreal-[phone]=daughter Central retinal artery occlusion 05/18/2018 Dyslipidemia 05/18/2018 [...] injection , quadrivalent (Preservative-Free) 10/11/2013 Pneumococcal Conjugate (PCV13)([id number]) 07/20/2015 Pneumococcal Polysaccharide (PPSV23)(Pneumovax) 07/17/2016 RSV, Recombinant, [...] on file Medical Devices Implanted Type [facility] Teacher Device Identifier Shelf Expiration Date Model / Serial / Lot Lens Intraocular,23. 5d, [id number] Implanted:Qty: 1 on 08/22/2022 by Henrry Matthew MD at [facility] Right: Eye 02/11/2027 [id number] / [id number] / Lens Intraocular,23. 5d, [id number] Implanted:Qty: 1 on 06/19/2023 by Henrry Matthew MD at [facility] Left: Eye 07/09/2027 [id number] / [id number] / Head Femoral Biolox Ceramic -3.5mm Neck 36mm [id number] Implanted:Qty: 1 on 04/21/2024 by Nati Whitney MD at [facility] Right: Hip ASHANTI BIOMET 11/22/2033 [id number] / / [id number] Stem,Femoral,Hi gh Offset Collared,Size 4, [id number] Implanted:Qty: 1 on 04/21/2024 by Nati Whitney MD at [facility] Right: Hip Ashanti 02/05/2029 [id number] / / [id number] Screw Bone Acetabular Trilogy Full Thread Hex Drive Cancellous Self Tapping Ti 6.5x25mm [id number] Implanted:Qty: 1 on 04/21/2024 by Nati Whitney MD at [facility] Right: Hip ASHANTI [employer]OMET 08/07/2033 [id number] / / [id number] Screw Bone Acetabular Trilogy Full Thread Hex Drive Cancellous Self Tapping Ti 6.5x20mm [id number] Implanted:Qty: 1 on 04/21/2024 by Nati Whitney MD at [facility] Right: Hip ASHANTI [employer]ET 06/08/2033 [id number] / / [id number] Liner,G7 Longevity,High Wall,36mm D, [id number] Implanted:Qty: 1 on 04/21/2024 by Nati Whitney MD at [facility] Right: Hip 02/24/2029 [id number] / / [id number] Shell,Acetabula r,3 Hole,50mm, [id number] Implanted:Qty: 1 on 04/21/2024 by Nati Whitney MD at [facility] Right: Hip 02/14/2034 [id number] / / [id number] Procedures Procedure Name Priority Date/Time Associated Diagnosis [...] - OFFICE (03/18/2024) us Lazaro Murillo MD [facility] PULMONARY - IN OFFICE Fi nal [...] 2 - Benign us Lazaro Murillo MD [facility] IM CT ORDERABLES Final Resu lt * [...] was performed by dual energy x-ray absorptiometry ([employer] Advance instrument) for the lumbar spine and bilateral hips. Images of the hips and lumbar spine recorded in the course of this study were also evaluated visually. This study was supervised and viewed for interpretation by both the staff physician and resident physician. Annemarie Hutson, MR # [id number], completed a BMD test on 08/13/2023 using the [employer] System at [facility]. BASELINE STUDY DATED: 07/09/2010 PREVIOUS [...] adult; Z, age matched), sex, weight, ethnicity. us Kareen Winchester MD [facility] IMG BMD Final Re sult * MAMMOGRAPHY SCREENING [...] repeated for technical reasons. Kareen Winchester MD [facility] MAMMO ORDERABLES Edited Result - Final * FECAL DNA (COLOGUARD) - OFFICE (07/09/2023 8:45 PM EDT) Fecal DNA (COLOGUARD) Office Negative Negative 07/17/2023 5:24 PM EDT [facility] (CLIA #:[id number]) Comment: NEGATIVE TEST RESULT. A negative Cologuard [...] Blake et al, N Engl J Med 2014;370(14):7667-5032) The normal value (reference range) for this assay is negative. COLOGUARD RE-SCREENING RECOMMENDATION: Periodic colorectal cancer screening is an important part of preventive healthcare for asymptomatic individuals at average risk for colorectal cancer. Following a negative Cologuard result, the [place] [employer] Society and U.S. Multi-Society Task Force screening guidelines recommend a Cologuard re-screening interval of 3 years. References: [place] [employer] Guideline for Colorectal Cancer Screening: https://www.cancer.org/cancer/xwlbh-msjapa-lbabns/zrwjowcuf-fauaxjcpx-pujajnx/ac s-rec ommendations.html.; Leon DK, Lorri CR, Yaquelin KILLIAN, Colorectal Cancer Screening: Recommendations for Physicians and Patients from the U.S. Multi-Society Task Force on Colorectal Cancer Screening , Am J Gastroenterology 2017; 112:7315-5265. TEST DESCRIPTION: Composite algorithmic analysis of stool [...] screened with both Cologuard and colonoscopy. (Gus Glass. et al, N Engl J Med 2014;370(14):7761-9039.) Cologuard may produce a false negative or false positive result (no colorectal cancer or precancerous polyp present at colonoscopy follow up). A negative Cologuard test result does not guarantee the absence of CRC or advanced adenoma (pre-cancer). The current Cologuard screening interval is every 3 years. ([place] [employer] Society and U.S. Multi-Society Task Force). Cologuard performance data in a 10,000 patient pivotal study using colonoscopy as the reference method can be accessed at the following location: www.BizSlate.com/results. Additional description of the Cologuard test process, warnings and precautions can be found at www.cologSnapeeerd.com. Stool specimen (specimen) SPECIMEN FROM RECTUM / Unknown 07/09/2023 8:45 PM EDT 07/11/2023 10:37 PM EDT us Kareen Winchester MD [facility] - IN OFFICE Final Result [facility] (CLIA #:[id number]) [place] [address], from Last 3 Months or Most Recently Relevant to Health Maintenance Advance Directives For more information, please contact: [phone] * Full CPR (Latest Code Status on [...] Decision discussed with pat ient/decision-maker Care Teams Automatic Packer Operator Relationship Specialty Start Date End Date Kareen Winchester MD [address] [place] [id number] PCP - General Family Medicine 07/09/10
[2025-10-29 14:00] VITALS: BP 168/72; PULSE 60; RESP 16; O2SAT 95
== END 2025-10-29 14:11 | disposition home or self-care (01) ==
LOC: ANHED 13:38
PROVIDERS: Emergency Medicine; Emergency Provider Student in an Organized Health Care Education/Training Program
DX: J44.1 Chronic obstructive pulmonary disease with (acute) exacerbation (principal); I10 Essential (primary) hypertension; Z87.891 Personal history of nicotine dependence; Z20.822 Contact with and (suspected) exposure to COVID-19
CPT/HCPCS: 36415; 71046; 80053; 83880; 85025; 87637; 93005; 94640; 96365; 96367; 99284; J0696; J7512